=== PATIENT | male | born 1940 | race Caucasian/White ===

== ENCOUNTER 2024-03-25 11:54 | Outpatient (CLI) | payer MEDICARE, OTHER, SELFPAY | END 2024-03-25 11:55 | disposition home or self-care (01) | LOC: AMB 04-09 12:19 | PROVIDERS: PCP Internal Medicine Nephrology; Visit Provider Family Medicine | DX: R41.0 Disorientation, unspecified (principal); R53.1 Weakness | CPT/HCPCS: A0425; A0427 ==

== ENCOUNTER 2024-03-25 12:21 | Emergency (ER) | payer MEDICARE, OTHER, SELFPAY ==
--- NOTE | 2024-03-25 12:32 | CRLHL7_ITS ---
For Patients: As a result of the Century Cures Act, medical imaging exams and procedure reports are released immediately into your electronic medical record. You may view this report before your referring provider. If you have questions, please contact your health care provider. INDICATION: FALL. LEFT BACK PAIN Fall and left low anterior chest pain TECHNIQUE: CT of the chest was performed without intravenous contrast. Please note that all CT scans at this facility use dose modulation, iterative reconstruction, and/or weight-based dosing when appropriate to reduce radiation dose to as low as reasonably achievable. COMPARISON: None. FINDINGS: Medical devices: None. Thyroid: Normal. Lymph nodes: Limited evaluation without IV contrast. No supraclavicular, axillary, mediastinal, or hilar lymphadenopathy. Vasculature: Limited evaluation without IV contrast. Aorta and main pulmonary artery diameters are within normal range. Minimal aortic calcification. Heart: Mild coronary artery calcification. No pericardial effusion. Other mediastinal structures: Large hiatal hernia with likely organoaxial volvulus of the stomach. No wall thickening or surrounding fat stranding. Lung parenchyma: Moderate right lower lobe dependent atelectasis versus scarring. 5 millimeter right upper lobe ground-glass pulmonary nodule (3/27). Consensus guidelines for single ground glass lung nodule less than 6 mm, not applicable if known malignancy or immunocompromise: No routine follow up. Airways: No significant abnormality. Pleura: No significant abnormality. Chest wall: Mild bilateral gynecomastia. Upper abdomen: No significant abnormality. Musculoskeletal: Moderate degenerative changes of the visualized spine. Mild T12 wedge-shaped compression deformity. Chronic healed left posterior 7th and right posterior 10th rib fracture deformities. IMPRESSION: 1. Mild T12 wedge-shaped compression deformity. 2. No acute displaced rib fractures are seen. 3. Large hiatal hernia with likely organoaxial volvulus of the stomach is favored to be chronic. No wall thickening or surrounding fat stranding. Please note that all CT scans at this facility use dose modulation, iterative reconstruction, and/or weight-based dosing when appropriate to reduce radiation dose to as low as reasonably achievable. Dictated by Chaim Hoffmann MD @ 03/25/2024 1:41:45 PM (Electronically Signed)
--- NOTE | 2024-03-25 12:34 | ED_ITS ---
HPI - General Adult General Chief complaint: Weakness Stated complaint: fall Time Seen by Provider: 03/25/24 12:32 History of Present Illness HPI narrative: Pt brought in by EMS for c/o unwitnessed fall and weakness. Pt c /o left side/ rib pain. Has slight bruising to that area. Lives at [facility]. Last time seen was 10 am and found at 11 am on the tile floor near the shower. Shivering. Denies hitting his head and no LOC. 83-year-old man presenting to the emergency department via EMS with TTA Was noted around 10:00 a.m. to be in bed at his assisted living facility; apparently was not ready to get up yet. Staff returned about an hour later and found him also undressed on the floor in the bathroom. Was noted noted to hurt at his left low chest; he indicates this here as well. Denies pain or injury elsewhere. Is noted to be shivering. Has not been noted to have a fever. Denies hitting his and denies head, neck or back pain. Underlying history of dementia and some degree of aphasia. Recall is suspect. Accompanied by son who provides medical information Related Data Allergies Allergy/AdvReac Type Severity Reaction Status Date / Time itraconazole Allergy Intermediate Verified 03/25/24 13:13 rivaroxaban Allergy Intermediate Verified 03/25/24 13:13 Sulfa (Sulfonamide Allergy Intermediate Verified 03/25/24 13:13 Antibiotics) Review of Systems Status of ROS: Reports: 6 or more systems reviewed and unremarkable except as noted in History and below [facility] Social History Smoking Status: Never smoker Do you use any of these nicotine containing products: None How often do you have a drink containing alcohol: never AUDIT-C Alcohol total score: 0 Non-prescribed substance use: denies use Exam Narrative: Exam Narrative: Primary survey Vitals are noted. Temperature initially elevated at 99.9. Pulse 109. Breathing easily with open airway. No evidence of bleeding. GCS of 14 --complicated by dementia with some recall difficulty. Pupils are 2 mm and equally reactive. He is moving all extremities without difficulty. Secondary survey General flushing to his face and to upper mid chest. Warmth here as well. Head is atraumatic. Neck is supple nontender. Chest is with some soreness in mild erythema at the mid anterior left lower rib/margin. Chest with equal rise. Lungs appear to be clear. No pain to palpation of the clavicles or shoulders. No pain or irregularity noted to palpation over the pelvis. He is wearing Attends. Light smell of urine. Extremities appear to be free of injury. Feet are faintly erythematous with thickened toenails. I do not see the induration and heat of cellulitis here. Back nontender and without apparent deformity. Const: Vital Signs, click to edit/add: Vital Signs - 24 hr 03/25/24 12:36 03/25/24 15:18 03/25/24 15:59 Temperature 99.9 F H 99.0 F 97.9 F Pulse Rate [Pulse Oximeter] 109 H Respiratory Rate 20 Blood Pressure [Ri ght Upper Arm] 149/88 H Pulse Oximetry 97 Oxygen Delivery Me thod Room Air Documenting provider has reviewed patient's vital signs: yes Course Vital Signs Vital signs: Initial Vital Signs Temperature 99.9 F H 03/25/24 12:36 Temperature Source Temporal Artery Scan 03/25/24 12:36 Pulse Rate 109 H 03/25/24 12:36 Pulse Rhythm Regular 03/25/24 12:36 Respiratory Rate 20 03/25/24 12:36 Blood Pressure 149/88 H 03/25/24 12:36 Blood Pressure Mean 108 H 03/25/24 12:36 Blood Pressure Position Supine 03/25/24 12:36 Pulse Oximetry 97 03/25/24 12:36 Oxygen Delivery Method Room Air 03/25/24 12:36 Vital Signs Temperature 99.9 F H 03/25/24 12:36 Pulse Rate 109 H 03/25/24 12:36 Respiratory Rate 20 03/25/24 12:36 Blood Pressure 149/88 H 03/25/24 12:36 Pulse Oximetry 97 03/25/24 12:36 Oxygen Delivery Method Room Air 03/25/24 12:36 Temperature 97.9 F 03/25/24 15:59 Pulse Rate 109 H 03/25/24 12:36 Respiratory Rate 20 03/25/24 12:36 Blood Pressure 149/88 H 03/25/24 12:36 Pulse Oximetry 97 03/25/24 12:36 Oxygen Delivery Method Room Air 03/25/24 12:36 Medications Administered Medications: Discontinued Medications Generic Name Dose Route Start Last Admin Trade Name Tess PRN Reason Stop Dose Admin Acetaminophen 1,000 mg 03/25/24 12:33 03/25/24 12:49 Acetaminophen 500 Mg Tablet PO 03/25/24 12:34 1,000 mg ONCE ONE Administration Sodium Chloride 1,000 mls @ 1,000 mls/hr 03/25/24 12:32 03/25/24 13:47 0.9 % Sodium Chloride 1000 Ml IV 03/25/24 13:31 Infused .Q1H ONE Infusion Medical Decision Making MDM Narrative Medical decision making narrative: Appears to be cold/shaking which might represent infectious etiology to this fall. Does not appear to be in significant discomfort beyond the it pain at the left anterior lateral rib margin. Would draw blood cultures and collect labs for evidence of infection. Given location of discomfort I did apply point of care ultrasound to the hepatorenal and splenorenal spaces. Do not see any free fluid in either location. Nor do I see any free fluid around the bladder. Fall and poor recall with reproducible pain anterior chest I do think in this patient justifies CT imaging. I requested CT of the chest. I anticipate this catching some upper abdomen as well. IV contrasted chest CT independently reviewed by me appears to be without evidence of displaced rib fracture. I do not see any unusual fluid collections. Radiology over-read below FALL. LEFT BACK PAIN Fall and left low anterior chest pain TECHNIQUE: CT of the chest was performed without intravenous contrast. Please note that all CT scans at this facility use dose modulation, iterative reconstruction, and/or weight-based dosing when appropriate to reduce radiation dose to as low as reasonably achievable. COMPARISON: None. FINDINGS: Medical devices: None. Thyroid: Normal. Lymph nodes: Limited evaluation without IV contrast. No supraclavicular, axillary, mediastinal, or hilar lymphadenopathy. Vasculature: Limited evaluation without IV contrast. Aorta and main pulmonary artery diameters are within normal range. Minimal aortic calcification. Heart: Mild coronary artery calcification. No pericardial effusion. Other mediastinal structures: Large hiatal hernia with likely organoaxial volvulus of the stomach. No wall thickening or surrounding fat stranding. Lung parenchyma: Moderate right lower lobe dependent atelectasis versus scarring. 5 millimeter right upper lobe ground-glass pulmonary nodule (3/). Consensus guidelines for single ground glass lung nodule less than 6 mm, not applicable if known malignancy or immunocompromise: No routine follow up. Airways: No significant abnormality. Pleura: No significant abnormality. Chest wall: Mild bilateral gynecomastia. Upper abdomen: No significant abnormality. Musculoskeletal: Moderate degenerative changes of the visualized spine. Mild T12 wedge-shaped compression deformity. Chronic healed left posterior 7th and right posterior 10th rib fracture deformities. IMPRESSION: 1. Mild T12 wedge-shaped compression deformity. 2. No acute displaced rib fractures are seen. 3. Large hiatal hernia with likely organoaxial volvulus of the stomach is favored to be chronic. No wall thickening or surrounding fat stranding. Was noted to be near febrile at 99.9 on initial exam. This was done with forehead/temporal artery scan thermometer. Considering degree of flushing with this rash that he has been struggling with for some time, and it palpates warm, this could be contributing to the 99.9 initially measured. Rechecked later orally at 97.9 White count is elevated a little bit at 14.4. Not dental sales representative another labs. I do not know what this might represent. BUN does at 48 creatinine 1.5. Urinalysis with some hematuria. Without flank pain or indication of injury in flank and with normal point of care ultrasound of this area, would follow this u p outpatient. It does not appear that he was down more than 1 hour. I do not see indication of muscular injury or swelling that might suggest that CPK should be collected in evaluation for rhabdomyolysis. Discussed findings in CT imaging with General surgery on-call. Discussed also with Mr. Greco and his son and there are no prior images but on repeat exam does not have pain in the epigastrium or upper abdomen other than what was noted on initial exam that seems more associated with ribs. I think this hiatal hernia and volvulus of the stomach is likely chronic and unrelated to today's apparent fall. No events on [place]. Did give acetaminophen during time in the emergency department. On reassessments has appeared well. Mr. Greco is of good energy and anxious to have his IV removed and to leave the emergency department. Ambulates well; at baseline. See patient discharge plan for further discussion This hiatal hernia involving your stomach -- I think this is a chronic condition and you do not appear to have pain here in your abdomen. Prior imaging, if you have this available, could indicate that this was present. We did see a small amount of blood in your urine. I would recheck this in a couple of weeks to hopefully verify resolution. Can take acetaminophen up to 1000 mg per dose for pain. If pain seems to be isolated in that red area on your anterior ribs, might try lidocaine patch. These are available [id number] as well. Return for increasing weakness, controlled pain, increasing shortness of breath Lab Data Lab results reviewed: Yes I reviewed the patient's lab results Labs: Lab Results 03/25/24 03/25/24 03/25/24 Range/Units 12:33 12:57 14:22 WBC 14.42 H (4.50-11.00) K/uL RBC 4.27 L (4.30-5.90) m/uL Hgb 13.6 (13.5-17.5) gm/dL Hct 40.4 (37.0-53.0) % MCV 95 (80-100) fL MCH 32 (26-34) pg MCHC 34 (32-36) gm/dL RDW Coeff of Carolee 12.0 (11.5-15.5) % Plt Count 232 (140-440) K/uL Neut % (Auto) 89.1 H (42.0-72.0) % Lymph % (Auto) 3.2 L (20-44) % [place] % (Auto) 6.6 (0.0-11.0) % Eos % (Auto) 0.0 (0.0-7.0) % Baso % (Auto) 0.1 (0.0-3.0) % Neut # (Auto) 12.80 H (1.7-7.0) K/uL Lymph # (Auto) 0.50 L (0.90-2.90) K/uL [place] # (Auto) 1.00 H (0.00-0.90) K/UL Eos # (Auto) 0.00 (0.00-0.50) K/uL Baso # (Auto) 0.00 (0.00-0.30) K/uL Abs Immat Gran (auto) 0.10 (0.00-0.30) K/uL Imm/Tot Granulo (auto) 1.0 % Sodium 142 (135-149) mmol/L Potassium 4.1 (3.6-5.1) mmol/L Chloride 108 (96-114) mmol/L Carbon Dioxide 27 (20-32) mmol/L Anion Gap 7 (7-15) mEq/L BUN 48 H (7-30) mg/dL Creatinine 1.5 (0.5-1.5) mg/dL Estimated Creat Clear 34.27 Estimated GFR 46 ml/min Glucose 113 (60-115) mg/dL Calcium 9.4 (8.4-10.6) mg/dL Urine Color Yellow (Yellow) Urine Appearance Clear (Clear) Urine pH 6.0 (5.0-8.5) Ur Specific [place] 1.025 (1.000-1.030) Urine Protein 2+ A (Negative) Urine Glucose (UA) Negative (Negative) Urine Ketones Negative (Negative) Urine Blood 2+ A (Negative) Urine Nitrite Negative (Negative) Urine Bilirubin Negative (Negative) Urine Urobilinogen 0.2 (0.2-1.0) Ur Leukocyte Esterase Negative (Negative) Urine RBC 2-5 A (0-2) Urine WBC 0-2 (0-5) Ur Squamous Epith Cells Few (None-Few) Urine Bacteria None (None) Coarse Granular Casts Few A (None) SARS-CoV-2 (PCR) Negative SARS-CoV-2 (Negative) Influenza Type A (PCR) Negative PCR FLU A (Negative) Influenza Type B (PCR) Negative PCR FLU B (Negative) RSV (PCR) Negative PCR RSV (Negative) Critical Care Time Critical Care Time Critical Care Time: Yes Attestation: The patient required my highest level preparedness to intervene emergently and I personally spent this critical care time directly and personally managing the patient. This critical care time included: Obtaining a history; Examining the patient; Pulse oximetry; Ordering and reviewing of studies; Arranging urgent treatment with development of a management plan; Evaluation of patients response to treatment; Frequent reassessment discussions with other providers. This critical care time was performed to assess and manage the high probability of imminent life-threatening deterioration that could result in multiorgan failure. It was exclusive of separate billable procedures and treating other patients and teaching time. Total Critical Care Time in Minutes: 50 Discharge Plan Discharge Clinical Impression: Fall, Contusion of rib, Compression fracture, Hiatal hernia, Hematuria Patient Disposition: Home w/ Parent or Adult Condition: Improved Additional Instructions: This hiatal hernia involving your stomach -- I think this is a chronic condition and you do not appear to have pain here in your abdomen. Prior imaging, if you have this available, could indicate that this was present. We did see a small amount of blood in your urine. I would recheck this in a couple of weeks to hopefully verify resolution. Can take acetaminophen up to 1000 mg per dose for pain. If pain seems to be isolated in that red area on your anterior ribs, might try lidocaine patch. These are available [id number] as well. Return for increasing weakness, controlled pain, increasing shortness of breath Follow Up/Referrals: Kirill Grayson MD [Primary Care Provider] - Stand Alone Forms: [employer] Info Instructions
[2024-03-25 12:36] VITALS: BP 149/88; PULSE 109; RESP 20; TEMP 37.7; O2SAT 97; BMI 24.6
[2024-03-25] MEDS: ACETAMINOPHEN 500 MG TABLET 1000 MG PO (12:49)
[2024-03-25] MEDS: 0.9 % SODIUM CHLORIDE 1000 ml 1,000 ML IV (12:59)
[2024-03-25 13:10] LABS: Basophils Percent Auto 0.1 % (0.0-3.0); Hematocrit 40.4 % (37.0-53.0); Hemoglobin* 13.6 gm/dL (13.5-17.5); Lymphocytes Percent Auto 3.2 % (20-44); Mean Corpuscular HGB Conc 34 gm/dL (32-36); Mean Corpuscular Hemoglobin 32 pg (26-34); Mean Corpuscular Volume 95 fL (80-100); Monocytes Percent Auto 6.6 % (0.0-11.0); Neutrophils Percent Auto 89.1 % (42.0-72.0); Platelet Count* 232 K/uL (140-440); Red Blood Count 4.27 m/uL (4.30-5.90); White Blood Count* 14.42 K/uL (4.50-11.00)
[2024-03-25 13:23] LABS: Chloride* 108 mmol/L (96-114); Potassium* 4.1 mmol/L (3.6-5.1); Sodium* 142 mmol/L (135-149)
[2024-03-25 13:26] LABS: Anion Gap 7 mEq/L (7-15); Blood Urea Nitrogen* 48 mg/dL (7-30); Carbon Dioxide* 27 mmol/L (20-32); Creatinine* 1.5 mg/dL (0.5-1.5); Est. Creatinine Clearance* 34.27; Estimated Glomerular Filt Rate 46 ml/min; Glucose* 113 mg/dL (60-115)
[2024-03-25 13:27] LABS: Calcium* 9.4 mg/dL (8.4-10.6)
[2024-03-25 13:41] LABS: Slide Review Reflex No
[2024-03-25 13:50] LABS: PCR FLU A Negative PCR FLU A (Negative); PCR FLU B Negative PCR FLU B (Negative); PCR RSV Negative PCR RSV (Negative); SARS PCR* Negative SARS-CoV-2 (Negative)
[2024-03-25 14:32] LABS: Appearance Urine Clear (Clear); Bilirubin Urine Negative (Negative); Blood Urine 2+ (Negative); Color Urine Yellow (Yellow); Glucose Urine Negative (Negative); Ketones Urine Negative (Negative); Leukocyte Esterase Urine Negative (Negative); Nitrite Urine Negative (Negative); Protein Urine 2+ (Negative); Specific Gravity Urine 1.025 (1.000-1.030); Urobilinogen Urine 0.2 (0.2-1.0)
[2024-03-25 14:43] LABS: Coarse Granular Casts Urine Few; Squamous Epithelial Cell Urine Few (None-Few); WBC Urine 0-2 (0-5)
[2024-03-25 15:18] VITALS: TEMP 37.2
[2024-03-25 15:59] VITALS: TEMP 36.6
== END 2024-03-25 16:25 | disposition home or self-care (01) ==
PROVIDERS: Emergency Provider Family Medicine; PCP Internal Medicine Nephrology
DX: S22.089A Unspecified fracture of T11-T12 vertebra, initial encounter for closed fracture (principal); W19.XXXA Unspecified fall, initial encounter; S20.212A Contusion of left front wall of thorax, initial encounter; K44.9 Diaphragmatic hernia without obstruction or gangrene; R31.9 Hematuria, unspecified
CPT/HCPCS: 36415; 71250; 80048; 81001; 85025; 87631; 99284; 99285; 99291; A9270; J7030

== ENCOUNTER 2024-10-10 13:04 | Outpatient (REF) | payer MEDICARE, OTHER, SELFPAY ==
--- OUTSIDE RECORDS SUMMARY | 2024-09-20 10:32 | XMS_ITS | Encounter Summary ---
Author Organization [facility] Address [address] [place] [address] Care Team Providers Care Tie Fastener Name Role Phone None Reported, Pcp Primary Care Provider Unavail able Reason for Visit * Reason Comments Fatigue Encounter Details Date Type Department Care Team (Late st Contact Info) Description 09/20/2024 10:32 AM CDT - 09/20/2024 7:22 PM CDT Emergency [place] [facility] [address] [place] [phone] Noel Barragan, FARHAT, C.N.P., D.N.P. [address] [place] [phone] Dehydration (Primary Dx); Hypernatremia; Failure Renal Acute (Acute Kidney Injury); Acidosis Metabolic Anion Gap; Obstruction Bladder Neck Discharge Disposition: Acute Care Hospital Social History Tobacco Use Types Packs/Day Years Used Date Smoking Tobacco: Never Passive Smoke Exposure: Never Smokeless Tobacco: Never Alcohol Use Standard Drinks/Week Comments Not Currently 14 (1 standard drink = 0.6 oz pure alcohol) Drank beer regularly until 2024. Not drinking much alcohol now. [facility] Utilities Answer Date Recorded In the past 12 months has [employer], gas, oil, or water [employer] threatened to shut off services in your home? No 09/20/2024 Humiliation, Afraid, Rape, and Kick questionnair e Answer Date Recorded Within the last year, have y ou been afraid of your partner or ex-partner? No 09/20/2024 Within the last year, have y ou been humiliated or emotionally abused in other ways by your partner or ex-partner? No Within the last year, have y ou been kicked, hit, slapped, or otherwise physically hurt by your partner or ex-partner? No 09/20/2024 Within the last year, have y ou been raped or forced to have any kind of sexual activity by your partner or ex-partner? No 09/20/2024 Hunger Vital Sign Answer Date Recorded Within the past 12 months, y ou worried that your food would run out before you got the money to buy more. Never true 09/21/19 25 Within the past 12 months, t he food you bought just didn't last and you didn't have money to get more. Never true 09/20/2024 PRAPARE - Transportation Answer Date Re corded In the past 12 months, has l ack of transportation kept you from medical appointments or from getting medications? No 07/2024 In the past 12 months, has l ack of transportation kept you from meetings, work, or from getting things needed for daily living? No 09/20/2024 Housing Stability Answer Date Recorded What is your living situation today? 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 on file Not on file Not on file documented as of this encounter Last Filed Vital Signs Vital Sign Reading Time Taken Comments Blood Pressure 138/76 09/20/2024 7:00 PM CDT Pulse 86 09/20/2024 7:00 PM CDT Temperature 36.4 C (97.5 F) 09/20/2024 7:00 PM CDT Respiratory Rate 18 09/20/2024 7:00 PM CDT Oxygen Saturation 100% 09/20/2024 7:00 PM CDT Inhaled Oxygen Concentration - - Weight 61.6 kg (135 lb 12.9 oz) 025 12:00 PM CDT Height - - Body Mass Index 21.75 08/14/2024 1:56 PM CDT documented in this encounter Medications at Time of Discharge acetaminophen (TylenoL) 500 mg tablet Take 1,000 mg by mouth 2 (two) times a day. And twice daily as needed acyclovir (Zovirax) 400 mg tablet Take 400 mg by mouth 2 (two) times a day. alum-mag hydroxide-simeth (Karol-Lanta) 200-200-20 mg/5 mL suspension Take 30 mL by mouth every 6 (six) hours as needed (gastric distress). amLODIPine (NORVASC) 5 mg tablet Take 1 tablet by mouth daily. 03/08/2023 bisacodyL (Dulcolax) 10 mg suppository Insert 10 mg into the rectum daily as needed for constipation. escitalopram (Lexapro) 10 mg tablet Take 10 mg by mouth daily. fluticasone propionate (Flonase) 50 mcg/actuation nasal spray Administer 2 sprays into each nostril daily as needed for rhinitis or allergies. hydrocortisone 1 % cream Apply 1 Application topically daily as needed (itching). ketoconazole (Nizoral A-D) 1 % shampoo Apply 1 Application topically as needed for dandruff. Sunday and loperamide (Imodium A-D) 2 mg tablet Take 2 mg by mouth 4 (four) times a day as needed for diarrhea. magnesium hydroxide 400 mg/5 mL suspension Take 30 mL by mouth every other day as needed. pantoprazole (PROTONIX) 40 mg EC tablet Take 1 tablet by mouth daily. 03/02/2023 atorvastatin (LIPITOR) 20 mg tablet Take 1 tablet by mouth daily. 03/20/2023 cholecalciferol (VITAMIN D3) 50 mcg (2,000 Unit) capsule Take 1 capsule by mouth daily. 5 documented as of this encounter ED Notes * Noel Barragan APRN, C.N.P., D.N.P. - 09/20/2024 10:54 AM CDT Images from the original note were not included. CHIEF COMPLAINT/REASON FOR VISIT Fatigue HISTORY OF PRESENT ILLNESS Patient with a past medical history of multiple myeloma, frontal temporal dementia, Parkinson's, who resides in memory care in [place] presents to the emergency department today being extremely lethargic, falls asleep easily, in his not eaten in the 48 hours. Patient has not been drinking either. Patient is DNR/DNI and this was confirmed with the son was in the room and his medical/power of senior attorney. The son states he visit in his dad yesterday and he was definitely not like himself and had decreased level of consciousness. He has not been eating he was not interested in talking any fell asleep very easily. This a.m. the dementia care unit called saying he did not eat anything it only yesterday. He is noticeably weaker. On exam patient does have some right upper quadrant abdominal tenderness. Rest of the exam he will fall asleep easily. His oral mucosa is very dry. 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 Negative for chills, diaphoresis and fever. HENT: Negative for sinus pressure and sore throat. Respiratory: Negative for cough, chest tightness and shortness of breath. Cardiovascular: Negative for chest pain. Gastrointestinal: Negative for abdominal pain, constipation, diarrhea, nausea and vomiting. Not eaten in 48 hours. Genitourinary: Negative for dysuria, frequency and urgency. Musculoskeletal: Negative for arthralgias and myalgias. Skin: Negative for rash. Neurological: Positive for weakness. Negative for dizziness and headaches. Hematological: Negative for adenopathy. Does not bruise/bleed easily. All other systems reviewed and are negative. Allergies Reviewed in medical record Current Medications Reviewed in Medical Record. PAST HISTORY Medical Medical History[1] Problem List[2] Surgical Surgical History[3] Family Reviewed in Medical Record Social History Social History Tobacco Use Smoking status: Never Passive exposure: Never Smokeless tobacco: Never Substance Use Topics Alcohol use: Not Currently Alcohol/week: 14.0 standard drinks of alcohol Types: 14 Cans of beer per week Comment: Drank beer regularly until 2024. Not drinking much alcohol now. Social History Substance and Sexual Activity Drug Use Never OBJECTIVE Initial Vital Signs / Weights Initial Vitals Temperature 09/20/24 1042 36.6 ??C Pulse Rate 09/20/24 1040 101 Heart Rate -- Resp Rate 09/20/24 1042 16 Blood Pressure 09/20/24 1042 (!) 161/90 SpO2 09/20/24 1040 95 % Pain Score 09/20/24 1039 0 - No pain Wt Readings from Last 3 Encounters: 09/20/24 61.6 kg 08/14/24 66.2 kg 02/12/24 71.2 kg PHYSICAL EXAMINATION Constitutional: Nursing note and vitals reviewed. No distress. Answers yes or no to most questions, then falls asleep. Appears hypovolemic on exam with his oral mucosa being very dry, skin tenting. HENT: Mouth/Throat: Mucous membranes are moist. No tonsillar exudate. Tongue is dry and leathery. Eyes: Conjunctivae and EOM are normal. Pupils are equal, round, and reactive to light. Neck: Neck supple. Cardiovascular: Normal rate, regular rhythm, S1 normal, S2 normal and normal heart sounds. Pulses are strong and palpable. No murmur heard.Capillary refill: takes less than 3 seconds Pulmonary/Chest: Effort normal and breath sounds normal. There is normal air entry. No respiratory distress. Abdominal: Soft. Bowel sounds are normal. exhibits no distension. There is no abdominal tenderness.There is no rebound and no guarding. Musculoskeletal: General: Normal range of motion. Cervical back: Normal range of motion and neck supple. Lymphadenopathy: He has no cervical adenopathy. Neurological: Alert. He is disoriented. Cranial nerve deficit: unable to participate in exam. Only answers yes or no to questions. Skin: Skin is warm, dry and intact. Skin tenting is present. Psychiatric: He has a normal mood and affect. DIAGNOSTICS Labs Labs Reviewed CBC WITH DIFFERENTIAL, B - Abnormal Result Value Hemoglobin 13.6 Hematocrit 41.1 Erythrocytes 4.20 (*) MCV 97.9 RBC Distrib Width 12.8 Platelet Count 250 Leukocytes 16.3 (*) Neutrophils 14.54 (*) Lymphocytes 0.49 (*) Monocytes 1.28 (*) Eosinophils <0.04 Basophils <0.04 COMPREHENSIVE METABOLIC PANEL, S/P - Abnormal Potassium, P 4.2 Sodium, P 147 (*) Chloride, P 109 (*) Bicarbonate, P 21 (*) Anion Gap, P 17 (*) BUN (Blood Urea Nitrogen), P 65 (*) Creatinine 2.35 (*) Estimated GFR (eGFR) 26 (*) Calcium, Total, P 9.7 Glucose, P 139 Protein, Total, P 7.7 Albumin, P 4.8 Aspartate Aminotransferase (AST), P 18 Alkaline Phosphatase, P 63 Alanine Aminotransferase (ALT), P 17 Bilirubin, Total, P 1.6 (*) MAGNESIUM, S - Abnormal Magnesium, P 2.7 (*) URINALYSIS WITH MICROSCOPIC IF INDICATED, U - Abnormal Source Urine, Urine, Midstream Clarity Clear Color Yellow Blood Small (*) Nitrite Negative Leukocyte Esterase Negative Protein 100 (*) Glucose Negative Ketones, QI(U) Negative Bilirubin Negative pH 5.5 Specific Crescent 1.025 Urobilinogen 0.2 C-REACTIVE PROTEIN (CRP), S/P - Abnormal C-Reactive Protein (CRP), P 18.8 (*) MICROSCOPIC MANUAL - Abnormal White Blood Cells Occ-3 Red Blood Cells 11-20 (*) Dysmorphic Red Blood Cells <=25 Squamous Cells Occ-3 Bacteria Present (*) IFLU A, B, SARS COV-2, PCR, RAPID,V Influenza A, PCR, Rapid, V Negative Influenza B, PCR, Rapid, V Negative SARS CoV-2, PCR, Rapid, V Undetected Infl A/B, SARS CoV-2, PCR, Source Swab, Nasopharynx BACTERIA / JOSEY CULTURE, BLOOD Narrative: Specimen Information: Specimen ID: [id number] Specimen Source: Blood, Peripheral Draw Specimen Comment: Specimen Source Site: Blood Specimen Collection Start Date: 09/20/2024 11:42 AM Specimen Received Date: 09/20/2024 11:56 AM Specimen ID: [id number] Specimen Source: Blood, Peripheral Draw Specimen Comment: Specimen Source Site: Blood Specimen Collection Start Date: 09/20/2024 11:42 AM Specimen Received Date: 09/20/2024 11:56 AM Specimen ID: [id number] Specimen Source: Blood, Peripheral Draw Specimen Comment: Specimen Source Site: Blood Specimen Collection Start Date: 09/20/2024 11:42 AM Specimen Received Date: 09/20/2024 11:56 AM BACTERIA / JOSEY CULTURE, BLOOD Narrative: Specimen Information: Specimen ID: [id number] Specimen Source: Blood, Peripheral Draw Specimen Comment: Specimen Source Site: Blood Specimen Collection Start Date: 09/20/2024 11:54 AM Specimen Received Date: 09/20/2024 11:56 AM Specimen ID: [id number] Specimen Source: Blood, Peripheral Draw Specimen Comment: Specimen Source Site: Blood Specimen Collection Start Date: 09/20/2024 11:54 AM Specimen Received Date: 09/20/2024 11:56 AM Specimen ID: [id number] Specimen Source: Blood, Peripheral Draw Specimen Comment: Specimen Source Site: Blood Specimen Collection Start Date: 09/20/2024 11:54 AM Specimen Received Date: 09/20/2024 11:56 AM LIPASE, S/P Lipase, P 38 LACTATE, B/P Lactate, P 1.2 THYROID-STIMULATING HORMONE-SENSITIVE (S-TSH) TSH, Sensitive 0.7 BLOOD GAS, VENOUS, POCT, B pH, Venous, POCT, B 7.35 pCO2, Venous, POCT, B 41 pO2, Venous, POCT, B 37 HCO3, Venous, POCT, B 22 Base Excess, Venous, POCT, B -3 O2 Saturation, Venous, POCT, B 68 Sample Type, Blood Gas, POCT BAILEE GLUCOSE POCT, B Glucose, POCT, B 127 ECG ECG 12 Lead Result Date: 09/20/2024 Normal sinus rhythm with sinus arrhythmia Normal ECG No previous ECGs available Reviewed by JASVIR Alav Radiology CT Abdomen Pelvis without IV Contrast Final Result 1. Mild left hydronephrosis likely secondary to severe bladder distention. 2. Large hiatal hernia containing stomach, portion of duodenum and portion of pancreas. 3. 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 Consider further evaluation with MRI clinically desired DX Chest Portable 1 View Final Result No acute airspace opacities, pleural effusion, or pneumothorax. Chronic right hemidiaphragm elevation and right greater than left basilar atelectasis. Normal heart size. Hiatal hernia. Procedures None See separate procedure note. ED COURSE ED Course as of 09/20/24 1948 Sat Sep 20, 2024 1045 I performed my initial evaluation of the patient. We discussed Emergency Department course including testing, treatment, and potential disposition based on findings. 1126 Leukocytes(!): 16.3 1126 Neutrophils(!): 14.54 Elevated and corncern for infection. 1129 EXAM: DX CHEST PORTABLE 1 VIEW IMPRESSION: No acute airspace opacities, pleural effusion, or pneumothorax. Chronic right hemidiaphragm elevation and right greater than left basilar atelectasis. Normal heart size. Hiatal hernia. 1129 IMPRESSION: Normal sinus rhythm with sinus arrhythmia Normal ECG No previous ECGs available Reviewed by JASVIR Alva 1133 pH, Venous, POCT, B: 7.35 1133 pCO2, Venous, POCT, B: 41 1133 pO2, Venous, POCT, B: 37 1133 HCO3, Venous, POCT, B: 22 1133 Base Excess, Venous, POCT, B: -3 1133 O2 Saturation, Venous, POCT, B: 68 Venous gas is WNL 1138 Lactate: 1.2 Reassuring 1140 Point of care glucose is 127. 1142 Magnesium, P(!): 2.7 elevated 1142 Sodium, P(!): 147 1142 Chloride, P(!): 109 Elevevated more than likely from dehydration. 1143 Creatinine(!): 2.35 Acute kidney injuring creatinine baseline 1.4 1143 Calcium, Total, P: 9.7 Reassuring with hx of Multiple myeloma 1147 Lipase, P: 38 WNL 1150 C-Reactive Protein (CRP), P(!): 18.8 Mildly elevated 1152 TSH, Sensitive: 0.7 WNL 1153 [facility] has no beds available [address] will get ct without contrast due to his kidney function 1209 Blood(!): Small 1209 Protein Urine Random(!): 100 1209 Nitrite, U: Negative 1209 Leukocyte Esterase: Negative Micro in process 1237 IMPRESSION: 1. Mild left hydronephrosis likely secondary to severe bladder distention. 2. Large hiatal hernia containing stomach, portion of duodenum and portion of pancreas. 3. 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 Consider further evaluation with MRI clinically desired [address] riley cath for severely distended bladder. 1313 Had a long discussion with the son who is medical caregiver and decision maker, just how aggressive they want to be. He thinks he would like fluids and antibiotics if needed. He is DNR DNI, I did reconfirm this with them. They would request [facility] as this is closer for them, otherwise [facility] if that is possible. 1314 Riley cath and was left in place after CT resulted. 1400 UOP with riley catheter 1315 Called atc and talked to Pia MANCINI about getting a bed. 1315 Admit likely initiated, will switch to LR and continue rehydration at 200 an hour 1423 Son updated now. Okay with [facility] if we need to admit there 1436 [facility] declined due to staffing, they will try [facility]. 1604 When rechecked on patient patient now is much more alert, his son says he is way more alert than when he came in. He started to pick it his IV a little bit, nursing as to wrap this up. Still waiting for the MO D in [place] to call back. Family was updated on delays. 1638 Discussed the patient with CONSUELO Padilla. She aggrees with the care in the ED. However, he doesn't need specialty care and feels she should be kept locally. He was been declined locally secondary to possible 1.1 care by nursing. They only have 2 nurses for night. [facility], [facility] and [facility] have all declined due to diversion status and [facility] due to possible 1 to 1 status. I did discuss with Dr. Lopez and she states she would admit him but her hands are tied with the nursing issue. She states she will check on something and get back to me. 1655 Discussed the case with Tre Miller with administration he will look into this and get backto me. 1731 I did hear back from the it security administrator on-call. He has no other suggestions at this time, however it looks like [facility] might have a bed. We are going to target there. 1747 Nursing as accepted the patient in [place], waiting to connect to the provider. 1756 Discussed the case with Carmencita YOUNG who accepts the patient in [place]. [address] [facility] Final Diagnoses: as of 09/20/24 1948 Hypernatremia Failure Renal Acute (Acute Kidney Injury) Acidosis Metabolic Anion Gap Dehydration Obstruction Bladder Neck INTERVENTIONS Medications NaCl 0.9 % bolus 1,000 mL (0 mL intravenous Stopped 09/20/24 1335) MEDICAL DECISION MAKING Assessment and Plan Patient with a past medical history of multiple myeloma, frontal temporal dementia, Parkinson's, who resides in memory [facility] in [place] presents to the emergency department today being extremely lethargic, falls asleep easily, in his not eaten in the 48 hours. Patient has not been drinking either. Patient is DNR/DNI and this was confirmed with the son was in the room and his medical/power of senior attorney. The son states he visit in his dad yesterday and he was definitely not like himself and had decreased level of consciousness. He has not been eating he was not interested in talking any fell asleep very easily. This a.m. the dementia care unit called saying he did not eat anything it only yesterday. He is noticeably weaker. On exam patient does have some right upper quadrant abdominal tenderness. Rest of the exam he will fall asleep easily. His oral mucosa is very dry. ddx includes but is not limited to UTI, pneumonia, sepsis, bacteremia, viral infection, infection NOS, electrolyte imbalance, dehydration, anemia, ACS, IN, PE, hypoxia, COPD, CHF, ICH, stroke, neuropathy, hepatic/drug induced encephalopathy, drug reaction, CA, depression, psychosomatic illness, renal insufficiency/failure, hepatic failure, leukemia. Peripheral IV will be placed. Patient will be given a L of fluid. We will get a CBC, CMP, lipase, lactate, TSH, Mag, UA, blood gas, point of care glucose, blood cultures. Will cath him for a UA. We will get a chest x-ray as well as a CT abdomen pelvis for his right upper quadrant pain. Disposition pending workup. Workup in the emergency department showed a leukocytosis with a left shift. Query whether this is from severe dehydration versus infection. I do not see any source of infection at this time. Patient has hypernatremia, hyperchloremia. He also has significant elevation in his creatinine greater than 1.0 rise. Query whether this is from outlet obstruction as he came into the emergency department with severely distended bladder. Riley was placed and this is decompressed. Due to his alteration in mental status, dehydration, acute kidney injury, and significant fatigue I do believe that is best to admit this patient for ongoing fluid resuscitation. Family agrees. They would do antibiotics if needed again patient is DNR DNI. This was confirmed. There was a delay getting a bed as the entire Health system is on divert, will target [place] now. Did update the son. Patient now seems much more alert than when he came in. I feel the fluids are helping. He has had a L of fluid plus now the Ringer's lactate at 200 cc an hour. We will decrease this after another L is in. I did discuss the case with Carmencita Pizano PA-C in [place], she accepts thepatient in transfer. Unfortunately [facility] as unable to take the patient, [facility] was called they were unable to take the patient, we have called johnson baker in [place] for BLS transport. Son is aware of the need to transport the patient back home and he agrees to do this. He is also awareof the need to admit in [place] as this is the only bed available in the health system. I discussed the case with Carmencita YOUNG in [place] hospitalist who accepts the patient. We are also unable tosecure transport for this patient. Being that the 2 L of IV fluids is in, we can kept the IV, the son is willing to take the patient, I believe this would be safe. He is comfortable managing his father. I think this is a reasonable approach. In the meantime patient was signed out to the hat lining paster. Please see their note for any additional information. . DIFFERENTIAL DIAGNOSES As above. PROBLEMS ADDRESSED THIS VISIT As above. Care is significantly affected by the following Social Determinants of Health: none. I reviewed the following external records: primary care records, prior outpatient labs, prior outpatient radiology tests and inpatient records. The following tests were considered but ultimately not performed: none. Escalation of care, including admission/observation, considered: none. DIAGNOSIS Final diagnoses: [E87.0] Hypernatremia [N17.9] Failure Renal Acute (Acute Kidney Injury) [E87.29] Acidosis Metabolic Anion Gap [E86.0] Dehydration [N32.0] Obstruction Bladder Neck DISPOSITION [facility] med surg. DISCHARGE/TRANSFER VITAL SIGNS Vitals: 09/20/24 1900 BP: 138/76 Pulse: 86 Resp: 18 Temp: 36.4 ??C SpO2: 100% Noel Barragan, DNP, LAB ENGINEER, MICROGRINDER OPERATOR-C, AGACNP-BC, ENP-C Emergency Medicine [1] Past Medical History: Diagnosis Date Arthritis Rheumatoid (HCC) 1998 Cataract 2013 Coronary Artery Disease Without Angina Pectoris Dementia (HCC) 2023 Dermatitis 2019 Diabetes Mellitus NOS 1998 Headache Unspecified 2016 Malignant Primary Neoplasm (Unknown Site) Unspecified (HCC) 2019 multiple myeloma Other Injury Of Unspecified Body Region 2016 [address]ism Unspecified (HCC) ST Elevation Myocardial Infarction Of Unspecified Site (HCC) 2004 Stone Kidney 2014 [2] Patient Active Problem List Diagnosis Multiple Myeloma Not Having Achieved Remission (HCC) Other Intermediate Current Drug Therapy Anemia 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 09/20/241947 documented in this encounter Plan of Treatment Upcoming Encounters Date Type Department Care Team (Latest Contact Info) Description 10/20/2024 11:00 AM CDT Comprehensive Visit Department of Urology in [address] [phone] Kimberly Sheldon, THOR, P.A.-C., P.A. [address] [phone] Discharge Disposition: Home or Self Care 10/21/2024 7:45 AM CDT Clinical Communication Virtual Review in [place], [place] [address] [place] [phone] 10/27/2024 11:00 AM CDT Appointment Department of Laboratory Medicine and Pathology, [facility] in [place], [place] [address] [place] [phone] Mira Valencia APRN, C.N.P., D.N.P. [address] [place] [phone] 10/27/2024 1:00 PM CDT Comprehensive Visit Department of Palliative Care in [place], [place] [address] [place] [phone] Faith Mahmood M.D., M.S. [address] [place] [phone] 10/27/2024 3:00 PM CDT Appointment Department of Radiology, [facility], in [place], [place] [address] [place] [phone] Mira Valencia APRN, C.N.P., D.N.P. [address] [place] [phone] 10/29/2024 2:00 PM CDT Telemedicine Department of Medical Genetics in [place], [place] [address] [place] [phone] Óscar Gallegos M.D. [address] [place] [phone] Dora Hernandez M.S., [facility] [address] [place] [phone] documented as of this encounter Procedures Procedure Name Priority Date/Time Associated Diagnosis Comments CT ABDOMEN PELVIS WITHOUT IV CONTRAST RAD - Semiurgent (Fast; most ED patients; some inpatients) 09/20/2024 12:07 PM CDT IFLU A, B, SARS COV-2, PCR, RAPID,V STAT 09/20/2024 12:00 PM CDT BACTERIA / JOSEY CULTURE, BLOOD STAT 09/20/2024 11:54 AM CDT BACTERIA / JOSEY CULTURE, BLOOD STAT 09/20/2024 11:42 AM CDT GLUCOSE POCT, B Routine 09/20/2024 11:37 AM CDT C-REACTIVE PROTEIN (CRP), S/P STAT 09/20/2024 11:35 AM CDT URINALYSIS WITH MICROSCOPIC IF INDICATED, U Routine 09/20/2024 11:11 AM CDT HC URINALYSIS AUTO W MICRO Routine 09/20/2024 11:11 AM CDT VBG (VENOUS BLOOD GAS), POCT, B STAT 09/20/2024 11:10 AM CDT CBC WITH DIFFERENTIAL, B STAT 09/20/2024 11:10 AM CDT MAGNESIUM, S STAT 09/20/2024 11:10 AM CDT LIPASE, S/P STAT 09/20/2024 11:10 AM CDT LACTATE, B/P STAT 09/20/2024 11:10 AM CDT COMPREHENSIVE METABOLIC PANEL, S/P STAT 09/20/2024 11:10 AM CDT THYROID-STIMULATING HORMONE-SENSITIVE (S-TSH) STAT 09/20/2024 11:09 AM CDT ECG STAT 09/20/2024 11:05 AM CDT DX CHEST PORTABLE 1 VIEW RAD - Semiurgent (Fast; most ED patients; some inpatients) 09/20/2024 11:05 AM CDT documented in this encounter Results * CT Abdomen Pelvis without IV Contrast (09/20/2024 12:07 PM CDT) Anatomical Region Laterality Modality Abdomen, Pelvis, Abdominal R ST LOS, Abdominal ARZ LOS, Abdominal FLA LOS N/A Computed Tomography 09/20/2024 12:1 0 PM CDT Impressions 09/20/2024 12:26 PM CDT 1. Mild left hydronephrosis likely secondary to severe bladder distention. 2. Large hiatal hernia containing stomach, portion of duodenum and portion of pancreas. 3. 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 Consider further evaluation with MRI clinically desired Narrative 09/20/2024 12:26 PM CDT EXAM: CT ABDOMEN PELVIS WITHOUT IV CONTRAST COMPARISON: PET CT 04/18/2023, radiographs 09/25/2023 FINDINGS: Lower Thorax: Chronic right hemidiaphragm elevation and subsegmental right basilar atelectasis. Trace left basilar atelectasis. Large hiatal hernia containing stomach, proximal duodenum and a portion of the pancreas. Liver: Few small hypoattenuating foci too small to characterize, but most likely simple cysts Gallbladder/bile ducts: No gallstones or billiary dilation Pancreas: Partially within the hiatal hernia. 12 mm hypoattenuating lesion in the head/neck on series 3 image 110. No ductal dilation Spleen: Within normal limits Adrenal glands: Within normal limits Kidneys/Ureters:Mild left hydronephrosis. No left renal or ureteral calculi . Nonobstructing right renal calculi. Simple appearing cysts bilaterally. Gastrointestinal tract: No wall thickening. Normal caliber large and small bowel. Appendix within normal limits. Colonic diverticulosis without definitive evidence of acute diverticulitis Peritoneum/Retroperitoneum: No free air or free fluid. No suspicious nodule or mass. Lymph nodes: No lymphadenopathy. Vascular: Normal caliber aorta. Atherosclerosis Pelvis: No free fluid. Severely distended bladder.Enlarged prostate Bones/Soft Tissues: No acute or suspicious soft tissue or osseous abnormality. Degenerative changes in the spine. Left greater than right fat-containing inguinal hernias. Surgical changes of the right femur. Multiple chronic compression fractures in the lumbar spine and at T12. Multiple hemangiomas and/or sequela of prior multiple myeloma. Procedure Note Russell Mandujano M.D. - 09/20/2024 EXAM: CT ABDOMEN PELVIS WITHOUT IV CONTRAST COMPARISON: PET CT 04/18/2023, radiographs 09/25/2023 FINDINGS: Lower Thorax: Chronic right hemidiaphragm elevation and subsegmental rightbasilar atelectasis. Trace left basilar atelectasis. Large hiatal herniacontaining stomach, proximal duodenum and a portion of the pancreas. Liver: Few small hypoattenuating foci too small to characterize, but mostlikely simple cysts Gallbladder/bile ducts: No gallstones or billiary dilation Pancreas: Partially within the hiatal hernia. 12 mm hypoattenuating lesionin the head/neck on series 3 image 110. No ductal dilation Spleen: Within normal limits Adrenal glands: Within normal limits Kidneys/Ureters:Mild left hydronephrosis. No left renal or ureteralcalculi . Nonobstructing right renal calculi. Simple appearing cystsbilaterally. Gastrointestinal tract: No wall thickening. Normal caliber large and smallbowel. Appendix within normal limits. Colonic diverticulosis withoutdefinitive evidence of acute diverticulitis Peritoneum/Retroperitoneum: No free air or free fluid. No suspiciousnodule or mass. Lymph nodes: No lymphadenopathy. Vascular: Normal caliber aorta. Atherosclerosis Pelvis: No free fluid. Severely distended bladder.Enlarged prostate Bones/Soft Tissues: No acute or suspicious soft tissue or osseousabnormality. Degenerative changes in the spine. Left greater than rightfat-containing inguinal hernias. Surgical changes of the right femur.Multiple chronic compression fractures in the lumbar spine and at T12. Multiple hemangiomas and/or sequela of priormultiple myeloma. IMPRESSION: 1. Mild left hydronephrosis likely secondary to severe bladderdistention. 2. Large hiatal hernia containing stomach, portion of duodenum and portionof pancreas. 3. 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 Consider furtherevaluation with MRI clinically desired Noel Barragan APRN, C.N.P., D.N.P. IMG CT PROCE DURES Final Result * Influenza A/B, SARS CoV-2, PCR, Rapid Symptomatic (09/20/2024 12:00 PM CDT) Influenza A, PCR, Rapid, V Negative Negative 09/20/2024 12:00 PM CDT CNFL Influenza B, PCR, Rapid, V Negative Negative 09/20/2024 12:00 PM CDT CNFL SARS CoV-2, PCR, Rapid, V Undetected Undetected 09/20/2024 12:00 PM CDT CNFL Infl A/B, SARS CoV-2, PCR, Source Swab, Nasopharynx 09/20/2024 12:00 PM CDT CNFL Swab (Nasopharynx) 09/20/2024 12:00 PM CDT 09/20/2024 12:00 PM CDT Jyothi Rice APRN.N.P., D.N.P. LAB MICROBIOLOGY - GENERAL ORDERABLES Final Result Performing Organization Address [facility] Co de Phone Number [address] [address], [facility] in [address] [address] * Bacteria / Josey Culture, Blood #2 (09/20/2024 11:54 AM CDT) Bacteria/Hilaria da Culture, Blood No growth after 5 day/s of incubation. 09/25/2024 12:02 PM CDT CNFL Blood (Blood, Peripheral Draw) 09/20/2024 11:54 AM CDT 09/20/2024 11:56 AM CDT Comment:Specimen Source Site : Blood us Noel Barragan APRN, Jyothi.N.P., D.N.P. LAB MICROBIOLOGY - GENERAL ORDERABLES Final Result Performing Organization Address [facility] Co de Phone Number [address] [address], [facility] in [address] [address] * Bacteria / Josey Culture, Blood #1 (09/20/2024 11:42 AM CDT) Bacteria/Hilaria da Culture, Blood No growth after 5 day/s of incubation. 09/25/2024 12:02 PM CDT CNFL Blood (Blood, Peripheral Draw) 09/20/2024 11:42 AM CDT 09/20/2024 11:56 AM CDT Comment:Specimen Source Site : Blood Jyothi Rice APRN.N.P., D.N.P. LAB MICROBIOLOGY - GENERAL ORDERABLES Final Result [facility] [address] [place] [id number], [place] [address] * Glucose, POCT (09/20/2024 11:37 AM CDT) Glucose, POCT, B 127 70 - 140 mg/dL 09/20/2024 11:37 AM CDT [facility] Blood 09/20/2024 11:3 7 AM CDT 09/20/2024 11:47 AM CDT us Generic Rals LAB POCT ORDERABLES-MANUAL Final Result Performing Organization Address City/[facility]/[place] [address], [place] [address] * (ABNORMAL) CRP (C-Reactive Protein) (09/20/2024 11:35 AM CDT) C-Reactive Protein (CRP), P 18.8(H) <5.0 mg/L 09/20/2024 11:47 AM CDT [facility] Blood (Blood, Venous) 09/20/2024 11:35 AM CDT 09/20/2024 11:35 AM CDT Noel Barragan APRN, C.N.P., D.N.P. LAB BLOOD AD D-ON Final Result [facility] [address] [place] [address], [place] [address] * (ABNORMAL) Microscopic Manual (09/20/2024 11:11 AM CDT) White Blood Cells Occ-3 /hpf 09/20/2024 12:13 PM CDT CNFL Comment: ----REFERENCE VALUE---- Males: 0-3 Females: 0-10 Unknown: 0-10 Red Blood Cells 11-20(A) 0 - 2 /hpf 12:13 PM CDT CNFL Dysmorphic Red Blood Cells <=25 <=25 % 09/20/2024 12:13 PM CDT CNFL Squamous Cells Occ-3 /hpf 09/20/2024 12:13 PM CDT CNFL Bacteria Present(A) None Seen 09/20/2024 12:13 PM CDT CNFL Urine 09/20/2024 11:1 1 AM CDT 09/20/2024 12:01 PM CDT us Noel Barragan APRN, C.N.P., D.N.P. LAB URINE OR DERABLES Final Result [facility] [address] [place] [address], [facility] CNFL [facility] [place] [address] * (ABNORMAL) Urinalysis with Microscopic if Indicated: Urine, Midstream (09/20/2024 11:11 AM CDT) Source Urine, Urine, Midstream 09/20/2024 12:01 PM CDT CNFL Clarity Clear Clear 09/20/2024 12:03 PM CDT CNFL Color Yellow 09/20/2024 12:03 PM CDT CNFL Comment: ----REFERENCE VALUE---- Colorless Yellow Zeinab Blood Small(A) Negative 09/20/2024 12:03 PM CDT CNFL Nitrite Negative Negative 09/20/2024 12:03 PM CDT CNFL Leukocyte Esterase Negative Negative 09/20/2024 12:03 PM CDT CNFL Protein 100(A) mg/dL 09/20/2024 12:03 PM CDT CNFL Comment: ----REFERENCE VALUE---- Negative Trace Glucose Negative Negative mg/dL 09/20/2024 12:03 PM CDT CNFL Ketones, QI(U) Negative Negative mg/dL 09/20/2024 12:03 PM CDT CNFL Bilirubin Negative Negative 09/20/2024 12:03 PM CDT CNFL pH 5.5 5.0 - 8.0 09/20/2024 12:03 PM CDT CNFL Specific Crescent 1.025 1.001 - 1.035 09/20/2024 12:03 PM CDT CNFL Urobilinogen 0.2 0.2 - 1.0 mg/dL 09/20/2024 12:03 PM CDT CNFL Urine (Urine, Midstream) 09/20/2024 11:11 AM CDT 09/20/2024 12:01 PM CDT us Noel Barragan APRN, C.N.P., D.N.P. LAB URINE OR DERABLES Final Result Performing Organization Address City/State/[facility] Co de Phone Number [facility] [address] [place] [address], [facility] CNFL [facility] [place] [address] * Blood Gas, Venous, POCT, Blood (09/20/2024 11:10 AM CDT) pH, Venous, POCT, B 7.35 7.32 - 7.43 09/20/2024 11:25 AM CDT CNFL pCO2, Venous, POCT, B 41 41 - 51 mm Hg 09/20/2024 11:25 AM CDT CNFL pO2, Venous, POCT, B 37 Not applicable mm Hg 09/20/2024 11:25 AM CDT CNFL HCO3, Venous, POCT, B 22 Not applicable mmol/L 09/20/2024 11:25 AM CDT CNFL Base Excess, Venous, POCT, B -3 Not applicable mmol/L 09/20/2024 11:25 AM CDT CNFL O2 Saturation, Venous, POCT, B 68 Not applicable % 09/20/2024 11:25 AM CDT CNFL Sample Type, Blood Gas, POCT BAILEE 09/20/2024 11:25 AM CDT CNFL Blood (Blood, Venous) 09/20/2024 11:10 AM CDT 09/20/2024 11:18 AM CDT us Noel Barragan APRN, Jyothi.N.P., D.N.P. LAB POCT ORD ERABLES - DEVICE Final Result [address] [address], [address] [address] * (ABNORMAL) Magnesium (09/20/2024 11:10 AM CDT) Magnesium, P 2.7(H) 1.7 - 2.3 mg/dL 09/20/2024 11:41 AM CDT CNFL Blood (Blood, Venous) 09/20/2024 11:10 AM CDT 09/20/2024 11:18 AM CDT us Noel Barragan APRN, Jyothi.N.P., D.N.P. LAB BLOOD AD D-ON Final Result [address] [address], [address] [address] * Lactate (09/20/2024 11:10 AM CDT) Lactate, P 1.2 0.5 - 2.2 mmol/L 09/20/2024 11:37 AM CDT CNFL Blood (Blood, Venous) 09/20/2024 11:10 AM CDT 09/20/2024 11:18 AM CDT us Noel Barragan APRN, Jyotih.N.P., D.N.P. LAB BLOOD NO N ADD-ON Final Result [address] [address], [facility] CNFL [facility] [place] [address] * Lipase (09/20/2024 11:10 AM CDT) Lipase, P 38 13 - 60 U/L 09/20/2024 11:41 AM CDT CNFL Blood (Blood, Venous) 09/20/2024 11:10 AM CDT 09/20/2024 11:18 AM CDT us Noel Barragan APRN, C.N.P., D.N.P. LAB BLOOD AD D-ON Final Result [facility] [address] [place] [address], [facility] [place] [address] * (ABNORMAL) Comprehensive Metabolic Panel (09/20/2024 11:10 AM CDT) Potassium, P 4.2 3.6 - 5.2 mmol/L 09/20/2024 11:41 AM CDT CNFL Sodium, P 147(H) 135 - 145 mmol/L 09/20/2024 11:41 AM CDT CNFL Chloride, P 109(H) 98 - 107 mmol/L 09/20/2024 11:41 AM CDT CNFL Bicarbonate, P 21(L) 22 - 29 mmol/L 09/20/2024 11:41 AM CDT CNFL Anion Gap, P 17(H) 7 - 15 09/20/2024 11:41 AM CDT CNFL BUN (Blood Urea Nitrogen), P 65(H) 8 - 24 mg/dL 09/20/2024 11:41 AM CDT CNFL Creatinine 2.35(H) 0.74 - 1.35 mg/dL 09/20/2024 11:41 AM CDT CNFL Estimated GFR (eGFR) 26(L) >=60 mL/min/BS A 09/20/2024 11:41 AM CDT CNFL Comment: Estimated GFR calculated using the 2020 CKD_EPI creatinine equation. Calcium, Total, P 9.7 8.8 - 10.2 mg/dL 09/20/2024 11:41 AM CDT CNFL Glucose, P 139 70 - 140 mg/dL 09/20/2024 11:41 AM CDT CNFL Protein, Total, P 7.7 6.3 - 7.9 g/dL 09/20/2024 11:41 AM CDT CNFL Albumin, P 4.8 3.5 - 5.0 g/dL 09/20/2024 11:41 AM CDT CNFL Aspartate Aminotransferase (AST), P 18 8 - 48 U/L 09/20/2024 11:41 AM CDT CNFL Alkaline Phosphatase, P 63 40 - 129 U/L 09/20/2024 11:41 AM CDT CNFL Alanine Aminotransferase (ALT), P 17 7 - 55 U/L 09/20/2024 11:41 AM CDT CNFL Bilirubin, Total, P 1.6(H) 0.0 - 1.2 mg/dL 09/20/2024 11:41 AM CDT CNFL Blood (Blood, Venous) 09/20/2024 11:10 AM CDT 09/20/2024 11:18 AM CDT us Noel Barragan APRN, C.N.P., D.N.P. LAB BLOOD AD D-ON Final Result Performing Organization Address [facility]/State/[facility] Co de Phone Number [facility] [address] [place] [address], [facility] in [address] [address] * (ABNORMAL) CBC with Differential, Blood (09/20/2024 11:10 AM CDT) Hemoglobin 13.6 13.2 - 16.6 g/dL 09/20/2024 11:23 AM CDT CNFL Hematocrit 41.1 38.3 - 48.6 % 09/20/2024 11:23 AM CDT CNFL Erythrocytes 4.20(L) 4.35 - 5.65 x10(12)/L 09/20/2024 11:23 AM CDT CNFL MCV 97.9 78.2 - 97.9 fL 09/20/2024 11:23 AM CDT CNFL RBC Distrib Width 12.8 11.8 - 14.5 % 09/20/2024 11:23 AM CDT CNFL Platelet Count 250 135 - 317 x10(9)/L 09/20/2024 11:23 AM CDT CNFL Leukocytes 16.3(H) 3.4 - 9.6 x10(9)/L 09/20/2024 11:23 AM CDT CNFL Neutrophils 14.54(H) 1.56 - 6.45 x10(9)/L 09/20/2024 11:23 AM CDT CNFL Lymphocytes 0.49(L) 0.95 - 3.07 x10(9)/L 09/20/2024 11:23 AM CDT CNFL Monocytes 1.28(H) 0.26 - 0.81 x10(9)/L 09/20/2024 11:23 AM CDT CNFL Eosinophils <0.04 0.03 - 0.48 x10(9)/L 09/20/2024 11:23 AM CDT CNFL Basophils <0.04 0.01 - 0.08 x10(9)/L 09/20/2024 11:23 AM CDT CNFL Blood (Blood, Venous) 09/20/2024 11:10 AM CDT 09/20/2024 11:18 AM CDT Noel Barragan APRN, C.N.P., D.N.P. LAB BLOOD AD D-ON Final Result [facility] [address] [place] [address], [facility] in [address] [address] * S-TSH (Thyroid-Stimulating Hormone - Sensitive) (09/20/2024 11:09 AM CDT) TSH, Sensitive 0.7 0.3 - 4.2 mIU/L 09/20/2024 11:51 AM CDT CNFL Blood (Blood, Venous) 09/20/2024 11:09 AM CDT 09/20/2024 11:18 AM CDT us Noel Barragan APRN, C.N.P., D.N.P. LAB BLOOD AD D-ON Final Result Performing Organization Address [facility] Co de Phone Number [facility] [address] [place] [address], [facility] in [address] [address] * ECG 12 Lead (09/20/2024 11:05 AM CDT) Ventricular Rate ECG/Min 93 BPM MUSE [place] Interval 138 ms MUSE QRSD Interval 78 ms MUSE QT Interval 356 ms MUSE QTC Interval 442 ms MUSE P Egan 64 degrees MUSE R Egan 61 degrees MUSE T Wave Egan 46 degrees MUSE 09/20/2024 11:0 5 AM CDT 09/20/2024 11:16 AM CDT Impressions MUSE - 09/20/2024 11:16 AM CDT Normal sinus rhythm with sinus arrhythmia Normal ECG No previous ECGs available Reviewed by JASVIR Alva Narrative Procedure Note Francis Bernstein M.D. - 09/20/2024 IMPRESSION: Normal sinus rhythm with sinus arrhythmia Normal ECG No previous ECGs available Reviewed by JASVIR Alva us Noel Barragan APRN, Jyothi.N.P., D.N.P. ECG ORDERABL ES Final Result Performing Organization Address City/[facility]/ZIP Co de Phone Number MUSE NA * DX Chest Portable 1 View (09/20/2024 11:05 AM CDT) Anatomical Region Laterality Modality Chest, Thoracic RST LOS, Tho racic ARZ LOS, Thoracic FLA LOS N/A Digital Radiography Impressions 09/20/2024 11:11 AM CDT No acute airspace opacities, pleural effusion, or pneumothorax. Chronic right hemidiaphragm elevation and right greater than left basilar atelectasis. Normal heart size. Hiatal hernia. Narrative 09/20/2024 11:11 AM CDT EXAM: DX CHEST PORTABLE 1 VIEW Procedure Note Russell Mandujano M.D. - 09/20/2024 EXAM: DX CHEST PORTABLE 1 VIEW IMPRESSION: No acute airspace opacities, pleural effusion, or pneumothorax. Chronicright hemidiaphragm elevation and right greater than left basilaratelectasis. Normal heart size. Hiatal hernia. us Noel Barragan APRN, C.N.P., D.N.P. 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 Scheduled Medication Order 09/18/2024 09/19/2024 09/20/2024 NaCl 0.9 % bolus 1,000 mL (COMPLETED) 1,000 mL, intravenous, at 1,000 mL/hr, Administer over 1 Hours, Once, On 09/20/24 at 1055, For 1 dose 1148 (New Bag - Prov ider: Manfred S Snyder, R.N.)[id number] (Stopped - Provider: Jaky Werner R.N.) Continuous Medication Order 09/18/2024 09/19/2024 09/20/2024 Lactated Ringer's (CANCELED) 200 mL/hr, intravenous, Continuous, Starting on 09/20/24 at 1335 1339 (New Bag - Prov ider: Jaky Werner R.N.)1900 (Stopped - Provider: Savi Millard R.N.) documented in this encounter Additional Health Concerns Infection Onset Date Last Indicated Resolved Time COVID19 Pending 09/20/2024 09/20/2024 09/20/2024 1 2:24 PM CDT documented as of this encounter Care Teams Tie Fastener Relationship Specialty Start Date End Date None Reported, Pcp PCP - General Family Medicine 09/20/24 documented as of this encounter
--- OUTSIDE RECORDS SUMMARY | 2024-09-20 21:14 | XMS_ITS | Encounter Summary ---
Author Organization [facility] Address [address] [place] [address] Care Team Providers Care Tile Presser Name Role Phone None Reported, Pcp Primary Care Provider Unavail able Reason for Referral * Outpatient (Routine) - Authorized Specialty Diagnoses / Procedures Referred By Contac t Referred To Contact Diagnoses Retention Urinary Procedures URO Uroflow Julieth Cramer APRN, C.N.P. [address] [place] [address] Phone: tel: fax: [facility] Referral ID Status Reason Start Date Expiration Date V isits Requested Visits Authorized [id number] Authorized 09/24/2024 12/25/2025 1 1 * Outpatient (Routine) - Authorized Specialty Diagnoses / Procedures Referred By Contac t Referred To Contact Urology Diagnoses Retention Urinary Julieth Cramer APRN, C.N.P. [address] [place] [address] Phone: tel: fax:[phone] [facility] Region Referral ID Status Reason Start Date Expiration Date V isits Requested Visits Authorized [id number] Authorized 09/24/2024 03/26/2026 1 1 Encounter Details Date Type Department Care Team (Late st Contact Info) Description 09/20/2024 9:14 PM CDT - 09/24/2024 12:00 PM CDT Hospital Encounter [facility], [facility], Second Floor [address] [place], [place] [phone] Iris Pizano P.A.-C., P.A. [address] [place] [phone] Julieth Cramer APRN, C.N.P. [address] [place] [phone] Failure Renal Acute (Acute Kidney Injury) [N17.9] [...] until 2024. Not drinking much alcohol now. [facility] Utilities Answer Date Recorded In the past 12 months has [facility] [employer], gas, oil, or water [employer] threatened to shut off services in your [...] your living situation today? I have a [facility] place to live 09/20/2024 Sex and Gender Information Value Date Recorded Sex Assigned at Male 04/16/2023 6:35 PM TURNTABLE ENGINEER Legal Sex Male 5:48 PM TURNTABLE ENGINEER Gender Identity Male 04/16/2023 6:35 PM TURNTABLE ENGINEER Sexual Orientation Straight 04/16/2023 6: 35 PM TURNTABLE ENGINEER Occupation Industry Job Start Date Job End [...] 12:00 PM CDT HOSPITAL DISCHARGE SUMMARY Hospital: [facility] Discharging provider: Julieth Cramer APRN, C.N.P. Primary Care Providers: None Reported, Pcp (General) No address on file Admission date: 09/20/2024 Discharge date: 09/24/2024 PRINCIPAL DIAGNOSIS Failure Renal Acute (Acute Kidney Injury) SECONDARY DIAGNOSES Patient Active Problem List Diagnosis Multiple Myeloma Not Having Achieved Remission (HCC) Other Senior Living Current Drug Therapy Anemia Iron Deficiency Major [...] dementia who lives in Memory Care in [place], presenting to the ED with generalized weakness, lethargy and poor oral intake; staff reported little to no food or water intake for the past 48 hours. Per report from the ED provider in [place], staff at his nursing facility had noticed [...] of systems. In the emergency department in [place], he was vitally stable and on room [...] one liter of fluids and admitted to [facility] as admission could not be accommodated in , , or [place]. On [facility], patient initially had a Riley catheter but was pulling on it and it was making him more agitated so it was removed and he was able to complete a voiding trial. On thefollowing day, patient developed worsening tenderness over his bladder during abdominal palpation and flank tenderness so Riely catheter was replaced with on immediate [address] [...] completed antibiotics during hospitalization Procedures None DISPOSITION: Custodial Facility CONDITION AT DISCHARGE: Stable OUTPATIENT FOLLOW [...] 84 y.o. male who was admitted to [facility] 09/20/2024 due to Failure Renal Acute (Acute Kidney Injury) [N17.9]. ASSESSMENT / PLAN ASSESSMENT CM called facility at [phone], no answer. Will attempt again. CM relayed message to the care team of facility request, [facility] would also like provider notes from this hospital stay and any pertinent labs or results be faxed to [phone]. PLAN Discharge Disposition and/or services: Level of Care: Assisted Living/Memory Care Assisted Living Reconnect: The patient is being prepared to return to facility on 09/24/2024 at 12:00PM if medically ready for transfer. Contact Corrosion Prevention Metal Sprayer if time needs to be changed. Return transportation will be provided by family Pablo, Son, Destination - Admitted Since 09/20/2024 Service Provider Services Address Phone Fax Patient Preferred [facility] [address] [place] [address] [address] [facility] [phone] -- Contact: Facility Pharmacy: [facility]. All prescriptions should be sent at time of discharge. Facility prefers patient arrive by 2pm. [facility] would also like provider notes from this hospital stay and any pertinent labs or results be faxed to [phone]. NURSING: Complete documentation in the Discharge Navigator including Nursing Report Info and Facility/Next Level of Care Info Contact facility to give report prior to patient discharge Send or request CITY PLANNING AIDE to send Facility After Visit Summary and required packet of dismissal information to facility. PRIMARY SERVICE: e-fax prescriptions for all controlled medications. Facility After Visit Summary to include: All discharge medications include dosage, times for administration, diagnosis, and stop date. Ongoing care - wound care, infection precautions, diet, oxygen parameters PT/OT orders needed: No Corrosion Prevention Metal Sprayer : Will continue to follow and assist if needs arise. Nan David R.N. 09/24/24 * Julieth Cramer APRN, C.N.P. 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 Following with Hematology in [place]. -continue with regular outpatient follow up with [...] work consulted with Nurse Luz Marina at [facility] ([phone]) to lettviv know that the patient will be ready for discharge by 12:00 on 09/23/24. This automobile service writer provided Luz Marina with patient's nurse's number for a nurse to nurse conversation. This automobile service writer also contacted patient's son, Pablo ([phone]) and Pablo verified that he would be able to transport his father tomorrow at that time. OBJECTIVE Adi Greco is an 84 year old male who was admitted for Failure Renal Acute (Acute Kidney Injury) [N17.9] ASSESSMENT / PLAN ASSESSMENT This automobile service writer did not assess this patient. Patient is on a 1:1 and discussed this with the team. Dee Dee is doing a trial to ween patient off of 1:1. PLAN Patient to discharge back to [facility] at 12:00 on 09/24/2024. Son, Pablo will provide transportation. Social Work will continue to be available for discharge planning needs. Juliana Xavier Trinidad., L.I.C.S.W. 09/23/24 * Lien Torres R.N. - 09/23/2024 2:40 PM CDT RN received a phone call from [facility]. Upon discharge [facility] would like AVS sent with son during transport. They would also like provider notes from this hospital stay and any pertinent labs or results be faxed [phone]. * Iris Stewart P.T., D.P.T., [facility] - 09/23/2024 12:20 PM CDT In-Patient Physical Therapy Discharge Summary Patient was seen by physical therapy for functional mobility training while hospitalized. He was progressing towards his stated therapy goals at discharge. Please see previous physical therapy notes for the patient's functional status. He will discharge to [facility] when medically appropriate. Hewill be discharged from physical therapy services at this time. Evonne Setwart P.T., Asia.P.TCeferino, OCS * Merlyn Jean P.T.A. [...] dementia who lives in Memory Care in [place], presenting to the ED with generalized weakness, [...] was discussed, Discussed patient's care with PT, vacuum worker/care management was contacted and patient's status [...] On Date: 09/23/24 Requires Inpatient Follow-Up: No IT ARCHITECTURE CONSULTANT Visit Trackin Time Spent with Patient Therapeutic [...] dementia who lives in Memory Care in [place], presenting to the ED with generalized weakness, lethargy and poor oral intake; staff reported little to no food or water intake for the past 48 hours. Prior Mobility/Functional Transfers Level of Ringold: Modified independent Gait Devices/Wheelchair Used: Front wheeled [...] care with PT Co-treatment with: Physical Therapy (IT ARCHITECTURE CONSULTANT) Upon arrival in room patient was found [...] Assistance with meal preparation, Assistance with financial services manager, Assistance with medication set up/administration, Assistance with [...] dementia who lives in Memory Care in [place] who is admitted for further management of [...] since December 2023. Following with Hematology in [place]. -continue with regular outpatient follow up with [...] and frontal temporal dementia who lives in [facility] in [place], presenting to the ED with generalized weakness, [...] activity, Therapeutic exercise, Neuromuscular re-education, Gait training IT ARCHITECTURE CONSULTANT Visit Trackin Time Spent with Patient Therapeutic [...] dementia who lives in Memory Care in [place], presenting to the ED with generalized weakness, lethargy and poor oral intake; staff reported little to no food or water intake for the past 48 hours. Prior Mobility/Functional Transfers Level of Ringold: Modified independent Gait Devices/Wheelchair Used: Front wheeled [...] Assistance with meal preparation, Assistance with financial services manager, Assistance with medication set up/administration, Assistance with [...] No concerns Medication list source: Outside facility [facility] Medication related information: MAR from [facility] (ph: [phone]). Atorvastatin was not on his MAR. Prior [...] dementia who lives in Memory Care in [place] who is admitted for further management of [...] since December 2023. Following with Hematology in [place]. Labs on admission showed serum calcium within [...] Of Unspecified Body Region 2016 Parkinsonism Unspecified ([facility]) ST Elevation Myocardial Infarction Of Unspecified Site [...] dementia who lives in Memory Care in [place], presenting to the ED with generalized weakness, lethargy and poor oral intake; staff reported little to no food or water intake for the past 48 hours. Per report from the ED provider in [place], staff at his nursing facility had noticed [...] of systems. In the emergency department in [place], he was vitally stable and on room [...] one liter of fluids and admitted to [facility] as admission could not be accommodated in , , or [place]. At the time of my evaluation, he [...] QI(U) Negative Bilirubin Negative pH 5.5 Specific Celeste 1.025 Urobilinogen 0.2 Microscopic Manual Collection Time: [...] completed via telephone with Nurse, Luz Marina ([phone]) at [facility] and son Pablo ([phone]). Previous Psychosocial Assessment: No Primary care clinic and provider: No care steam trap man to display They were advised of the [...] Family / Household: Patient is Spirituality / Pentecostal / Culture: Not assessed History: Not assessed [...] Never true Utilities: Not At Risk (09/20/2024) [facility] Utilities Threatened with loss of utilities: No Intimate Partner Violence: Not At Risk (09/20/2024) Humiliation, Afraid, Rape, and Kick questionnaire Fear of Current or Ex-Partner: No Emotionally Abused: No Physically Abused: No Sexually Abused: No ENVIRONMENTAL SUPPORTS Current Living Situation: Patient lives in a memory care facility, [facility] Anticipated modifications to the patient's [...] work introduced herself, her role as a professor of social work, and reason for consult via telephone to both Pablo, son, and Luz Marina, nurse at [facility]. This automobile service writer was able to gather base line functional [...] father back to the care facility in [place], when he is medically ready. Pablo stated that the best phone number to contact him is at: [phone]. A reconnect was sent to [facility]: Destination - Admitted Since 09/20/2024 Service Provider Request Status Services Address Phone Fax Patient Preferred [facility] Pending - Request Sent -- [facility] [phone] -- -- Destination - Episodes Includes Destination providers with selected services from the active episodes listed below IMPRESSION Unable to assess. INTERVENTIONS 1. Psychosocial assessment 2. Education regarding role of social work 3. Social work sent a re-connect to [facility] ([phone]). 4. Initial discussion of discharge planning PLAN 1. Patient's son, Pablo, can transport upon discharge ([phone]). 2. Social work will remain available for [...] dementia who lives in Memory Care in [place], presenting to the ED with generalized weakness, lethargy and poor oral intake; staff reported little to no food or water intake for the past 48 hours. Prior Function/Occupational Profile: Prior Mobility/Functional Transfers Level of Ringold: Modified independent Gait Devices/Wheelchair Used: Front wheeled [...] Living Type of Home: Assisted living facility ([place], [place]) Home Layout: One level Home Access: [...] AM-PAC Basic Mobility (V.2) Raw Score: 18 [facility] Basic Mobility (V.2) Standardized Score: 41.05 Interpretation: Based on scoring guidelines using the raw score value: Those going to home had an average score at or above 18 Those going to facility had an average score at or below 17 Clinicians answer the [facility] Inpatient Short Form based on observed [...] Myeloma Not Having Achieved Remission (HCC) Other Teletype Technician Current Drug Therapy Anemia Iron Deficiency Major [...] dementia who lives in Memory Care in [place], presenting to the ED with generalized weakness, lethargy and poor oral intake; staff reported little to no food or water intake for the past 48 hours. Prior Function/Occupational Profile: Prior Mobility/Functional Transfers Level of Ringold: Modified independent Gait Devices/Wheelchair Used: Front wheeled [...] No OBJECTIVE Pain Rating: no pain reported AM-[facility] Inpatient Short Form: Putting on and taking [...] at or below 17 Clinicians answer the [facility] Inpatient Short Form based on observed [...] Assistance with meal preparation, Assistance with financial services manager, Assistance with medication set up/administration, Assistance with housekeeping, Assistance with shopping, Assistance with showering/bathing, Assistance with toileting, Assistance with dressing Clinical Impression: Patient is a 84 y.o. who was admitted to the hospital with a diagnosis of: Failure Renal Acute (Acute Kidney Injury) [N17.9]. Prior to hospitalization patient was completing daily activities at [facility]. PLOF is unknown due to family [...] Myeloma Not Having Achieved Remission (HCC) Other Senior Living Current Drug Therapy Anemia Iron Deficiency Major [...] CDT Problem: Risk for Compromised Skin Integrity-Other Automobile Parts Assembler(s) Goal: Risk for Compromised Skin Integrity-Other Automobile Parts Assembler(s) Outcome: Adequate for Discharge Problem: PAIN - [...] Pt's son expected to transport back to [facility] at noon today. AVS to be sent along with son. They would also like provider notes from this hospital stay and any pertinent labs or results be faxed to [phone]. Pt denies c/o pain or unmet needs at this time. Problem: Risk for Compromised Skin Integrity-Other Automobile Parts Assembler(s) Goal: Risk for Compromised Skin Integrity-Other Automobile Parts Assembler(s) Outcome: Progressing Problem: PAIN - ADULT Goal: [...] reach Problem: Risk for Compromised Skin Integrity-Other Automobile Parts Assembler(s) Goal: Risk for Compromised Skin Integrity-Other Automobile Parts Assembler(s) Outcome: Progressing Problem: PAIN - ADULT Goal: [...] CDT Problem: Risk for Compromised Skin Integrity-Other Automobile Parts Assembler(s) Goal: Risk for Compromised Skin Integrity-Other Automobile Parts Assembler(s) Outcome: Progressing Problem: PAIN - ADULT Goal: [...] CDT Problem: Risk for Compromised Skin Integrity-Other Automobile Parts Assembler(s) Goal: Risk for Compromised Skin Integrity-Other Automobile Parts Assembler(s) Outcome: Progressing Problem: INFECTION - ADULT Goal: [...] Goals: Problem: Risk for Compromised Skin Integrity-Other Automobile Parts Assembler(s) Goal: Risk for Compromised Skin Integrity-Other Automobile Parts Assembler(s) Outcome: Progressing Problem: KNOWLEDGE DEFICIT Goal: Patient/family/caregiver [...] CDT Problem: Risk for Compromised Skin Integrity-Other Automobile Parts Assembler(s) Goal: Risk for Compromised Skin Integrity-Other Automobile Parts Assembler(s) Outcome: Progressing Problem: PAIN - ADULT Goal: [...] CDT Comprehensive Visit Department of Urology in [address] [phone] Kimberly Sheldon, ИРИНАS, P.A.-C., P.A. [address] [phone] Discharge Disposition: Home or Self Care 10/21/2024 7:45 AM CDT Clinical Communication Virtual Review in [address] [phone] 10/27/2024 11:00 AM CDT Appointment Department of Laboratory Medicine and Pathology, [facility], in [address] [phone] Mira Valencia APRN, C.N.P., D.N.P. [address] [place] [phone] 10/27/2024 1:00 PM CDT Comprehensive Visit Department of Palliative Care in [address] [phone] Faith Mahmood M.D., M.S. [address] [place] [phone] 10/27/2024 3:00 PM CDT Appointment Department of Radiology, [facility], in [place], [place] [address] [place] [address] Mira Valencia APRN, C.N.P., D.N.P. [address] [place] [address] 10/29/2024 2:00 PM CDT Telemedicine Department of Medical Genetics in [place], [place] [address] [place] [address] Óscar Gallegos M.D. [address] [place] [phone] Dora Hernandez M.S., [facility] [address] [place] [address] Scheduled Orders Name Type Priority Associated Diagnoses [...] 09/24/2024 5:36 AM CDT Julieth Cramer APRN C.N.PCeferino LAB BLOOD ADD-ON Fi nal Result [facility] [address] [place] [address], [facility] - [facility] [address] [place] [address] * (ABNORMAL) CBC with Differential, Blood (09/24/2024 [...] C.N.P. LAB BLOOD ADD-ON Fi nal Result [facility] [address] [place] [address], [facility] [place] - [facility] [address] [place] [address] * (ABNORMAL) Basic Metabolic Panel (09/23/2024 8:26 [...] 8:26 AM CDT 09/23/2024 9:05 AM CDT us Xu Perez APRNNRichy LAB BLOOD ADD-ON Fi nal Result [facility] [address] [place] [address], [facility] - [facility] [address] [place] [address] * (ABNORMAL) CBC with Differential, Blood (09/23/2024 [...] 8:26 AM CDT 09/23/2024 9:04 AM CDT us Julieth Cramer APRN CCeferinoNCeferinoP. LAB BLOOD ADD-ON Fi nal Result [facility] [address] [place] [address], [facility] [place] [facility] - [facility] [address] [place] [address] * (ABNORMAL) Basic Metabolic Panel (09/22/2024 5:12 [...] P.A. LAB BLOOD ADD- ON Final Result [facility] [address] [place] [address], [facility] - [facility] [address] [place] [address] * (ABNORMAL) CBC with Differential, Blood (09/22/2024 [...] P.A. LAB BLOOD ADD- ON Final Result [facility] [address] [place] [address], [facility] - [facility] [address] [place] [address] * (ABNORMAL) CBC with Differential, Blood (09/21/2024 5:12 AM CDT) Pathologist [facility] Hemoglobin 11.6(L) 13.2 - 16.6 g/dL 09/21/2024 [...] M.D. LAB BLOOD ADD-ON Final Resul t [facility] [address] [place] [address], [facility] [place] [facility] - [facility] [address] [place] [address] * (ABNORMAL) Basic Metabolic Panel (09/21/2024 5:12 [...] M.D. LAB BLOOD ADD-ON Final Resul t [facility] [address] [place] [address], [place] [facility] [address] [place] [address] documented in this encounter Visit Diagnoses Diagnosis [...] Daily before morning meal, First dose on Sun09/22/24 at 0700, Swallow whole. Do NOT crush, chew, or split tablet. Given 09/24/2024 5:20 AM CDT 40 mg Given 09/22/2024 6:12 AM CDT 40 mg potassium chloride ER tablet 40 mEq 40 mEq, oral, Once, On Sun09/21/24 at 0715, For 1 dose, Swallow whole. [...] g, oral, Daily PRN, constipation, Starting on 09/20/24 at 2121, Ordered sequence of administration: polyethylene glycol, then bisacodyl until BM achieved. Avoid mixing with starch-based thickened liquids. sennosides-docusate sodium 8.6-50 mg per tablet 1 tablet (Senokot-S) 1 tablet, oral, 2 times daily PRN, constipation, Starting on Sun09/23/24 at 0930, Do not give if patient has diarrhea. documented in this encounter Care Teams Tile Presser Relationship Specialty Start Date End Date None Reported, Pcp PCP - General Family Medicine 09/20/24 documented as of this encounter
--- OUTSIDE RECORDS SUMMARY | 2024-10-01 19:03 | XMS_ITS | Encounter Summary ---
Author Organization [facility] Address [address] [place] [address] Care Team Providers Care Food Processing Scientist Name Role Phone None Reported, Pcp Primary Care Provider Unavail able Reason for Visit * Reason Comments Urinary Catheter Change Patient's previo us catheter got toilet water in it and was pulled by the facility, patient has not urinated since Encounter Details Date Type Department Care Team (Late st Contact Info) Description 10/01/2024 7:03 PM CDT - 10/01/2024 7:56 PM CDT Emergency [facility] [address] [place] [phone] Yousuf Shaffer, P.A.-C. [address] [place] [phone] Retention Urinary (Primary Dx); Displacement Of Other Urinary Catheter Initial Discharge Disposition: Home or Self Care Social History Tobacco Use Types Packs/Day Years Used Date Smoking Tobacco: Never Passive Smoke Exposure: Never Smokeless Tobacco: Never Alcohol Use Standard Drinks/Week Comments Not Currently 14 (1 standard drink = 0.6 oz pure alcohol) Drank beer regularly until 2024. Not drinking much alcohol now. [facility] Utilities Answer Date Recorded In the past 12 months has [employer], gas, oil, or water [employer] threatened to shut off services in your [...] your living situation today? I have a [facility] place to live 09/20/2024 Sex and Gender Information Value Date Recorded Sex Assigned at Male 04/16/2023 6:35 PM WAITER/WAITRESS Legal Sex Male 5:48 PM WAITER/WAITRESS Gender Identity Male 04/16/2023 6:35 PM WAITER/WAITRESS Sexual Orientation Straight 04/16/2023 6: 35 PM WAITER/WAITRESS Occupation Industry Job Start Date Job End [...] Care Everywhere. * Indwelling Urinary Catheter Insertion (Cameroonian) * Indwelling Urinary Catheter Insertion Care After (Cameroonian) documented in this encounter Medications at Time [...] CDT Comprehensive Visit Department of Urology in [address] [phone] Kimberly Sheldon MPAS, P.A.-C., P.A. [address] [phone] Discharge Disposition: Home or Self Care 10/21/2024 7:45 AM CDT Clinical Communication Virtual Review in [place], [place] [address] [place] [phone] 10/27/2024 11:00 AM CDT Appointment Department of Laboratory Medicine and Pathology, [facility], in [place], [place] [address] [place] [phone] Mira Valencia APRN, C.NRichy, D.N.P. [address] [place] [phone] 10/27/2024 1:00 PM CDT Comprehensive Visit Department of Palliative Care in [place], [place] [address] [place] [phone] Faith Mahmood M.D., M.S. [address] [place] [phone] 10/27/2024 3:00 PM CDT Appointment Department of Radiology, [facility], in [place], [place] [address] [place] [phone] Mira Valencia APRN, C.N.Kaitlin., D.N.P. [address] [place] [phone] 10/29/2024 2:00 PM CDT Telemedicine Department of Medical Genetics in [place], [place] [address] [place] [phone] Óscar Gallegos M.D. [address] [place] [phone] Dora Hernandez M.SCeferino, [facility] [address] [place] [phone] documented as of this encounter Visit Diagnoses Diagnosis Retention Urinary- Primary Displacement Of Other Urinary Catheter Initial documented in this encounter Care Teams Food Processing Scientist Relationship Specialty Start Date End Date None Reported, Pcp PCP - General Family Medicine 09/20/24 documented as of this encounter
[2024-10-10 13:35] LABS: Appearance Urine Cloudy (Clear)
--- OUTSIDE RECORDS SUMMARY | 2024-10-11 00:08 | XMS_ITS | Clinical Summary ---
Author Organization [facility] Address [address] [place] [address] Care Team Providers Care Mold Release Worker Name Role Phone None Reported, Pcp Primary Care Provider Unavail able Source Comments Patient records contain information from all sites at [facility]. For routine questions regarding patient records, call [phone] during business hours, M-F 8:00 AM - 5:00 PM Central Time. Record requests for emergency care only can be directed to [phone] at any time.[facility] Allergies Active Allergy Reactions Criticality Noted Date Comments Itraconazole Rash High 03/28/2010 Rivaroxaban Other (see comments) High 01/27/2016 paralysis Sulfa (Sulfonamide Antibiotics) Rash High 08/29/2004 sars Medications * This document contains information received from the source organization and may not represent a complete record from that organization. amLODIPine (NORVASC) 5 mg tablet Take 1 tablet by mouth daily. 3 Active pantoprazole (PROTONIX) 40 mg EC tablet Take 1 tablet by mouth daily. 3 Active escitalopram (Lexapro) 10 mg tablet Take 10 mg by mouth daily. Active ketoconazole (Nizoral A-D) 1 % shampoo Apply 1 Application topically as needed for dandruff. Sunday and Active acetaminophen (TylenoL) 500 mg tablet Take 1,000 mg by mouth 2 (two) times a day. And twice daily as needed Active acyclovir (Zovirax) 400 mg tablet Take 400 mg by mouth 2 (two) times a day. Active bisacodyL (Dulcolax) 10 mg suppository Insert 10 mg into the rectum daily as needed for constipation. Active fluticasone propionate (Flonase) 50 mcg/actuation nasal spray Administer 2 sprays into each nostril daily as needed for rhinitis or allergies. Active alum-mag hydroxide-simet h (Karol-Lanta) 200-200-20 mg/5 mL suspension Take 30 mL by mouth every 6 (six) hours as needed (gastric distress). Active hydrocortisone 1 % cream Apply 1 Application topically daily as needed (itching). Active loperamide (Imodium A-D) 2 mg tablet Take 2 mg by mouth 4 (four) times a day as needed for diarrhea. Active magnesium hydroxide 400 mg/5 mL suspension Take 30 mL by mouth every other day as needed. Active atorvastatin (LIPITOR) 20 mg tablet Take 1 tablet by mouth daily. 4 025 Discontin ued(Stop Taking at Discharge ) cholecalciferol (VITAMIN D3) 50 mcg (2,000 Unit) capsule Take 1 capsule by mouth daily. 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 Date Type Department Care Team Description 10/01/2024 7:03 PM CDT - 10/01/2024 7:56 PM CDT Emergency [facility] [address] [place] [phone] Yousuf Shaffer, P.A.-C. Retention Urinary (Primary Dx); Displacement Of Other Urinary Catheter Initial Discharge Disposition: Home or Self Care 09/30/2024 Clinical Communication Department of Family Medicine, [facility], in [place], [place] [address] [place] [phone] None Reported, Pcp 09/20/2024 9:14 PM CDT - 09/24/2024 12:00 PM CDT Hospital Encounter [facility], [facility], Second Floor [address] [place] [phone] Iris Pizano P.A.-C., Julieth Kinsey APRN, C.N.P. Failure Renal Acute (Acute Kidney Injury) [N17.9] (Primary Dx); History Of Falling; Retention Urinary Discharge Disposition: Home or Self Care 09/20/2024 10:32 AM CDT - 09/20/2024 7:22 PM CDT Emergency [facility] [address] [place] [phone] Noel Barragan APRN, C.N.P., D.N.P. Dehydration (Primary Dx); Hypernatremia; Failure Renal Acute (Acute Kidney Injury); Acidosis Metabolic Anion Gap; Obstruction Bladder Neck Discharge Disposition: [facility] 08/14/2024 2:00 PM CDT Office Visit Division of Hematology in [place], [place] [address] [place] [phone] Mira Valencia APRN, C.N.P., D.N.P. 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 Multiple Myeloma Not Having Achieved Remission (HCC); Parkinsonism Unspecified (HCC); Change Mental Status; Aphasia Discharge Disposition: Home or Self Care 07/17/2024 10:53 AM CDT - 07/17/2024 11:19 AM CDT Hospital Encounter Department of Laboratory Medicine and Pathology, [place], [place] [address] [place] [phone] Jelly Roche APRN, C.N.P., M.S.N. Multiple Myeloma Not Having Achieved Remission (HCC); Parkinsonism Unspecified (HCC); Change Mental Status; Aphasia; Multiple Myeloma In Remission (HCC) Discharge Disposition: Home or Self Care from Last 3 Months Family History Medical History Relation Name Comments Stroke Father 1 Bertin Greco Stroke Father 2 Bertin Greco Stroke Father 3 Bertin Greco Relation Name Status Comments Father 1 Bertin Greco Alive Father 2 Bertin Greco Alive Father 3 Bertin Greco Alive Social History Tobacco Use Types Packs/Day Years Used Date Smoking Tobacco: Never Passive Smoke Exposure: Never Smokeless Tobacco: Never Tobacco Cessation:Counseling Given: Not Answered Alcohol Use Standard Drinks/Week Comments Not Currently 14 (1 standard drink = 0.6 oz pure alcohol) Drank beer regularly until 2024. Not drinking much alcohol now. [facility] Utilities Answer Date Recorded In the past 12 months has [employer], [employer], or water [employer] threatened to shut off services in your [...] your living situation today? 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 Not on file Not on file Last Filed Vital Signs Vital Sign Reading Time Taken Comments Blood Pressure 134/68 10/01/2024 7:45 PM CDT Pulse 86 10/01/2024 7:45 PM CDT Temperature 37.1 C (98.8 F) 10/01/2024 7:10 PM CDT Respiratory Rate 16 10/01/2024 7:10 PM CDT Oxygen Saturation 97% 10/01/2024 7:45 PM CDT Inhaled Oxygen Concentration - - Weight 64.3 kg (141 lb 12.1 oz) 10/01/2024 7:23 PM CDT Height 170.2 cm (5' 7) 09/20/2024 9:35 PM CDT Body Mass Index 22.2 09/20/2024 9:35 PM CDT Plan of Treatment Upcoming Encounters Date Type Department Care Team (Latest Contact Info) Description 10/20/2024 11:00 AM CDT Comprehensive Visit Department of Urology in [place], [place] [address] [place] [phone] Kimberly Sheldon, MPAS, P.A.-C., P.A. [address] [phone] Discharge Disposition: Home or Self Care 10/21/2024 7:45 AM CDT Clinical Communication Virtual Review in [place], [place] [address] [place] [phone] 10/27/2024 11:00 AM CDT Appointment Department of Laboratory Medicine and Pathology, [facility] in [place], [place] [address] [place] [phone] Mira Valencia APRN, C.N.P., D.N.P. [address] [place] [phone] 10/27/2024 1:00 PM CDT Comprehensive Visit Department of Palliative Care in [place], [place] [address] [place] [phone] Faith Mahmood M.D., M.S. [address] [place] [phone] 10/27/2024 3:00 PM CDT Appointment Department of Radiology, [facility] in [place], [place] [address] [place] [phone] Mira Valencia APRN, C.N.P., D.N.P. [address] [place] [phone] 10/29/2024 2:00 PM CDT Telemedicine Department of Medical Genetics in [place], [place] [address] [place] [phone] Óscar Gallegos M.D. [address] [place] [phone] Dora Hernandez M.S., [facility] [address] [place] [phone] Health Maintenance Due Date Last Done Comments IPV Vaccines (2 of 3 - Adult catch-up series) 03/20/2006 02/20/2006 RSV vaccine - (32-36 weeks) or 60+ years (1 - 1-dose 75+ series) 08/31/2014 COVID-19 Vaccine (7 - Pfizer risk season) 2024 12/24/2023, 01/16/2023, 02/06/2022, Additional history exists Influenza Vaccine (#1) 2024 , 12/05/2022, 12/20/2021, Additional history exists DTaP,Tdap,and Td Vaccines (3 - Td or Tdap) 04/25/2032 04/25/2022, 03/26/2012, 02/10/2003 Pneumococcal vaccine (50+ years) Completed 12/13/2016, 03/08/2015 Zoster Vaccines Completed 08/09/2018, 05/18, 03/23/2015 Fall Risk Screen (Annual) Completed 09/20/2024 HPV Vaccines Aged Out No longer eligi ble based on patient's age to complete this topic Procedures Procedure Name Priority Date/Time Associated Diagnosis Comments BASIC METABOLIC PANEL, S/P Routine 09/24/2024 5:13 AM CDT CBC WITH DIFFERENTIAL, B Routine 09/24/2024 5:13 AM CDT BASIC METABOLIC PANEL, S/P Routine 09/23/2024 8:26 AM CDT CBC WITH DIFFERENTIAL, B Routine 09/23/2024 8:26 AM CDT BASIC METABOLIC PANEL, S/P Routine 09/22/2024 5:12 AM CDT CBC WITH DIFFERENTIAL, B Routine 09/22/2024 5:12 AM CDT CBC WITH DIFFERENTIAL, B Routine 09/21/2024 5:12 AM CDT BASIC METABOLIC PANEL, S/P Routine 09/21/2024 5:[address] ABDOMEN PELVIS WITHOUT IV CONTRAST RAD [...] (CRP), S/P STAT 09/20/2024 11:35 AM CDT HC URINALYSIS AUTO W MICRO Routine 09/20/2024 11:11 AM CDT URINALYSIS WITH MICROSCOPIC IF INDICATED, U Routine 09/20/2024 11:11 AM CDT VBG (VENOUS BLOOD GAS), POCT, B STAT 09/20/2024 11:10 AM CDT MAGNESIUM, S STAT 09/20/2024 11:10 AM CDT LACTATE, B/P STAT 09/20/2024 11:10 AM CDT LIPASE, S/P STAT 09/20/2024 11:10 AM CDT COMPREHENSIVE METABOLIC PANEL, S/P STAT 09/20/2024 11:10 AM CDT CBC WITH DIFFERENTIAL, B STAT 09/20/2024 11:10 AM CDT THYROID-STIMULATING HORMONE-SENSITIVE (S-TSH) STAT 09/20/2024 11:09 AM CDT ECG STAT 09/20/2024 11:05 AM CDT DX CHEST PORTABLE 1 VIEW RAD - Semiurgent (Fast; most ED patients; some inpatients) 09/20/2024 11:05 AM CDT MR BRAIN DEMENTIA WITH QUANT ANALYSIS WITHOUT IV CONTRAST RAD - Routine (most inpatients and all outpatients) 07/17/2024 12:14 PM CDT Multiple Myeloma Not Having Achieved Remission (HCC) Parkinsonism Unspecified (HCC) Change Mental Status Aphasia IMMUNOGLOBULIN FREE LIGHT CHAINS, S Routine 07/17/2024 11:11 AM CDT Multiple Myeloma In Remission (HCC) QUANTITATIVE M-PROTEIN STUDY, S Routine 07/17/2024 11:11 AM CDT Multiple Myeloma In Remission (HCC) CBC NO CALL BACK, REFLEX T/S Routine 07/17/2024 11:11 AM CDT Multiple Myeloma In Remission (HCC) CALCIUM, TOT, S/P Routine 07/17/2024 11:11 AM CDT Multiple Myeloma In Remission (HCC) ASPARTATE AMINOTRANSFERASE (AST), S/P Routine 07/17/2024 11:11 AM CDT Multiple Myeloma In Remission (HCC) ALKALINE PHOSPHATASE, S/P Routine 07/17/2024 11:11 AM CDT Multiple Myeloma In Remission (HCC) ALBUMIN, S/P Routine 07/17/2024 11:11 AM CDT Multiple Myeloma In Remission (HCC) CREATININE WITH EGFR, S/P Routine 07/17/2024 11:11 AM CDT Multiple Myeloma Not Having Achieved Remission (HCC) Parkinsonism Unspecified (HCC) Change Mental Status Aphasia FOLATE, S Routine 07/17/2024 11:11 AM CDT Multiple Myeloma Not Having Achieved Remission (HCC) Parkinsonism Unspecified (HCC) Change Mental Status Aphasia VITAMIN B12 ASSAY, S Routine 07/17/2024 11:11 AM CDT Multiple Myeloma Not Having Achieved Remission (HCC) Parkinsonism Unspecified (HCC) Change Mental Status Aphasia THYROID FUNCTION CASCADE, S Routine 07/17/2024 11:11 AM CDT Multiple Myeloma Not Having Achieved Remission (HCC) Parkinsonism Unspecified (HCC) Change Mental Status Aphasia POTASSIUM, S/P Routine 07/17/2024 11:11 AM CDT Multiple Myeloma Not Having Achieved Remission (HCC) Parkinsonism Unspecified (HCC) Change Mental Status Aphasia SODIUM, S/P Routine 07/17/2024 11:11 AM CDT Multiple Myeloma Not Having Achieved Remission (HCC) Parkinsonism Unspecified (HCC) Change Mental Status Aphasia from Last 3 Months Results * (ABNORMAL) CBC with Differential, Blood (09/24/2024 5:13 AM CDT) Only the most recent of5 resultswithin the time period is included. Hemoglobin 12.1(L) 13.2 - 16.6 g/dL 09/24/2024 [...] CDT 09/24/2024 5:36 AM CDT Julieth Cramer APRN, C.N.P. LAB BLOOD ADD-ON Fi nal Result [facility] [address] [place] [address], [facility] [address] [place] [address] * (ABNORMAL) Basic Metabolic Panel (09/24/2024 5:13 AM CDT) Only the most recent of4 resultswithin the time period is included. Potassium, P 4.1 3.6 - 5.2 mmol/L [...] CDT 09/24/2024 5:36 AM CDT Julieth Cramer APRN, C.N.P. LAB BLOOD ADD-ON Fi nal Result [facility] [address] [place] [address], [facility] [address] [place] [address] * CT Abdomen Pelvis without IV Contrast [...] 09/20/2024 12:00 PM CDT Noel Barragan APRN, C.N.P., D.N.P. LAB MICROBIOLOGY - GENERAL ORDERABLES Final Result [facility] [address] [address], [place] [address] * Bacteria / Josey Culture, Blood #2 (09/20/2024 11:54 AM CDT) Only the most recent of2 resultswithin the time period is included. Bacteria/Hilaria da Culture, Blood No growth after 5 day/s of incubation. 09/25/2024 12:02 PM CDT [facility] Blood (Blood, Peripheral Draw) 09/20/2024 11:54 AM CDT 09/20/2024 11:56 AM CDT Comment:Specimen Source Site : Blood Noel Barragan APRN, C.N.P., D.N.P. LAB MICROBIOLOGY - GENERAL ORDERABLES Final Result Performing Organization Address City/[facility]/ZIP Co de Phone Number [address] [address], [address] [address] * Glucose, POCT (09/20/2024 11:37 AM CDT) [facility] Glucose, POCT, B 127 70 - 140 mg/dL 09/20/2024 11:37 AM CDT [facility] Blood 09/20/2024 11:3 7 AM CDT 09/20/2024 11:47 AM CDT us Generic [facility] POCT ORDERABLES-MANUAL Final Result [id number], [place] [address] * (ABNORMAL) CRP (C-Reactive Protein) (09/20/2024 11:35 AM CDT) C-Reactive Protein (CRP), P 18.8(H) <5.0 mg/L 09/20/2024 11:47 AM CDT [facility] Blood (Blood, Venous) 09/20/2024 11:35 AM CDT 09/20/2024 11:35 AM CDT us Noel Barragan APRN C.N.P., D.N.P. LAB BLOOD AD D-ON Final Result [facility] [address] [place] [address], [facility] [place] [address] * (ABNORMAL) Urinalysis with Microscopic if Indicated: [...] 8.0 09/20/2024 12:03 PM CDT [facility] Specific [place] 1.025 1.001 - 1.035 09/20/2024 12:03 PM CDT [facility] Urobilinogen 0.2 0.2 - 1.0 mg/dL 09/20/2024 12:03 PM CDT [facility] Urine (Urine, Midstream) 09/20/2024 11:11 AM CDT 09/20/2024 12:01 PM CDT us Noel Barragan APRN, Jyothi.N.P., D.N.P. LAB URINE OR DERABLES Final Result Performing Organization Address [facility] [place] [address], [place] [address] * (ABNORMAL) Microscopic Manual (09/20/2024 11:11 AM [...] 12:01 PM CDT us Noel Barragan APRN, Jyothi.N.P., D.N.P. LAB URINE OR DERABLES Final Result Performing Organization Address City/[facility]/[place] [address], [place] [address] * Blood Gas, Venous, POCT, Blood (09/20/2024 [...] POCT ORD ERABLES - DEVICE Final Result Performing Organization Address [facility]/[place] [address], [place] [address] * (ABNORMAL) Magnesium (09/20/2024 11:10 AM CDT) Magnesium, P 2.7(H) 1.7 - 2.3 mg/dL 09/20/2024 11:41 AM CDT [facility] Blood (Blood, Venous) 09/20/2024 11:10 AM CDT 09/20/2024 11:18 AM CDT us Noel Barragan APRN, C.N.P., D.N.P. LAB BLOOD AD D-ON Final Result [address] [place] [address], [address] [address] * Lipase (09/20/2024 11:10 AM CDT) Lipase, P 38 13 - 60 U/L 09/20/2024 11:41 AM CDT [facility] Blood (Blood, Venous) 09/20/2024 11:10 AM CDT 09/20/2024 11:18 AM CDT Noel Barragan APRN, C.N.P., D.N.P. LAB BLOOD AD D-ON Final Result [address] [address], [address] [address] * Lactate (09/20/2024 11:10 AM CDT) Lactate, P 1.2 0.5 - 2.2 mmol/L 09/20/2024 11:37 AM CDT [facility] Blood (Blood, Venous) 09/20/2024 11:10 AM CDT 09/20/2024 11:18 AM CDT us Noel Barragan APRN, C.N.P., D.N.P. LAB BLOOD NO N ADD-ON Final Result [address] [address], [address] [address] * (ABNORMAL) Comprehensive Metabolic Panel (09/20/2024 11:10 [...] AD D-ON Final Result Performing Organization Address City/[facility]/ZIP Co de Phone Number [address] [address], [address] [address] * S-TSH (Thyroid-Stimulating Hormone - Sensitive) (09/20/2024 11:09 AM CDT) Pathologist [facility] TSH, Sensitive 0.7 0.3 - 4.2 mIU/L 09/20/2024 11:51 AM CDT [facility] Blood (Blood, Venous) 09/20/2024 11:09 AM CDT 09/20/2024 11:18 AM CDT us Jyothi Rice APRN.N.P., D.N.P. LAB BLOOD AD D-ON Final Result Performing Organization Address City/[facility]/ZIP Co de Phone Number [address] [address], [place] [address] * ECG 12 Lead (09/20/2024 11:05 AM CDT) Ventricular Rate ECG/Min 93 BPM MUSE IA Interval 138 ms MUSE QRSD Interval 78 ms MUSE QT Interval 356 ms MUSE QTC Interval 442 ms MUSE P [place] 64 degrees MUSE R [place] 61 degrees MUSE T Wave [place] 46 degrees MUSE 09/20/2024 11:0 5 AM [...] IMG DIAGNOST IC IMAGING PROCEDURES Final Result * MR Brain Dementia with Quant Analysis without IV Contrast (07/17/2024 12:14 PM CDT) Anatomical Region Laterality Modality Head, Brain, Neuroradiology RST LOS, Neuroradiology ARZ LOS, Neuroradiology FLA LOS N/A Magnetic Resonance Impressions 07/17/2024 12:52 PM CDT 1. Moderate to advanced white matter ischemic changes. 2. Asymmetric temporal lobe atrophy, worse on the left. Narrative 07/17/2024 12:52 PM CDT EXAM: MR BRAIN DEMENTIA WITH QUANT ANALYSIS WITHOUT IV CONTRAST FINDINGS: MRI brain without gadolinium (dementia protocol) 07/17/2024. Indication worsening aphasia, parkinsonism. Multiple myeloma. No available comparison. There is moderate diffuse parenchymal volume loss. There is peripheral and confluent periventricular white matter signal abnormality suggesting moderate to advanced leukoaraiosis. No evident cortical infarction. Mild pontine ischemic changes. The vertebral, basilar, and internal carotid arteries appear patent. No abnormal diffusion restriction. 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 There is subjective asymmetric hippocampal atrophy, worse on the left. The surrounding left superior, middle, and inferior temporal gyri appear asymmetrically atrophic. Image post-processing for quantitative segmental volume reporting and assessment was performed on an independent computer seismic prospecting observer helper using [employer] software. The clinical indication for performing the post-processing was worsening aphasia. Review of the quality measurement specialist images demonstrates appropriate segmentation of the hippocampi. Left hippocampal volume: 2.45 Right hippocampal volume: 2.78 Hippocampal asymmetry index: -12.67 Combined hippocampal volume: 5.22 Combined hippocampal volume age-adjusted percentile: 7.00 Combined inferior lateral ventricles (temporal horns) volume: 6.47 Combined inferior lateral ventricles (temporal horns) age-adjusted percentile: 98.00 Quantitative analysis suggests statistically significant volume loss of the left temporal lobe generally, the middle and inferior left temporal gyri, the left fusiform gyrus, the right entorhinal cortex, and the left temporal pole and hippocampus. Procedure Note Noel Velasquez M.D. - 07/17/2024 EXAM: MR BRAIN DEMENTIA WITH QUANT ANALYSIS WITHOUT IV CONTRAST FINDINGS: MRI brain without gadolinium (dementia protocol) 07/17/2024.Indication worsening aphasia, parkinsonism. Multiple myeloma. No availablecomparison. There is moderate diffuse parenchymal volume loss. There is peripheral andconfluent periventricular white matter signal abnormality suggestingmoderate to advanced leukoaraiosis. No evident cortical infarction. Mildpontine ischemic changes. The vertebral, basilar, and internal carotid arteries appear patent. Noabnormal diffusion restriction. Probable central pontine capillarytelangiectasia. There is subjective asymmetric hippocampal atrophy, worseon the left. The surrounding left superior, middle, and inferior temporal gyri appear asymmetrically atrophic. Image post-processing for quantitative segmental volume reporting andassessment was performed on an independent computer seismic prospecting observer helper usingShelfXQuant software. The clinical indication for performing thepost-processing was worsening aphasia. Review of the quality measurement specialist images demonstrates appropriate segmentation of thehippocampi. Left hippocampal volume: 2.45 Right hippocampal volume: 2.78 Hippocampal asymmetry index: -12.67 Combined hippocampal volume: 5.22 Combined hippocampal volume age-adjusted percentile: 7.00 Combined inferior lateral ventricles (temporal horns) volume: 6.47 Combined inferior lateral ventricles (temporal horns) age-adjustedpercentile: 98.00 Quantitative analysis suggests statistically significant volume loss ofthe left temporal lobe generally, the middle and inferior left temporalgyri, the left fusiform gyrus, the right entorhinal cortex, and the lefttemporal pole and hippocampus. IMPRESSION: 1. Moderate to advanced white matter ischemic changes. 2. Asymmetric temporal lobe atrophy, worse on the left. us Jelly Roche APRN C.N.P., M.S.N. IMG MRI P ROCEDURES Final Result * (ABNORMAL) Quantitative M-protein Study (07/17/2024 11:11 AM CDT) Immunoglobulin A (IgA), S 92 61 - 356 mg/dL 07/17/2024 5:03 PM CDT [facility] Immunoglobulin M (IgM), S 57 37 - 286 mg/dL 07/17/2024 5:05 PM CDT [facility] Immunoglobulin G (IgG), S 676(L) 767 - 1590 mg/dL 07/17/2024 5:04 PM CDT [facility] Therapeutic Antibody Administered? Unspecified 07/17/2024 2:44 PM CDT [facility] M-protein AK 0.013(H) g/dL 07/18/2024 11:00 AM CDT [facility] Flag, M-protein Isotype Positive(A) Negative 07/18/2024 11:00 AM CDT [facility] QMPTS Interpretation IgA kappa 0.013 g/dL 07/18/2024 11:00 AM CDT [facility] Comment: ----ADDITIONAL INFORMATION---- The submitted sample was assayed by five separate immunopurifications for IgG, IgA, IgM, kappa and lambda. The result reflects the findings of either no monoclonal protein detected or those monoclonal immunoglobulins that were detected. This test was developed and its performance characteristics determined by [facility] in a manner consistent with CLIA requirements. This test has not been cleared or approved by the U.S. Food and Drug Administration. Blood (Blood, Venous) 07/17/2024 11:11 AM CDT 07/17/2024 2:01 PM CDT Narrative [facility] - 07/18/2024 11:00 AM CDT Specimen Information: Specimen ID: [id number] Specimen Type: Blood Specimen Collection Start Date: 07/17/2024 11:11 AM Specimen Received Date: 07/17/2024 2:01 PM Specimen ID: [id number] Specimen Type: Blood Specimen Collection Start Date: 07/17/2024 11:11 AM Specimen Received Date: 07/17/2024 2:44 PM Jelly Roche APRN C.N.P., M.S.N. LAB BLOOD ADD-ON Final Result [facility] [address] [place] [address] [place] [address] [place] [address] [place] [address] [place] [address] * (ABNORMAL) CBC no call back, reflex T/S HGB <8 (07/17/2024 11:11 AM CDT) [facility] Hemoglobin 14.2 13.2 - 16.6 g/dL 07/17/2024 11:50 AM CDT DTL Hematocrit 42.9 38.3 - 48.6 % 07/17/2024 11:50 AM CDT DTL Erythrocytes 4.52 4.35 - 5.65 x10(12)/L 07/17/2024 11:50 AM CDT DTL MCV 94.9 78.2 - 97.9 fL 07/17/2024 11:50 AM CDT DTL RBC Distrib Width 12.2 11.8 - 14.5 % 07/17/2024 11:50 AM CDT DTL Platelet Count 213 135 - 317 x10(9)/L 07/17/2024 11:50 AM CDT DTL Leukocytes 6.4 3.4 - 9.6 x10(9)/L 07/17/2024 11:50 AM CDT DTL Neutrophils 4.88 1.56 - 6.45 x10(9)/L 07/17/2024 11:50 AM CDT DHPM Lymphocytes 0.89(L) 0.95 - 3.07 x10(9)/L 07/17/2024 11:50 AM CDT DTL Monocytes 0.53 0.26 - 0.81 x10(9)/L 07/17/2024 11:50 AM CDT DTL Eosinophils 0.10 0.03 - 0.48 x10(9)/L 07/17/2024 11:50 AM CDT DTL Basophils 0.03 0.01 - 0.08 x10(9)/L 07/17/2024 11:50 AM CDT DTL Blood (Blood, Venous) 07/17/2024 11:11 AM CDT 07/17/2024 11:26 AM CDT us Jelly Roche APRN, C.N.P., M.S.N. LAB BLOOD NON ADD-ON Final Result [facility] [address] [place] [address], [facility]note 3[facility] [address] [place] [address] * Thyroid Function Davis (07/17/2024 11:11 AM CDT) [facility] Signature TSH, Sensitive 0.8 0.3 - 4.2 mIU/L 07/17/2024 12:13 PM CDT DTL Blood (Blood, Venous) 07/17/2024 11:11 AM CDT 07/17/2024 11:45 AM CDT us Jelly Roche APRN, C.N.P., M.S.N. LAB BLOOD ADD-ON Final Result [facility] [address] [place] [address], [facility] [address] [place] [address] * Immunoglobulin Free Light Chains (07/17/2024 11:11 AM CDT) [facility] [place] Free Light Chain, S 1.31 0.3300 - 1.94 mg/dL 07/17/2024 3:37 PM CDT SDS Lambda Free Light Chain, S 2.01 0.5700 - 2.63 mg/dL 07/17/2024 2:48 PM CDT [facility] [place]/Lambda FLC Ratio 0.6517 0.2600 - 1.65 07/17/2024 3:37 PM CDT [facility] Blood (Blood, Venous) 07/17/2024 11:11 AM CDT 07/17/2024 2:01 PM CDT Jelly Roche APRN, Jyothi.N.P., M.S.N. LAB BLOOD ADD-ON Final Result [facility] [address] [place] [address] [facility] [address] [place] [address] * AST (Aspartate Aminotransferase) (07/17/2024 11:11 AM CDT) [facility] Aspartate Aminotransferase (AST), S 17 8 - 48 U/L 07/17/2024 12:13 PM CDT DT Blood (Blood, Venous) 07/17/2024 11:11 AM CDT 07/17/2024 11:45 AM CDT Jelly Roche APRN, C.N.P., M.S.N. LAB BLOOD ADD-ON Final Result [facility] [address] [place] [address], [facility] [address] [place] [address] * Sodium (07/17/2024 11:11 AM CDT) Sodium, S 143 135 - 145 mmol/L 07/17/2024 12:13 PM CDT DTL Blood (Blood, Venous) 07/17/2024 11:11 AM CDT 07/17/2024 11:45 AM CDT Jyothi Evans APRN.N.P., M.S.N. LAB BLOOD ADD-ON Final Result [facility] [address] [place] [address], [facility] [address] [place] [address] * Potassium (07/17/2024 11:11 AM CDT) Potassium, S 3.6 3.6 - 5.2 mmol/L 07/17/2024 12:13 PM CDT DTL Blood (Blood, Venous) 07/17/2024 11:11 AM CDT 07/17/2024 11:45 AM CDT Jelly Roche APRN, C.N.P., M.S.N. LAB BLOOD ADD-ON Final Result Performing Organization Address [facility] Co de Phone Number [facility] [address] [place] [address], [facility] [address] [place] [address] * Alkaline Phosphatase (07/17/2024 11:11 AM CDT) Alkaline Phosphatase, S 70 40 - 129 U/L 07/17/2024 12:13 PM CDT DTL Blood (Blood, Venous) 07/17/2024 11:11 AM CDT 07/17/2024 11:45 AM CDT Jelly Roche APRN, Jyothi.N.P., M.S.N. LAB BLOOD ADD-ON Final Result [facility] [address] [place], [place] [address][note 3[facility] [address] [place] [address] * Folate (07/17/2024 11:11 AM CDT) Pathologist [facility] Folate, S 15.2 >=4.0 mcg/L 07/17/2024 12:27 PM CDT DT Blood (Blood, Venous) 07/17/2024 11:11 AM CDT 07/17/2024 11:45 AM CDT Jyothi Evans APRN.N.Kaitlin., M.S.N. LAB BLOOD ADD-ON Final Result Performing Organization Address [facility] Co de Phone Number [facility] [address] [place] [address], [facility]note 3] [address] [place] [address] * Vitamin B12 Assay (07/17/2024 11:11 AM CDT) [facility] Vitamin B12 Assay, S 428 180 - 914 ng/L 07/17/2024 12:30 PM CDT DTL Comment: ----ADDITIONAL INFORMATION---- In patients being evaluated for vitamin B12 deficiency who have intrinsic factor blocking antibodies (IFBA), false elevations of B12 may occur due to IFBA interference thus potentially obscuring a physiological deficiency of B12. If observed B12 concentrations are discordant with clinical presentation, measurement of methylmalonic acid (MMA) should be considered. Blood (Blood, Venous) 07/17/2024 11:11 AM CDT 07/17/2024 11:45 AM CDT Jelly Roche APRN, Jyothi.N.P., M.S.N. LAB BLOOD ADD-ON Final Result Performing Organization Address City/[facility] Co de Phone Number [facility] [address] [place] [address], [facility]note 3] [address] [place] [address] * (ABNORMAL) Creatinine with Estimated GFR (07/17/2024 11:11 AM CDT) Creatinine 1.40(H) 0.74 - 1.35 mg/dL 07/17/2024 12:13 PM CDT DTL Estimated GFR (eGFR) 50(L) >=60 mL/min/BSA 07/17/2024 12:13 PM CDT DTL Comment: Estimated GFR calculated using the 2020 CKD_EPI creatinine equation. Blood (Blood, Venous) 07/17/2024 11:11 AM CDT 07/17/2024 11:45 AM CDT Jelly Roche APRN, Jyothi.N.P., M.S.N. LAB BLOOD ADD-ON Final Result Performing Organization Address City/[facility]/ZIP Co de Phone Number [facility] [address] [facility]note 3[facility] [address] [place] [address] * Calcium, Total (07/17/2024 11:11 AM CDT) Calcium, Total, S 9.5 8.8 - 10.2 mg/dL 07/17/2024 12:13 PM CDT DTL Blood (Blood, Venous) 07/17/2024 11:11 AM CDT 07/17/2024 11:45 AM CDT Jyothi Evans APRN.N.P., M.S.N. LAB BLOOD ADD-ON Final Result [facility] [address] [facility]note 3[facility] [address] [place] [address] * Albumin (07/17/2024 11:11 AM CDT) Albumin, S 4.9 3.5 - 5.0 g/dL 07/17/2024 12:13 PM CDT DTL Blood (Blood, Venous) 07/17/2024 11:11 AM CDT 07/17/2024 11:45 AM CDT Jelly Roche APRN C.N.P., M.S.N. LAB BLOOD ADD-ON Final Result [facility] [address] [place] [address], [facility] DTL [facility] [address] [place] [address] from Last 3 Months Insurance MEDICARE [facility] Advance Directives For more information, please contact: [phone] * DNR/DNI (Latest Code Status on File) Date Activated Date Inactivated Comments 09/21/2024 7:13 AM 09/24/2024 2:10 PM Question Answer Comments DNR/DNI (Do Not Resuscitate/ Do Not Intubate): Discussed- Alternative/surrogate decision maker Care Teams Mold Release Worker Relationship Specialty Start Date End Date None Reported, Pcp PCP - General Family Medicine 09/20/24
--- OUTSIDE RECORDS SUMMARY | 2024-10-11 00:09 | XMS_ITS ---
Author Organization [facility] Address [address] [place] [address] Care Team Providers Care Spinner Tender Name Role Phone None Reported, Pcp Primary Care Provider Unavail able Active Problems * This document contains information received from the source organization and may not represent a complete record from that organization. 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 Past Treatment and Therapy Plans Hematology / Oncology Treatment 1 Plan Name Start Date Discontinue Date Treatment Medications Discontinue Reason Plan Provider Cycles Bortezomib Every Other Week 4 02/12/2024 bortezomib (Velcade) Therapy Complete Kirill Grayson M.D. 9 of 12 cycles started
--- OUTSIDE RECORDS SUMMARY | 2024-10-11 00:09 | XMS_ITS | Encounter Summary ---
Author Organization [facility] Address [address] [place] [address] Care Team Providers Care Pin Machine Tender Name Role Phone None Reported, Pcp Primary Care Provider Unavail able Encounter Details Date Type Department Care Team (Late st Contact Info) Description 09/30/2024 Clinical Communication Department of Family Medicine, [facility], in [place], [place] [address] [place] [phone] None Reported, Pcp Social History Tobacco Use Types Packs/Day Years Used Date Smoking Tobacco: Never Passive Smoke Exposure: Never Smokeless Tobacco: Never Alcohol Use Standard Drinks/Week Comments Not Currently 14 (1 standard drink = 0.6 oz pure alcohol) Drank beer regularly until 2024. Not drinking much alcohol now. 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 [address] [phone] Discharge Disposition: Home or Self Care 10/21/2024 7:45 AM CDT Clinical Communication Virtual Review in [place], [place] [address] [place] [phone] 10/27/2024 11:00 AM CDT Appointment Department of Laboratory Medicine and Pathology, [facility], in [place], [place] [address] [place] [phone] Mira Valencia APRN, C.NRichy, D.N.P. [address] [place] [phone] 10/27/2024 1:00 PM CDT Comprehensive Visit Department of Palliative Care in [place], [place] [address] [place] [phone] Faith Mahmood M.D., M.S. [address] [place] [phone] 10/27/2024 3:00 PM CDT Appointment Department of Radiology, [facility], in [place], [place] [address] [place] [phone] Mira Valencia APRN, C.NFranky., D.N.P. [address] [place] [phone] 10/29/2024 2:00 PM CDT Telemedicine Department of Medical Genetics in [place], [place] [address] [place] [phone] Óscar Gallegos M.D. [address] [place] [phone] Dora Hernandez M.S., [facility] [address] [place] [phone] documented as of this encounter Visit Diagnoses Not on filedocumented in this encounter Care Teams Pin Machine Tender Relationship Specialty Start Date End Date None Reported, Pcp PCP - General Family Medicine 09/20/24 documented as of this encounter
--- OUTSIDE RECORDS SUMMARY | 2024-10-11 00:11 | XMS_ITS ---
Author Organization [facility] Address [address] [place] [address] Care Team Providers Care Fashion Director Party Plan Sales Name Role Phone None Reported, Pcp Primary Care Provider Unavail able Genomics Program Status:Identified (Enrolling) Start date:09/22/2024 Continued Care and Services Coordination
== END 2024-10-10 13:05 | disposition home or self-care (01) ==
LOC: NPINS 13:04
PROVIDERS: PCP Internal Medicine Nephrology; Visit Provider Nurse Practitioner Gerontology
DX: R33.9 Retention of urine, unspecified (principal)
CPT/HCPCS: 81001; 81003; 87086

== ENCOUNTER 2024-10-16 18:55 | Outpatient (CLI) | payer MEDICARE, OTHER, SELFPAY | END 2024-10-16 18:56 | disposition home or self-care (01) | PROVIDERS: PCP Internal Medicine Nephrology; Visit Provider Family Medicine | DX: R33.9 Retention of urine, unspecified (principal) | CPT/HCPCS: A0425; A0429 ==

== ENCOUNTER 2024-10-16 19:03 | Emergency (ER) | payer MEDICARE, OTHER, SELFPAY ==
--- OUTSIDE RECORDS SUMMARY | 2024-09-20 10:32 | XMS_ITS | Encounter Summary ---
Author Organization [facility] Address [address] [place] [address] Care Team Providers Care Facility Supervisor Name Role Phone None Reported, Pcp Primary Care Provider Unavail able Reason for Visit * Reason Comments Fatigue Encounter Details Date Type Department Care Team (Late st Contact Info) Description 09/20/2024 10:32 AM CDT - 09/20/2024 7:22 PM CDT Emergency [facility] [address] [place] [phone] Noel Barragan, FARHAT, C.N.P., D.N.P. [address] [place] [phone] Dehydration (Primary Dx); Hypernatremia; Failure Renal [...] until 2024. Not drinking much alcohol now. [facility] Utilities Answer Date Recorded In the past 12 months has [employer], gas, oil, or water [employer] threatened to shut off services in your [...] your living situation today? 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 Patient has not been drinking either. Patient is DNR/DNI and this was confirmed with the son was in the room and his medical/power of vocational adviser. 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 needed/used: no REVIEW OF SYSTEMS Constitutional: Positive [...] QI(U) Negative Bilirubin Negative pH 5.5 Specific [place] 1.025 Urobilinogen 0.2 C-REACTIVE PROTEIN (CRP), S/P [...] CULTURE, BLOOD Narrative: Specimen Information: Specimen ID: [id number] Specimen Source: Blood, Peripheral Draw Specimen Comment: Specimen Source Site: Blood Specimen Collection Start Date: 09/20/2024 11:42 AM Specimen Received Date: 09/20/2024 11:56 AM Specimen ID: [id number] Specimen Source: Blood, Peripheral Draw Specimen Comment: Specimen Source Site: Blood Specimen Collection Start Date: 09/20/2024 11:42 AM Specimen Received Date: 09/20/2024 11:56 AM Specimen ID: [id number] Specimen Source: Blood, Peripheral Draw Specimen Comment: Specimen Source Site: Blood Specimen Collection Start Date: 09/20/2024 11:42 AM Specimen Received Date: 09/20/2024 11:56 AM BACTERIA / JOSEY CULTURE, BLOOD Narrative: Specimen Information: Specimen ID: [id number] Specimen Source: Blood, Peripheral Draw Specimen Comment: Specimen Source Site: Blood Specimen Collection Start Date: 09/20/2024 11:54 AM Specimen Received Date: 09/20/2024 11:56 AM Specimen ID: [id number] Specimen Source: Blood, Peripheral Draw Specimen Comment: Specimen Source Site: Blood Specimen Collection Start Date: 09/20/2024 11:54 AM Specimen Received Date: 09/20/2024 11:56 AM Specimen ID: [id number] Specimen Source: Blood, Peripheral Draw Specimen Comment: [...] previous ECGs available Reviewed by JASVIR Alva Radiology CT Abdomen Pelvis without IV Contrast [...] elevated 1152 TSH, Sensitive: 0.7 WNL 1153 [place] has no beds available [address] [...] reconfirm this with them. They would request [facility] as this is closer for them, otherwise [facility] if that is possible. 1314 Riley cath and was left in place after CT resulted. 1400 UOP with riley catheter 1315 Called atc and talked to Pia MANCINI about getting a bed. 1315 Admit likely initiated, will switch to LR and continue rehydration at 200 an hour 1423 Son updated now. Okay with [facility] if we need to admit there 1436 [facility] declined due to staffing, they will try [facility]. 1604 When rechecked on patient patient now is much more alert, his son says he is way more alert than when he came in. He started to pick it his IV a little bit, nursing as to wrap this up. Still waiting for the MO D in [place] to call back. Family was updated on [...] 1731 I did hear back from the learning and development administrator on-call. He has no other suggestions at this time, however it looks like [place] might have a bed. We are going to target there. 1747 Nursing as accepted the patient in [place], waiting to connect to the provider. 1756 Discussed the case with Carmencita YOUNG who accepts the patient in [place]. 1857 Care transferred to [facility] Final Diagnoses: as of 09/20/24 1948 Hypernatremia Failure Renal Acute (Acute Kidney Injury) Acidosis Metabolic Anion Gap Dehydration Obstruction Bladder Neck INTERVENTIONS Medications NaCl 0.9 % bolus 1,000 mL (0 mL intravenous Stopped 09/20/24 1335) MEDICAL DECISION MAKING Assessment and Plan Patient with a past medical history of multiple myeloma, frontal temporal dementia, Parkinson's, who resides in memory [facility] in [place] presents to the emergency department today being extremely lethargic, falls asleep easily, in his not eaten in the 48 hours. Patient has not been drinking either. Patient is DNR/DNI and this was confirmed with the son was in the room and his medical/power of vocational adviser. The son states he visit in his [...] infection NOS, electrolyte imbalance, dehydration, anemia, ACS, MO, PE, hypoxia, COPD, CHF, ICH, stroke, neuropathy, [...] Health system is on divert, will target [place] now. Did update the son. Patient now seems much more alert than when he came in. I feel the fluids are helping. He has had a L of fluid plus now the Ringer's lactate at 200 cc an hour. We will decrease this after another L is in. I did discuss the case with Carmencita Pizano PA-C in [place], she accepts thepatient in transfer. Unfortunately [facility] as unable to take the patient, [place] was called they were unable to take the patient, we have called johnson baker in [place] for BLS transport. Son is aware of the need to transport the patient back home and he agrees to do this. He is also awareof the need to admit in [place] as this is the only bed available in the health system. I discussed the case with Carmencita YOUNG in [place] hospitalist who accepts the patient. We are [...] meantime patient was signed out to the public health internship. Please see their note for any additional [...] [E86.0] Dehydration [N32.0] Obstruction Bladder Neck DISPOSITION [facility] med surg. DISCHARGE/TRANSFER VITAL SIGNS Vitals: 09/20/24 1900 BP: 138/76 Pulse: 86 Resp: 18 Temp: 36.4 ??C SpO2: 100% Noel Barragan, DNP, TOOL SALVAGE WORKER, POWER ELECTRONICS RESEARCH ENGINEER-C, AGACNP-BC, ENP-C Emergency Medicine [1] Past Medical [...] Myeloma Not Having Achieved Remission (HCC) Other Nursing Home Current Drug Therapy Anemia Iron Deficiency Major [...] CDT Comprehensive Visit Department of Urology in [address] [phone] Kimberly Sheldon, THOR, P.A.-C., P.A. [address] [phone] Discharge Disposition: Home or Self Care 10/21/2024 7:45 AM CDT Clinical Communication Virtual Review in [place], [place] [address] [place] [phone] 10/27/2024 11:00 AM CDT Appointment Department of Laboratory Medicine and Pathology, [facility] in [place], [place] [address] [place] [phone] Mira Valencia APRN, C.N.P., D.N.P. [address] [place] [phone] 10/27/2024 1:00 PM CDT Comprehensive Visit Department of Palliative Care in [place], [place] [address] [place] [phone] Faith Mahmood M.D., M.S. [address] [place] [phone] 10/27/2024 3:00 PM CDT Appointment Department of Radiology, [facility], in [place], [place] [address] [place] [phone] Mira Valencia APRN, C.N.P., D.N.P. [address] [place] [phone] 10/29/2024 2:00 PM CDT Telemedicine Department of Medical Genetics in [place], [place] [address] [place] [phone] Óscar Gallegos M.D. [address] [place] [phone] Dora Hernandez M.S., [facility] [place] [address] [place] [phone] 11/11/2024 11:00 AM CDT Office Visit Division of Hematology in [place], [place] [address] [place] [phone] Kirill Grayson M.D. [address] [place] [phone] documented as of this encounter Procedures Procedure [...] IPMN. Consider furtherevaluation with MRI clinically desired us Noel Barragan APRN, C.N.P., D.N.P. IMG CT [...] 12:00 PM CDT 09/20/2024 12:00 PM CDT Noel Barragan APRN, Jyothi.N.P., D.N.P. LAB MICROBIOLOGY - GENERAL ORDERABLES Final Result Performing Organization Address [facility] [place] [address], [place] [address] * Bacteria / Josey Culture, Blood #2 (09/20/2024 11:54 AM CDT) Bacteria/Hilaria da Culture, Blood No growth after 5 day/s of incubation. 09/25/2024 12:02 PM CDT [place] Blood (Blood, Peripheral Draw) 09/20/2024 11:54 AM CDT 09/20/2024 11:56 AM CDT Comment:Specimen Source Site : Blood Jyothi Rice APRN.N.P., D.N.P. LAB MICROBIOLOGY - GENERAL ORDERABLES Final Result Performing Organization Address City/[facility]/ZIP Co de Phone Number [address] [address], [facility] [place] [address] * Bacteria / Josey Culture, Blood #1 (09/20/2024 11:42 AM CDT) Bacteria/Hilaria da Culture, Blood No growth after 5 day/s of incubation. 09/25/2024 12:02 PM CDT [facility] Blood (Blood, Peripheral Draw) 09/20/2024 11:42 AM CDT 09/20/2024 11:56 AM CDT Comment:Specimen Source Site : Blood Jyothi Rice APRN.N.P., D.N.P. LAB MICROBIOLOGY - GENERAL ORDERABLES Final Result Performing Organization Address [facility]/[place] [address] * Glucose, POCT (09/20/2024 11:37 AM CDT) Glucose, POCT, B 127 70 - 140 mg/dL 09/20/2024 11:37 AM CDT [facility] Blood 09/20/2024 11:3 7 AM CDT 09/20/2024 11:47 AM CDT Generic Rals LAB POCT ORDERABLES-MANUAL Final Result Performing Organization Address [facility] [place] [address], [place] [address] * (ABNORMAL) CRP (C-Reactive Protein) (09/20/2024 11:35 AM CDT) C-Reactive Protein (CRP), P 18.8(H) <5.0 mg/L 09/20/2024 11:47 AM CDT [facility] Blood (Blood, Venous) 09/20/2024 11:35 AM CDT 09/20/2024 11:35 AM CDT Noel Barragan APRN, Jyothi.N.P., D.N.P. LAB BLOOD AD D-ON Final Result Performing Organization Address City/[facility]/[place] [address], [facility] CNFL [facility] in [address] [address] * (ABNORMAL) Microscopic Manual (09/20/2024 11:11 AM [...] D.N.P. LAB URINE OR DERABLES Final Result [facility] [address] [place] [phone], [facility] in [address] [address] * (ABNORMAL) Urinalysis with Microscopic if Indicated: [...] 8.0 09/20/2024 12:03 PM CDT [facility] Specific [place] 1.025 1.001 - 1.035 09/20/2024 12:03 PM CDT [facility] Urobilinogen 0.2 0.2 - 1.0 mg/dL 09/20/2024 12:03 PM CDT [facility] Urine (Urine, Midstream) 09/20/2024 11:11 AM CDT 09/20/2024 12:01 PM CDT Noel Barragan APRN, C.N.P., D.N.P. LAB URINE OR DERABLES Final Result [facility] [address] [place] [address], [facility] CNFL [facility] [place] [address] * Blood Gas, Venous, POCT, Blood (09/20/2024 [...] us Noel Barragan APRN, C.N.P., D.N.P. LAB POCT ORD ERABLES - [place] [address], [place] [address] * (ABNORMAL) Magnesium (09/20/2024 11:10 AM CDT) Magnesium, P 2.7(H) 1.7 - 2.3 mg/dL 09/20/2024 11:41 AM CDT [place] Blood (Blood, Venous) 09/20/2024 11:10 AM CDT 09/20/2024 11:18 AM CDT us Noel Barragan APRN, C.N.P., D.N.P. LAB BLOOD AD D-ON Final Result [place] [id number], [facility] [place] [address] * Lactate (09/20/2024 11:10 AM CDT) Lactate, P 1.2 0.5 - 2.2 mmol/L 09/20/2024 11:37 AM CDT [facility] Blood (Blood, Venous) 09/20/2024 11:10 AM CDT 09/20/2024 11:18 AM CDT us Noel Barragan APRN, Jyothi.N.P., D.N.P. LAB BLOOD NO N ADD-ON Final Result Performing Organization Address [facility] [place] [address], [place] [address] * Lipase (09/20/2024 11:10 AM CDT) Lipase, P 38 13 - 60 U/L 09/20/2024 11:41 AM CDT [facility] Blood (Blood, Venous) 09/20/2024 11:10 AM CDT 09/20/2024 11:18 AM CDT us Jyothi Rice APRN.N.P., D.N.P. LAB BLOOD AD D-ON Final Result Performing Organization Address [facility] [place] [address], [place] [address] * (ABNORMAL) Comprehensive Metabolic Panel (09/20/2024 11:10 [...] AM CDT 09/20/2024 11:18 AM CDT us Jyothi Rice APRN.N.P., D.N.P. LAB BLOOD AD D-ON Final Result [facility] [address] [place] [address], [facility] CNFL [facility] in [address] [address] * (ABNORMAL) CBC with Differential, Blood (09/20/2024 [...] AD D-ON Final Result Performing Organization Address City/State/[facility] Co de Phone Number [facility] [address] [place] [address], [facility] in [address] [address] * S-TSH (Thyroid-Stimulating Hormone - Sensitive) (09/20/2024 11:09 AM CDT) TSH, Sensitive 0.7 0.3 - 4.2 mIU/L 09/20/2024 11:51 AM CDT [place] Blood (Blood, Venous) 09/20/2024 11:09 AM CDT 09/20/2024 11:18 AM CDT us Noel Barragan APRN, C.N.P., D.N.P. LAB BLOOD AD D-ON Final Result Performing Organization Address City/[facility]/ZIP Co de Phone Number [address] [address], [facility] in [address] [address] * ECG 12 Lead (09/20/2024 11:05 AM CDT) Ventricular Rate ECG/Min 93 BPM MUSE ID Interval 138 ms MUSE QRSD Interval 78 ms MUSE QT Interval 356 ms MUSE QTC Interval 442 ms MUSE P [place] 64 degrees MUSE R [place] 61 degrees MUSE T Wave [place] 46 degrees MUSE 09/20/2024 11:0 5 AM [...] by JASVIR Alva us Noel Barragan APRN, C.N.P., D.N.P. ECG ORDERABL ES Final Result MUSE NA * DX Chest Portable 1 [...] left basilaratelectasis. Normal heart size. Hiatal hernia. Noel Barragan APRN, C.N.P., D.N.P. IMG DIAGNOST [...] 1148 (New Bag - Prov ider: Manfred Snyder R.N.)1335 (Stopped - Provider: Jaky Werner R.N.) Continuous Medication Order 09/18/2024 09/19/2024 09/20/2024 Lactated Ringer's (CANCELED) 200 mL/hr, intravenous, Continuous, Starting on 09/20/24 at 1335 1339 (New Bag - Prov ider: Jaky Werner RJordyn)1900 (Stopped - Provider: Savi Millard R.N.) documented in this encounter Additional Health Concerns Infection Onset Date Last Indicated Resolved Time COVID19 Pending 09/20/2024 09/20/2024 09/20/2024 1 2:24 PM CDT documented as of this encounter Care Teams Facility Supervisor Relationship Specialty Start Date End Date None Reported, Pcp PCP - General Family Medicine 09/20/24 documented as of this encounter
--- OUTSIDE RECORDS SUMMARY | 2024-09-20 21:14 | XMS_ITS | Encounter Summary ---
Author Organization [facility] Address [address] [place] [address] Care Team Providers Care Oracle Programmer Name Role Phone None Reported, Pcp Primary Care Provider Unavail able Reason for Referral * Outpatient (Routine) - Authorized Specialty Diagnoses / Procedures Referred By Contac t Referred To Contact Diagnoses Retention Urinary Procedures URO Uroflow Julieth Cramer APRN, C.N.P. [address] [place] [address] Phone: tel: fax: [facility] Referral ID Status Reason Start Date Expiration Date V isits Requested Visits Authorized [id number] Authorized 09/24/2024 12/25/2025 1 1 * Outpatient (Routine) - Authorized Specialty Diagnoses / Procedures Referred By Contac t Referred To Contact Urology Diagnoses Retention Urinary Julieth Cramer APRN, C.N.P. [address] [place] [address] Phone: tel: fax:[phone] [facility] Region Referral ID Status Reason Start Date Expiration Date V isits Requested Visits Authorized [id number] Authorized 09/24/2024 03/26/2026 1 1 Encounter Details Date Type Department Care Team (Late st Contact Info) Description 09/20/2024 9:14 PM CDT - 09/24/2024 12:00 PM CDT Hospital Encounter [facility], [facility], Second Floor [address] [place], [place] [phone] Iris Pizano P.A.-C., P.A. [address] [place] [phone] Julieth Cramer APRN, C.N.P. [address] [place] [id number] Failure Renal Acute (Acute Kidney Injury) [N17.9] (Primary Dx); History Of Falling; Retention Urinary Discharge Disposition: Home or Self Care Social History Tobacco Use Types Packs/Day Years Used Date Smoking Tobacco: Never Passive Smoke Exposure: Never Smokeless Tobacco: Never Alcohol Use Standard Drinks/Week Comments Not Currently 14 (1 standard drink = 0.6 oz pure alcohol) Drank beer regularly until 2024. Not drinking much alcohol now. [facility] Utilities Answer Date Recorded In the past 12 months has [facility] [employer], gas, oil, or water [employer] threatened to shut off services in your [...] your living situation today? 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 - 09/24/2024 12:00 PM CDT HOSPITAL DISCHARGE SUMMARY Hospital: [facility] Discharging provider: Julieth Cramer APRN, C.N.P. 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 Per report from the ED provider in [place], staff at his nursing facility had noticed that he was becoming extremely lethargic, falling asleep early and not having anything by mouth in the past 48 hours including food and water. His son who was at the bedside at that time reported that his father was not acting like himself and also confirmed decreased level of consciousness. The patient wasunable to provide any additional review of systems. In the emergency department in [place], he was vitally stable and on room air. VBG was unremarkable. CBC with stable hemoglobin and leukocytosis of 16 with left shift. POC glucose 127. BMP with sodium of 147, bicarbonate of 21, anion gap slightly elevated at 17 and creatinine of 2.35 (baselineis 1.60). Magnesium of 2.7 and bilirubin of 1.6. Other liver function tests stable and unremarkable. C-reactive protein elevated 18.8. TSH within normal limits. Blood cultures obtained. Influenza andCOVID swab negative. Urinalysis with bacteria present with negative white blood cells and negative nitrites. Chest x-ray did not show any acute airspace opacities, pleural effusion or pneumothorax. There is a chronic right hemidiaphragm elevation. CT abdomen without IV contrast showed mild left hydronephrosis and severe bladder distention. There was also large hiatal hernia containing stomach portion of duodenum and portion of pancreas. Patient was given one liter of fluids and admitted to [place] as admission could not be accommodated in , , or [place]. [facility], patient initially had a Riley catheter but was pulling on it and it was making him more agitated so it was removed and he was able to complete a voiding trial. On thefollowing day, patient developed worsening tenderness over his bladder during abdominal palpation and flank tenderness so Riley catheter was replaced with on immediate 1000 mL urine out. Discussed this with his son that he will discharge with Riley catheter in place and plan for outpatient follow-up with Urology for management. Patient was treated and completed 5 day course of ceftriaxone while he was hospitalized. At time of discharge, he was vitally and hemodynamically stable. Patient remained confused throughout hospitalization but this was at his baseline per his son. Recommendations for Outpatient Follow Up by Primary Care Provider Follow up with Urology for management of Riley catheter and further voiding trials Physical examination at discharge day: GENERAL: in no apparent distress. Alert and following commands, not oriented. SKIN: Grossly warm, dry, and intact. NECK: Normal range of motion. CARDIOVASCULAR: Normal S1, S2, regular rate and rhythm. No murmurs or extra heart sounds. No extremity edema. RESPIRATORY: Lungs clear to auscultation bilaterally. No wheezes, rhonchi, rales, or cough. ABDOMEN: Soft, nontender, non-distended. Normal bowel sounds. NEUROLOGIC: No focal deficit. Coordination normal. DISCHARGE MEDICATIONS Discharge Medications TAKE these medications acetaminophen 500 mg tablet Commonly known as: TylenoL Take 1,000 mg by mouth 2 (two) times a day. And twice daily as needed acyclovir 400 mg tablet Commonly known as: Zovirax Take 400 mg by mouth 2 (two) times a day. amLODIPine 5 mg tablet Commonly known as: Norvasc Take 1 tablet by mouth daily. bisacodyL 10 mg suppository Commonly known as: Dulcolax Insert 10 mg into the rectum daily as needed for constipation. escitalopram 10 mg tablet Commonly known as: Lexapro Take 10 mg by mouth daily. fluticasone propionate 50 mcg/actuation nasal spray Commonly known as: Flonase Administer 2 sprays into each nostril daily as needed for rhinitis or allergies. Karol-Lanta 200-200-20 mg/5 mL suspension Take 30 mL by mouth every 6 (six) hours as needed (gastric distress). Generic drug: alum-mag hydroxide-simeth hydrocortisone 1 % cream Apply 1 Application topically daily as needed (itching). ketoconazole 1 % shampoo Commonly known as: Nizoral A-D Apply 1 Application topically as needed for dandruff. Sunday and loperamide 2 mg tablet Commonly known as: Imodium A-D Take 2 mg by mouth 4 (four) times a day as needed for diarrhea. magnesium hydroxide 400 mg/5 mL suspension Take 30 mL by mouth every other day as needed. pantoprazole 40 mg EC tablet Commonly known as: Protonix Take 1 tablet by mouth daily. Rationale for medication changes Patient completed antibiotics during hospitalization Procedures None DISPOSITION: Half-Way Facility CONDITION AT DISCHARGE: Stable OUTPATIENT FOLLOW UP Follow up with PCP Pcp None Reported as scheduled DME Orders None Labs Results from last 7 days Lab Units 09/24/24 0509/23/24 0809/22/24 0512 SODIUM P mmol/L 141 141 141 POTASSIUM P mmol/L 4.1 4.0 3.7 CHLORIDE P mmol/L 106 106 108* BICARBONATE PLASMA mmol/L 25 25 24 BUN P mg/dL 26* 26* 38* CREATININE mg/dL 1.14 1.13 1.23 CALCIUM P mg/dL 8.5* 8.5* 8.5* GLUCOSE P mg/dL 112 102 101 Results from last 7 days Lab Units 09/24/24 0509/23/24 0809/22/24 0512 WBC x10(9)/L 7.2 7.3 6.3 HEMOGLOBIN g/dL 12.1* 12.0* 11.1* HEMATOCRIT % 35.4* 35.1* 33.6* MCV fL 95.7 96.2 97.1 PLATELETS AUTO x10(9)/L 206 190 178 IMAGING No orders to display Total time of care: 45 minutes Julieth Cramer APRN, C.N.P. 09/27/24 7:57 PM CDT documented in this encounter Medications [...] Take 1 tablet by mouth daily. 03/02/2023 documented as of this encounter Progress Notes * Nan David, RCeferinoN. - 09/24/2024 7:58 AM CDT Transition Planning Summary SUBJECTIVE Discharge Planning OBJECTIVE Patient is a 84 y.o. male who was admitted to [facility] 09/20/2024 due to Failure Renal Acute (Acute Kidney Injury) [N17.9]. ASSESSMENT / PLAN ASSESSMENT CM called facility at [phone], no answer. Will attempt again. CM relayed message to the care team of facility request, [facility] would also like provider notes from this hospital stay and any pertinent labs or results be faxed to [phone]. PLAN Discharge Disposition and/or services: Level of Care: Assisted Living/Memory Care Assisted Living Reconnect: The patient is being prepared to return to facility on 09/24/2024 at 12:00PM if medically ready for transfer. Contact Molding Utility Worker if time needs to be changed. Return transportation will be provided by family Pablo, Son, Destination - Admitted Since 09/20/2024 Service Provider Services Address Phone Fax Patient Preferred [facility] [address] [place] [address] [address] [facility] [id number] -- Contact: Facility Pharmacy: [facility]. All prescriptions should be sent at time of discharge. Facility prefers patient arrive by 2pm. [facility] would also like provider notes from this hospital stay and any pertinent labs or results be faxed to [phone]. NURSING: Complete documentation in the Discharge Navigator including Nursing Report Info and Facility/Next Level of Care Info Contact facility to give report prior to patient discharge Send or request [employer] FEEDER to send Facility After Visit Summary and required packet of dismissal information to facility. PRIMARY SERVICE: e-fax prescriptions for all controlled medications. Facility After Visit Summary to include: All discharge medications include dosage, times for administration, diagnosis, and stop date. Ongoing care - wound care, infection precautions, diet, oxygen parameters PT/OT orders needed: No Molding Utility Worker : Will continue to follow and assist if needs arise. Nan David R.N. 09/24/24 * Julieth Cramer APRN, C.N.P. 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 Interval History: Patient is alert but not oriented which is at his baseline. He has no new medical complaints today.Tolerating riley catheter well. OBJECTIVE VITAL SIGNS Vitals: 09/22/24 2240 09/23/24 0519 09/23/24 0830 09/23/24 1231 BP: 149/77 146/59 143/66 BP Location: Left arm Right arm;Upper Patient Position: Lying Semi-recumbent Pulse: 82 70 74 Resp: 16 14 14 Temp: 36.9 ??C 36.9 ??C 36.7 ??C TempSrc: Temporal Temporal Temporal SpO2: 98% 97% 95% Weight: 63.9 kg Height: Intake/Output Last 24 Hours: Intake/Output Summary (Last 24 hours) at 09/23/2024 1658 Last data filed at 09/23/2024 1345 Gross per 24 hour Intake 760 ml Output 1775 ml Net -1015 ml PHYSICAL EXAM GENERAL: in no apparent distress. Alert and following commands, not oriented. SKIN: Grossly warm, dry, and intact. NECK: Normal range of motion. CARDIOVASCULAR: Normal S1, S2, regular rate and rhythm. No murmurs or extra heart sounds. No extremity edema. RESPIRATORY: Lungs clear to auscultation bilaterally. No wheezes, rhonchi, rales, or cough. ABDOMEN: Soft, nontender, non-distended. Normal bowel sounds. NEUROLOGIC: No focal deficit. Coordination normal. DIAGNOSTICS No results found. Lab results last 24 hours: Recent Results (from the past 24 hours) CBC with Differential, Blood Collection Time: 09/23/24 8:26 AM Result Value Hemoglobin 12.0 (L) Hematocrit 35.1 (L) Erythrocytes 3.65 (L) MCV 96.2 RBC Distrib Width 12.0 Platelet Count 190 Leukocytes 7.3 Neutrophils 4.86 Lymphocytes 1.22 Monocytes 0.87 (H) Eosinophils 0.29 Basophils 0.03 Basic Metabolic Panel Collection Time: 09/23/24 8:26 AM Result Value Potassium, P 4.0 Sodium, P 141 Chloride, P 106 Bicarbonate, P 25 Anion Gap, P 10 BUN (Blood Urea Nitrogen), P 26 (H) Creatinine 1.13 Estimated GFR (eGFR) 64 Calcium, Total, P 8.5 (L) Glucose, P 102 No orders to display ASSESSMENT / PLAN Dehydration Poor oral intake, resolved Hypovolemic Hypernatremia, improved Acute kidney injury, resolved Post obstructive nephropathy Urinary retention Hydronephrosis Leukocytosis Patient denies new medical concerns however he is confused at baseline. Today on physical examination, he was no longer tender over bladder or left flank. Tolerating riley catheter. -completed 3 day course ceftriaxone yesterday. -Blood cultures show NGTD -start tamsulosin -maintain riley catheter, discussed with his son that the best plan would be to discharge with riley and f/u outpatient with urology due to his persistent urinary retention and tenderness yesterday which resolved today. Patient's son is in agreement of this plan. -Social work to assist with discharge planning Loose stools Nursing reports that patient had several (3-4) loose stools overnight last night. Suspect this is 2/2 use of stool softeners during hospitalization. Will discontinue stool softeners and monitor overnight tonight. It is unlikely, but in setting of recent antibiotics if loose stools are persistent, he may have developed a GI infection. -Monitor overnight for further loose stools -BMP in am to check for dehydration Frontal lobe dementia Aphasic dementia Parkinson's Disease Cognitive decline Patient was assessed by Neurologist in July. 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 -eyeglasses and hearing aids during the day -sleep enhancement with melatonin -engagement throughout the day -ensure patient is urinating and having BMs -scheduled stool softeners Multiple Myeloma Anemia, iron deficiency and CKD Patient has been on observation since December 2023. Following with Hematology in [place]. -continue with regular outpatient follow up with Hematology It is unsafe for Mr. Greco to be discharged from the hospital at this time. Potential risks and complications include incomplete treatment of UTI and urinary retention. Anticipate that he will be medically ready to discharge tomorrow . Code Status: DNR/DNI VTE prophylaxis: Heparin Discharge Information: Anticipate hospitalization for 1 more days. I spent 35 minutes face to face and non-face to face caring for the patient today. Julieth Cramer APRN, C.N.P. 09/23/24 4:58 PM CDT * Zo Trinidad M.S.W., L.I.C.S.W. - 09/23/2024 2:59 PM CDT SUBJECTIVE Social work consulted with Nurse Luz Marina at [facility] ([phone]) to lettviv know that the patient will be ready for discharge by 12:00 on 09/23/24. This mortgage underwriter provided Luz Marina with patient's nurse's number for a nurse to nurse conversation. This mortgage underwriter also contacted patient's son, Pablo ([phone]) and Pablo verified that he would be able to transport his father tomorrow at that time. OBJECTIVE Adi Greco is an 84 year old male who was admitted for Failure Renal Acute (Acute Kidney Injury) [N17.9] ASSESSMENT / PLAN ASSESSMENT This mortgage underwriter did not assess this patient. Patient is on a 1:1 and discussed this with the team. Dee Dee is doing a trial to ween patient off of 1:1. PLAN Patient to discharge back to [facility] at 12:00 on 09/24/2024. Son, Pablo will provide transportation. Social Work will continue to be available for discharge planning needs. Juliana Xavier Trinidad., L.I.C.S.W. 09/23/24 * Lien Torres R.N. - 09/23/2024 2:40 PM CDT RN received a phone call from [facility]. Upon discharge [facility] would like AVS sent with son during transport. They would also like provider notes from this hospital stay and any pertinent labs or results be faxed [phone]. * Iris Stewart P.T., D.P.T., [facility] - 09/23/2024 12:20 PM CDT In-Patient Physical Therapy Discharge Summary Patient was seen by physical therapy for functional mobility training while hospitalized. He was progressing towards his stated therapy goals at discharge. Please see previous physical therapy notes for the patient's functional status. He will discharge to [facility] when medically appropriate. Hewill be discharged from physical therapy services at this time. Evonne Stewart P.T., Asia.P.TCeferino, OCS * Merlyn Jean P.T.A. 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 Patient/Caregiver Goals: did not state, decreased cognition, oriented to self only Activity Orders (From admission, onward) Start Ordered 09/20/242121 Activity/Position: Up to Chair, Up with Assistance; Other (comment); Ambulate as muchas possible considering previous activity level and physical functioning. Resume activity level following recovery from procedure and/or tests unless otherwise ... Until discontinued Question Answer Comment Activity Level: Up to Chair Activity Level: Up with Assistance Ambulation Goals: Other (comment) Ambulation goals comment: Ambulate as much as possible considering previous activity level and physical functioning. Resume activity level following recovery from procedure and/or tests unless otherwise directed. Up to chair goals: With meals Restrictions/Precautions: None Brace/Device: None 09/20/24212009/20/242121 Fall precautions Continuous 09/20/242120 Precautions Other Precautions: Fall risk, cognition deficits, aphasic Parkinson's, agitation Fall Risk (65 and older) Fall in the last 12 months: No Are you fearful of falling?: No Fall Risk Comments: Unsure of the accuracy of patient's responses due to decreased cognition, but he did indicate subjectively no falls and no fear of falling. OBJECTIVE Pain Rating: no pain reported Bed Mobility - Supine to Sit Level of Assistance: Supervision/Set-up Device: None Bed Mobility - Sit to Supine Level of Assistance: Supervision/Set-up Device: None Sit to Stand Transfers # of Assistants: 1 Transfer Surface: Bed, Toilet/Commode Transfer Equipment: Front wheeled walker, Gait belt Level of Assistance: Contact guard assistance, Minimal assistance Assessment/Delivery: Assessed, Instructed, Therapist assisted, Facilitated Comments: Cues for hand placement Stand to Sit Transfers # of Assistants: 1 Transfer Surface: Toilet/Commode, Bed Transfer Equipment: Front wheeled walker, Gait belt Level of Assistance: Supervision/set-up Assessment/Delivery: Assessed, Instructed, Therapist assisted, Facilitated Comments: Cues for hand placement, safety Toilet Transfers # of Assistants: 1 Transfer Surface: Toilet Transfer Approach: To and from, Ambulating Transfer Equipment: Front wheeled walker, Grab bars Level of Assistance: Contact guard assistance Assessment/Delivery: Assessed, Facilitated Gait Assessment/Training Distance (m): 15 m Surface: Even, Smooth/hard Device: Front-wheeled walker, Gait belt # of Assistants: 1 Level of Assistance: Contact guard assistance Assessment of Gait: Patient was initially agreeable to go for a walk, but after using the bathroom,he declines, stating that he is just going back to bed. He was able to ambulate short distance in the room, with walker and CGA/cues. Training/Intervention: Patient requires verbal cuing for navigation and safety, reinforcement for walker management, but no physical assistance is required. Response: Recommend short distance ambulation with walker and 1 assist, several times a day with nursing staff. It is felt that patient has the ability to ambulate farther, but he self limits, preferring to stay in his room, and today insisting on returning to bed rather than walking farther. Team Communication: Discussed patient's care with OT, Patient's nurse was contacted and patient's status was discussed, Discussed patient's care with PT, insemination worker/care management was contacted and patient's status was discussed Upon arrival in room patient was found semi-herring's position in bed, needs including call savage/light in reach. Following treatment patient was left semi- herring's position in bed, needs including call savage/light in reach, alarm on. Assessment Patient is from memory care, and will return to memory care following hospitalization. It appears that he is functioning at his baseline for mobility, as staff confirmed to social work that he was 1 assist with walker, ambulating short distances in his room, with encouragement from staff.At this time, recommend nursing continue to ambulate in room distances with walker and 1 assist while hospitalized, encouraging increased ambulation distance if able, to increase his activity tolerance. Patient is self limiting his participation in therapy, progression of ambulation, and at this time is not requiring skilled PT services while hospitalized. Nursing Recommendations: Ambulate within room with walker, 1 assist From a physical therapy perspective, the level of care below has been recommended for Adi Bertin Angus after hospital discharge. This level of care is based on their functional abilities during today's session. This may change throughout the hospital course and will be updated as appropriate. Discharge Considerations: Barriers to Discharge Home: None Level of Care Needed - PT: Assistance with transfers (Comment), Assistance with walking and moving around the home, Assistance with bed mobility, Physical assistance needed, Cognitive assistance needed Equipment Recommended - PT: Front-wheeled walker Clinical Impression: Patient was admitted 09/20/2024 with a diagnosis of: Failure Renal Acute (Acute Kidney Injury) [N17.9]. Comorbid Conditions: Cognitive/memory disorder, Other (Comment), Cancer (Parkinson's, multiple myeloma, dementia) Personal Factors: Cognition, Needs assistive device, Age Functional Goals and Timeframes: PT Goal #1: Patient will demonstrate pivot transfer with supervision with use of front wheeled walker to decrease caregivers load in 4-5 sessions PT Goal #1 Status: Achieved PT Goal #2: Patient will ambulate with supervision 30 m with front wheeled walker to decrease caregivers load in 4-5 sessions PT Goal #2 Status: Progressing Plan Therapy Attestation: Physical Therapy Attestation Statement: Patient unable to verbalize agreement to the plan of care and goals due to mental status or level of consciousness, no family present to consult. When/if appropriate, therapy will reassess patient's agreement. Inpatient PT Received On Date: 09/23/24 Requires Inpatient Follow-Up: No BIOMEDICAL SCIENTIST Visit Trackin Time Spent with Patient Therapeutic Interventions Therapeutic Activity (min): 15 min Time Tracking Total Timed Units (min): 15 min Total Treatment Time (min): 15 min * Connie Liang O.T. 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 Prior Mobility/Functional Transfers Level of [place]: Modified independent Gait Devices/Wheelchair Used: Front wheeled walker Prior Function/Occupational Profile Dominant Hand: Right Lives With: Alone Receives Help From: Facility staff ADL Assistance: Independent IADL/Homemaking Assistance: Required assistance Driving: Does not drive Occupational Role: Retired Home Living Type of Home: Assisted living facility (memory care) Home Layout: One level Home Access: Level entry Home Living Comments: Pt is quesrtionable historian and PLOF will need to be confirmed with famiy or facility. Patient Comments: No i just want to go there patient stated after attempting to encourage patientto work with physical therapist to go on a walk. Patient appeared to be agitated Activity Orders (From admission, onward) Start Ordered 09/20/242121 Activity/Position: Up to Chair, Up with Assistance; Other (comment); Ambulate as muchas possible considering previous activity level and physical functioning. Resume activity level following recovery from procedure and/or tests unless otherwise ... Until discontinued Question Answer Comment Activity Level: Up to Chair Activity Level: Up with Assistance Ambulation Goals: Other (comment) Ambulation goals comment: Ambulate as much as possible considering previous activity level and physical functioning. Resume activity level following recovery from procedure and/or tests unless otherwise directed. Up to chair goals: With meals Restrictions/Precautions: None Brace/Device: None 09/20/24212009/20/242121 Fall precautions Continuous 09/20/242120 Precautions Other Precautions: Fall risk, cognition deficits, aphasic Parkinson's, agitation Fall Risk (65 and older) Fall in the last 12 months: No Are you fearful of falling?: No OBJECTIVE FACES Pain Rating Scale: 2 Pain Interventions: Repositioning and Therapy/Exercise LE Dressing LE Dressing Location: Standing, Chair LE Dressing Delivery: Assessed, Therapist Assisted, Facilitated LE Dressing Items Included: Underwear/Adult incontinence briefs LE Dressing Level of Assistance: Moderate assistance LE Dressing Comments: Required assistance due to cognition. Patient unable to sequence steps in order to Don/doff briefs over hips. Toileting Toileting Location: Toilet Toileting Delivery: Assessed, Therapist Assisted, Facilitated Toileting Level of Assistance: Moderate assistance Toileting Comments: Patient had bowel incontinent episode and required assist for hygiene. ADL Comments ADL Comments: Declined all other ADLs Bed Mobility - Supine to Sit Level of Assistance: Supervision/Set-up Device: None Bed Mobility - Sit to Supine Level of Assistance: Supervision/Set-up Device: None Sit to Stand Transfers # of Assistants: 1 Transfer Surface: Bed, Toilet/Commode Transfer Equipment: Front wheeled walker, Gait belt Level of Assistance: Minimal assistance Assessment/Delivery: Assessed, Instructed, Therapist assisted Comments: Verbal cuing for hand placement, walker management, and object navigation. Patient completed functional mobility to the bathroom and back to the chair. Stand to Sit Transfers # of Assistants: 1 Transfer Surface: Toilet/Commode, Bed Transfer Equipment: Front wheeled walker, Gait belt Level of Assistance: Supervision/set-up Assessment/Delivery: Assessed, Instructed, Therapist assisted, Facilitated Comments: Verbal cues for hand placement and eccentric control Team Communication: Patient's nurse was contacted and patient's status was discussed, Discussed patient's care with PT Co-treatment with: Physical Therapy (BIOMEDICAL SCIENTIST) Upon arrival in room patient was found supine in bed, needs including call savage/light in reach, 1:1sitter present. Following treatment patient was left supine in bed, needs including call savage/lightin reach, alarm on, 1:1 sitter present. Assessment Discharge Considerations: Barriers to Discharge Home: None Discharge Therapy Needs - OT: No further skilled therapy Level of Care Needed - OT: Assistance with meal preparation, Assistance with financial administration officer, Assistance with medication set up/administration, Assistance with housekeeping, Assistance with shopping, Assistance with showering/bathing, Assistance with toileting, Assistance with dressing Today's Clinical Impression: Patient was admitted 09/20/2024 with a diagnosis of: Failure Renal Acute (Acute Kidney Injury) [N17.9]. The patient's current level function appears to be nearing his baseline. He does continue to be limited due to low motivation, cognitive deficits, and sedentary preferences. Patient is not appropriate for short-term rehab services, as patient is likely at his baseline and limited due to motivation/cognition. It is anticipated that the patient will return to his memory care facility with assist of1 once medically stable. No further acute care OT services indicated at this time. OT will discharge patient from case load. Education was provided regarding evaluative findings, diagnosis, prognosis, potential risks and benefits of rehabilitation interventions. The treatment plan and discharge recommendations may be modified based upon pt response to treatment. Rehab Potential: fair Comorbid Conditions: Cognitive/memory disorder, Other (Comment) (Parkinson's) Personal Factors: Cognition, Needs assistive device, Emotional status, Motivation level, Safety awareness, Sedentary lifestyle Occupational Profile and History review: Expanded Performance Deficits: 3 - 5 performance deficits Evaluation Complexity: Moderate Functional Goals and Timeframes: OT Goal #1: Patient will complete all aspects of toileting with modified independence using 2 WW. OT Goal #1 Status: Progressing OT Goal #2: Patient will increase stand tolerance to 5 minutes in order to better complete standingself cares. OT Goal #2 Status: Achieved OT Goal #3: Patient will complete all aspects lower body dressing using AE as necessary with modified independence using 2 WW. OT Goal #3 Status: Progressing Plan Therapy attestation: Patient agrees with the plan of care and goals. OT Amount: 1 visit per day OT Frequency: 5 times per week OT Inpatient Duration : Until goals are met or hospital discharge Inpatient OT Received On Date: 09/21/24 Requires Inpatient OT Follow-Up: No Plan: Discontinue OT Treatment Interventions: Therapeutic exercise, Therapeutic functional activity, Self-care/home management Time Spent with Patient Therapeutic Interventions Home Management Training (min): 18 min Time Tracking Total Timed Units (min): 18 min Total Treatment Time (min): 18 min * Julieth Cramer APRN, C.N.PCeferino - 09/22/2024 8:03 PM CDT Hospitalist daily progress note SUBJECTIVE Brief Summary: 84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 Interval History: Patient is alert but not oriented, makes several odd any unusual comments at times. He denies any c/o when questioned but does c/o flank pain and tenderness over bladder. Nursing completed bladder scan before void, 700 mL, after void 500 mL. Riley catheter replaced with >1000 mL output. OBJECTIVE VITAL SIGNS Vitals: 09/21/24 2100 09/22/24 0512 09/22/24 0910 09/22/24 1514 BP: (!) 116/52 130/61 130/62 BP Location: Right arm;Upper Right arm;Upper Left arm;Upper Patient Position: Semi-recumbent Semi-recumbent Lying Pulse: 75 67 79 Resp: 16 14 16 Temp: 37.1 ??C 36.5 ??C 36.6 ??C TempSrc: Temporal Temporal Temporal SpO2: 96% 98% 97% Weight: 64.4 kg Height: Intake/Output Last 24 Hours: Intake/Output Summary (Last 24 hours) at 09/22/20242002 Last data filed at 09/22/2024 1739 Gross per 24 hour Intake 1830 ml Output 2377 ml Net -547 ml PHYSICAL EXAM GENERAL: in no apparent distress. Alert and following commands, not oriented. SKIN: Grossly warm, dry, and intact. NECK: Normal range of motion. CARDIOVASCULAR: Normal S1, S2, regular rate and rhythm. No murmurs or extra heart sounds. No extremity edema. RESPIRATORY: Lungs clear to auscultation bilaterally. No wheezes, rhonchi, rales, or cough. ABDOMEN: Soft, tender to palpation over bladder and left flank, non-distended. Normal bowel sounds. NEUROLOGIC: No focal deficit. Coordination normal. DIAGNOSTICS No results found. Lab results last 24 hours: Recent Results (from the past 24 hours) CBC with Differential, Blood Collection Time: 09/22/24 5:12 AM Result Value Hemoglobin 11.1 (L) Hematocrit 33.6 (L) Erythrocytes 3.46 (L) MCV 97.1 RBC Distrib Width 12.4 Platelet Count 178 Leukocytes 6.3 Neutrophils 4.21 Lymphocytes 1.02 Monocytes 0.76 Eosinophils 0.24 Basophils <0.03 Basic Metabolic Panel Collection Time: 09/22/24 5:12 AM Result Value Potassium, P 3.7 Sodium, P 141 Chloride, P 108 (H) Bicarbonate, P 24 Anion Gap, P 9 BUN (Blood Urea Nitrogen), P 38 (H) Creatinine 1.23 Estimated GFR (eGFR) 58 (L) Calcium, Total, P 8.5 (L) Glucose, P 101 No orders to display ASSESSMENT / PLAN Dehydration Poor oral intake, resolved Hypovolemic Hypernatremia, improved Acute kidney injury, resolved Post obstructive nephropathy Urinary retention Hydronephrosis Leukocytosis Patient denies any new medical concerns, no somnolence noted. Bladder scan revealed >500 mL postvoid so riley catheter replaced today with >1000 urine output. Prior to riley catheter placement, patient did have tenderness over bladder and left flank. Will plan to continue to monitor I&O and generalized improvement. Long discussion with patient, son and other family at bedside. May consider another voiding trial vs discharge with riley cathter pending clinical course. -continue Ceftriaxone -Blood cultures show NGTD -No urine cultures sent, will guide further therapy based on clinical improvement -start tamsulosin -maintain riley catheter, consider voiding trial again -Social work to assist with discharge planning Frontal lobe dementia Aphasic dementia Parkinson's Disease Cognitive decline Patient was assessed by Neurologist in July. 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 -eyeglasses and hearing aids during the day -sleep enhancement with melatonin -engagement throughout the day -ensure patient is urinating and having BMs -scheduled stool softeners Multiple Myeloma Anemia, iron deficiency and CKD Patient has been on observation since December 2023. Following with Hematology in [place]. -continue with regular outpatient follow up with Hematology Code Status: DNR/DNI VTE prophylaxis: Heparin Discharge Information: Anticipate hospitalization for 1-2 more days. I spent 55 minutes face to face and non-face to face caring for the patient today. Julieth Cramer APRN, C.N.PCeferino 09/22/24 8:03 PM CDT * Merlyn Jean P.T.A. 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 Patient/Caregiver Goals: did not state, decreased cognition, oriented to self only Activity Orders (From admission, onward) Start Ordered 09/20/242121 Activity/Position: Up to Chair, Up with Assistance; Other (comment); Ambulate as muchas possible considering previous activity level and physical functioning. Resume activity level following recovery from procedure and/or tests unless otherwise ... Until discontinued Question Answer Comment Activity Level: Up to Chair Activity Level: Up with Assistance Ambulation Goals: Other (comment) Ambulation goals comment: Ambulate as much as possible considering previous activity level and physical functioning. Resume activity level following recovery from procedure and/or tests unless otherwise directed. Up to chair goals: With meals Restrictions/Precautions: None Brace/Device: None 09/20/24212009/20/242121 Fall precautions Continuous 09/20/242120 Precautions Other Precautions: Fall risk, cognition deficits, aphasic Parkinson's Fall Risk (65 and older) Fall in the last 12 months: No Are you fearful of falling?: No Fall Risk Comments: Unsure of the accuracy of patient's responses due to decreased cognition, but he did indicate subjectively no falls and no fear of falling. OBJECTIVE Pain Rating: no pain reported Bed Mobility - Supine to Sit # of Assistants: 1 Level of Assistance: Supervision/Set-up Device: Bed rail, Head of bed elevated Cuing: Verbal Sit to Stand Transfers # of Assistants: 1 Transfer Surface: Bed, Toilet/Commode, Chair Transfer Equipment: Front wheeled walker, Gait belt Level of Assistance: Contact guard assistance Assessment/Delivery: Assessed, Instructed Comments: cues for hand placement, safety Stand to Sit Transfers # of Assistants: 1 Transfer Surface: Chair, Toilet/Commode, Bed Transfer Equipment: Front wheeled walker, Gait belt Level of Assistance: Contact guard assistance Assessment/Delivery: Assessed, Instructed Comments: Cues for proper alignment, safety, hand placement Toilet Transfers Transfer Surface: Toilet Transfer Approach: To and from, Ambulating Transfer Equipment: Front wheeled walker, Grab bars Level of Assistance: Contact guard assistance Assessment/Delivery: Assessed, Facilitated Toilet Transfers Comments: managed pad with single hand, while supporting self on walker with the other hand Gait Assessment/Training Distance (m): 12 m Surface: Even, Smooth/hard Device: Front-wheeled walker, Gait belt # of Assistants: 1 Level of Assistance: Contact guard assistance Assessment of Gait: Patient ambulated with walker, 1 assist, short distances in his room, to the bathroom for toileting tasks, to the sink for grooming task, into the hallway and back to his chair. Training/Intervention: Patient requires verbal cuing for navigation and safety, reinforcement for walker management, but no physical assistance is required. Response: Recommend short distance ambulation with walker and 1 assist, several times a day, with nursing staff. Feel patient could have ambulated further, but he self limited once he got in the hallway I am not sure what is going on here?? , turned around and went back in the room. Team Communication: Discussed patient's care with OT, Patient's nurse was contacted and patient's status was discussed, Discussed patient's care with PT Upon arrival in room patient was found semi-herring's position in bed, needs including call savage/light in reach. Following treatment patient was left seated in the chair, needs including call savage/light in reach, alarm on, staff sitter in room. Assessment Patient was residing in memory care, prior to hospitalization. He is currently completing mobility with contact guard assist for safety, with 2 wheeled walker. Anticipate patient would return to his memory care, following hospitalization. Nursing Recommendations: Ambulate within room with walker, 1 assist From a physical therapy perspective, the level of care below has been recommended for Adi Greco after hospital discharge. This level of care is based on their functional abilities during today's session. This may change throughout the hospital course and will be updated as appropriate. Discharge Considerations: Barriers to Discharge Home: None Discharge Therapy Needs - PT: Ongoing skilled physical therapy Level of Care Needed - PT: Assistance with transfers (Comment), Assistance with walking and moving around the home, Assistance with bed mobility, Physical assistance needed, Cognitive assistance needed Equipment Recommended - PT: 4-wheeled walker Clinical Impression: Patient was admitted 09/20/2024 with a diagnosis of: Failure Renal Acute (Acute Kidney Injury) [N17.9]. Comorbid Conditions: Cognitive/memory disorder, Other (Comment), Cancer (Parkinson's, multiple myeloma, dementia) Personal Factors: Cognition, Needs assistive device, Age Functional Goals and Timeframes: PT Goal #1: Patient will demonstrate pivot transfer with supervision with use of front wheeled walker to decrease caregivers load in 4-5 sessions PT Goal #1 Status: Achieved PT Goal #2: Patient will ambulate with supervision 30 m with front wheeled walker to decrease caregivers load in 4-5 sessions PT Goal #2 Status: Progressing Plan Therapy Attestation: Physical Therapy Attestation Statement: Patient unable to verbalize agreement to the plan of care and goals due to mental status or level of consciousness, no family present to consult. When/if appropriate, therapy will reassess patient's agreement. Plan: Continue with current plan PT Amount: 1 visit per day PT Frequency: 6 times per week PT Inpatient Duration : Until goals are met or hospital discharge Inpatient PT Received On Date: 09/22/24 Requires Inpatient Follow-Up: Yes PT - Next Inpatient Appointment: 09/23/24 Treatment/Interventions: Therapeutic functional activity, Therapeutic exercise, Neuromuscular re-education, Gait training BIOMEDICAL SCIENTIST Visit Trackin Time Spent with Patient Therapeutic Interventions Gait Training (min): 12 min Therapeutic Activity (min): 8 min Time Tracking Total Timed Units (min): 20 min Total Treatment Time (min): 20 min * Angie Llanes O.T. 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 Prior Mobility/Functional Transfers Level of [place]: Modified independent Gait Devices/Wheelchair Used: Front wheeled walker Prior Function/Occupational Profile Dominant Hand: Right Lives With: Alone Receives Help From: Facility staff ADL Assistance: Independent IADL/Homemaking Assistance: Required assistance Driving: Does not drive Occupational Role: Retired Home Living Type of Home: Assisted living facility (memory care) Home Layout: One level Home Access: Level entry Home Living Comments: Pt is quesrtionable historian and PLOF will need to be confirmed with famiy or facility. Family/Caregiver Present: No Patient/Caregiver Goals: did not state, decreased cognition, oriented to self only Patient Comments: 0/10 pain Activity Orders (From admission, onward) Start Ordered 09/20/242121 Activity/Position: Up to Chair, Up with Assistance; Other (comment); Ambulate as muchas possible considering previous activity level and physical functioning. Resume activity level following recovery from procedure and/or tests unless otherwise ... Until discontinued Question Answer Comment Activity Level: Up to Chair Activity Level: Up with Assistance Ambulation Goals: Other (comment) Ambulation goals comment: Ambulate as much as possible considering previous activity level and physical functioning. Resume activity level following recovery from procedure and/or tests unless otherwise directed. Up to chair goals: With meals Restrictions/Precautions: None Brace/Device: None 09/20/24212009/20/242121 Fall precautions Continuous 09/20/242120 Precautions Other Precautions: Fall risk, cognition deficits, aphasic Parkinson's Fall Risk (65 and older) Fall in the last 12 months: No Are you fearful of falling?: No OBJECTIVE No pain behavior observed Balance Static Sitting-Balance: Good (Maintains balance without support) Dynamic Sitting-Balance: Good (Maintains balance without support) Static Standing-Balance: Fair (Maintains balance with handheld/contact guard assistance), Good (Maintains balance without support) Dynamic Standing-Balance: Fair (Maintains balance with handheld/contact guard assistance) Balance Comments: 2ww Grooming Grooming Location: Standing at sink Grooming Delivery: Facilitated, Assessed Grooming Level of Assistance: Supervision/Set-up Grooming Comments: Patient asked what is this? When holding the toothbrush but once item was identified, patient was able to brush teeth with standby assist. Toileting Toileting Location: Toilet Toileting Delivery: Assessed, Instructed, Therapist Assisted Toileting Adaptive Equipment: Grab bars Toileting Level of Assistance: Minimal assistance Bed Mobility - Supine to Sit Level of Assistance: Supervision/Set-up Device: Bed rail, Head of bed elevated Cuing: Verbal Sit to Stand Transfers # of Assistants: 1 Transfer Surface: Bed, Toilet/Commode, Chair Transfer Equipment: Front wheeled walker, Gait belt Level of Assistance: Contact guard assistance Assessment/Delivery: Assessed, Instructed Comments: Patient cued for hand placement and safety. Stand to Sit Transfers # of Assistants: 1 Transfer Surface: Chair, Toilet/Commode, Bed Transfer Equipment: Front wheeled walker, Gait belt Level of Assistance: Contact guard assistance Assessment/Delivery: Assessed, Instructed Comments: Cues for proper alignment, safety, hand placement INTERDISCIPLINARY PATIENT EDUCATION RECORD Education provided to: Patient Assessment of learning challenges of patient/family:Barriers Including cognitive deficits Learning preferences: Verbal Topic of education: OT POC, sequencing cues, balance and transfer training, self-care adaptive techniques Current knowledge assessment:Some Understanding Teaching method: Verbal and Demonstration Outcomes and reinforcement: Demonstrates understanding Team Communication: Discussed patient's care with PT, Patient's nurse was contacted and patient's status was discussed Upon arrival in room patient was found semi-herring's position in bed, needs including call savage/light in reach, alarm on. Following treatment patient was left long sitting in recliner chair, needs including call savage/light in reach, alarm on. 1:1 with nursing. Assessment Discharge Considerations: Barriers to Discharge Home: None Discharge Therapy Needs - OT: No further skilled therapy Level of Care Needed - OT: Assistance with meal preparation, Assistance with financial administration officer, Assistance with medication set up/administration, Assistance with housekeeping, Assistance with shopping, Assistance with showering/bathing, Assistance with toileting, Assistance with dressing Today's Clinical Impression: Patient was admitted 09/20/2024 with a diagnosis of: Failure Renal Acute (Acute Kidney Injury) [N17.9]. Currently, patient presents with limitations including generalized weakness, reduced activity tolerance, decreased balance resulting in the need of assist of 1 to complete self cares safely. From an occupational therapy perspective, patient is performing self cares close to baseline level and would continue to benefit from skilled OT intervention while in the hospital. Patient is appropriate to discharge back to memory care with assist of 1 caregiver for self-care mobility. At current functional status, patient is requiring SBA/CGA during self cares. The treatment plan and discharge recommendations may be modified based upon pt response to treatment. Rehab Potential: good Functional Goals and Timeframes: OT Goal #1: Patient will complete all aspects of toileting with modified independence using 2 WW. OT Goal #1 Status: Progressing OT Goal #2: Patient will increase stand tolerance to 5 minutes in order to better complete standingself cares. OT Goal #2 Status: Progressing OT Goal #3: Patient will complete all aspects lower body dressing using AE as necessary with modified independence using 2 WW. OT Goal #3 Status: Progressing Plan Therapy attestation: Patient agrees with the plan of care and goals. OT Amount: 1 visit per day OT Frequency: 5 times per week OT Inpatient Duration : Until goals are met or hospital discharge Inpatient OT Received On Date: 09/22/24 Requires Inpatient OT Follow-Up: Yes OT - Next Inpatient Appointment: 09/23/24 Plan for next session: Lower body dressing, increase stand duration, increase activity tolerance for self cares Plan: Continue with current plan Treatment Interventions: Therapeutic exercise, Therapeutic functional activity, Self-care/home management Time Spent with Patient Therapeutic Interventions Home Management Training (min): 17 min Time Tracking Total Timed Units (min): 17 min Total Treatment Time (min): 17 min * Fili Wright PharmCeferinoDCeferino - 09/21/2024 2:34 PM CDT Images from the original note were not included. Admission Medication History Note Adherence issues: No concerns Medication list source: Outside facility [facility] Medication related information: MAR from [facility] (ph: [phone]). Atorvastatin was not on his MAR. Prior to Admission Medications Med List Status: Pharmacy Complete Set By: Fili Wright, PharmCeferinoDCeferino at 09/21/2024 2:34 PM Taking? Last Dose Informant Start Date End Date LT acetaminophen (TylenoL) 500 mg tablet 09/20/2024 at Morning External Chart, Other -- -- Take 1,000 mg by mouth 2 (two) times a day. And twice daily as needed acyclovir (Zovirax) 400 mg tablet 09/20/2024 at Morning External Chart, Other -- -- Take 400 mg by mouth 2 (two) times a day. alum-mag hydroxide-simeth (Karol-Lanta) 200-200-20 mg/5 mL suspension -- External Chart, Other -- -- Take 30 mL by mouth every 6 (six) hours as needed (gastric distress). amLODIPine (NORVASC) 5 mg tablet 09/20/2024 at Morning External Chart, Other 03/08/23 -- Take 1 tablet by mouth daily. atorvastatin (LIPITOR) 20 mg tablet () Not Taking -- 03/20/23 08/14/24 Take 1 tablet by mouth daily. Patient not taking: Reported on 09/21/2024 Notes: Not on MAR bisacodyL (Dulcolax) 10 mg suppository -- External Chart, Other -- -- Insert 10 mg into the rectum daily as needed for constipation. escitalopram (Lexapro) 10 mg tablet 09/20/2024 at Morning External Chart, Other -- -- Take 10 mg by mouth daily. fluticasone propionate (Flonase) 50 mcg/actuation nasal spray -- External Chart, Other -- -- Administer 2 sprays into each nostril daily as needed for rhinitis or allergies. hydrocortisone 1 % cream -- External Chart, Other -- -- Apply 1 Application topically daily as needed (itching). ketoconazole (Nizoral A-D) 1 % shampoo -- External Chart, Other -- -- Apply 1 Application topically as needed for dandruff. Sunday and loperamide (Imodium A-D) 2 mg tablet -- External Chart, Other -- -- Take 2 mg by mouth 4 (four) times a day as needed for diarrhea. magnesium hydroxide 400 mg/5 mL suspension -- External Chart, Other -- -- Take 30 mL by mouth every other day as needed. pantoprazole (PROTONIX) 40 mg EC tablet 09/20/2024 at Morning External Chart, Other 03/02/23 -- Take 1 tablet by mouth daily. * Iris Pizano P.A.-C., P.A. 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 Interval History: Patient is alert and following commands. He does have expressive aphasia, but this is his baseline.Patient is very pleasant and able to interact with staff, however he is not able to make his needs known. Son, Pablo, was called and updated on plan. OBJECTIVE VITAL SIGNS Vitals: 09/21/24 0210 09/21/24 0416 09/21/24 0817 09/21/24 0900 BP: (!) 122/54 126/56 BP Location: Right arm;Upper Right arm;Upper Patient Position: Semi-recumbent Sitting Pulse: 68 80 Resp: 15 Temp: 36.1 ??C 36.6 ??C TempSrc: Temporal Temporal SpO2: 98% 97% 94% Weight: 57.9 kg Height: Intake/Output Last 24 Hours: Intake/Output Summary (Last 24 hours) at 09/21/2024 1258 Last data filed at 09/21/2024 1158 Gross per 24 hour Intake 540 ml Output 1000 ml Net -460 ml PHYSICAL EXAM GENERAL: in no apparent distress. Alert and following commands. SKIN: Grossly warm, dry, and intact. NECK: Normal range of motion. CARDIOVASCULAR: Normal S1, S2, regular rate and rhythm. No murmurs or extra heart sounds. No extremity edema. Peripheral pulses are symmetric and 2+. RESPIRATORY: Lungs clear to auscultation bilaterally. No wheezes, rhonchi, rales, or cough. ABDOMEN: Soft, non-tender, non-distended. Normal bowel sounds. NEUROLOGIC: No focal deficit. Coordination normal. DIAGNOSTICS No results found. Lab results last 24 hours: Recent Results (from the past 24 hours) Basic Metabolic Panel Collection Time: 09/21/24 5:12 AM Result Value Potassium, P 3.3 (L) Sodium, P 143 Chloride, P 107 Bicarbonate, P 22 Anion Gap, P 14 BUN (Blood Urea Nitrogen), P 44 (H) Creatinine 1.30 Estimated GFR (eGFR) 54 (L) Calcium, Total, P 8.7 (L) Glucose, P 87 CBC with Differential, Blood Collection Time: 09/21/24 5:12 AM Result Value Hemoglobin 11.6 (L) Hematocrit 35.0 (L) Erythrocytes 3.55 (L) MCV 98.6 (H) RBC Distrib Width 12.4 Platelet Count 200 Leukocytes 11.5 (H) Neutrophils 8.83 (H) Lymphocytes 1.11 Monocytes 1.29 (H) Eosinophils 0.20 Basophils 0.03 No orders to display ASSESSMENT / PLAN #Dehydration #Poor oral intake, resolved #Hypovolemic Hypernatremia, improved #Acute kidney injury, resolved #Post obstructive nephropathy #Urinary retention #Hydronephrosis #Leukocytosis 84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 Initial workup showed leukocytosis with left shift and elevated CRP. Creatine was noted to be 2.35,baseline is 1.6. Serum sodium of 147. TSH WNL. COVID/Flu negative. Urinalysis with bacteria without leukocyte esterase or nitrates. CT abdomen did show evidence of left hydronephrosis with severe bladder distention; post Riley catheter placement had 1.7 L of urine output. Urinary retention could be contributing to acute kidney injury. No clear evidence of infection on workup, we will treat for UTI given leukocytosis and elevated CRP. Patient was started on tamsulosin 0.4. Given that patient keeps tugging at his urinary catheter, wewill remove catheter today and do a voiding trial with bladder scans. IV fluids stops this patient is tolerating oral intake of food and fluids well. -continue Ceftriaxone -follow up blood culture -follow urine cultures -gentle fluids overnight -start tamsulosin -remove urinary catheter and start voiding trial #Frontal lobe dementia #Aphasic dementia #Parkinson's Disease #Cognitive decline Patient was assessed by Neurologist in July. 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 -eyeglasses and hearing aids during the day -sleep enhancement with melatonin -engagement throughout the day -ensure patient is urinating and having BMs -scheduled stool softeners #Multiple Myeloma #Anemia, iron deficiency and CKD Patient has been on observation since December 2023. Following with Hematology in [place]. Labs on admission showed serum calcium within normal limits at 9.7, which is reassuring in the setting of dehydration -continue with regular outpatient follow up with Hematology Code Status: DNR/DNI VTE prophylaxis: Heparin Discharge Information: Pending clinical course; anticipate medically stable on 09/22/24 I spent 55 minutes face to face and non-face to face caring for the patient today. Lelo Pizano P.A.-C., P.A. 09/21/24 12:54 PM CDT * Fili Wright PharmCeferinoDCeferino - 09/21/2024 11:50 AM CDT Pharmacist Progress Note Reason for admission: Failure Renal Acute (Acute Kidney Injury) [N17.9] PMH: Medical History[1] OBJECTIVE Home medications being held/changed: Unable to verify home meds VTE prophylaxis: heparin 5000 units subcut q8hr Stress ulcer prophylaxis: None Lab Results Component Value Date WBC 11.5 (H) 09/21/2024 HGB 11.6 (L) 09/21/2024 HCT 35.0 (L) 09/21/2024 MCV 98.6 (H) 09/21/2024 PLT 200 09/21/2024 Lab Results Component Value Date NA 143 09/21/2024 KSERUM 3.6 07/17/2024 KPLASMA 3.3 (L) 09/21/2024 CL 107 09/21/2024 BICARB 22 09/21/2024 CREATININE 1.30 09/21/2024 BUN 44 (H) 09/21/2024 ANIONGAP 14 09/21/2024 GLUCOSE 87 09/21/2024 GLUCOSEPOC 127 09/20/2024 CALCIUM 8.7 (L) 09/21/2024 ASSESSMENT / PLAN Generalized Weakness: -Leukocytosis with CRP elevation on admission -WBC 11.5 most recently, trending downward from yesterday -Ceftriaxone day 2 -Pending blood cultures Hypokalemia: -K+ 3.3 mmol/L this AM -Repleted with oral potassium chloride -Continue to monitor and replete as appropriate Home medications: -Unable to completed med history at this time -Unable to reach family (son) Changes to medications anticipated at discharge:pending Fili Wright PharmJarocho. The information and recommendations contained in this note are based on information available at the time of documentation. [1] Past Medical History: Diagnosis Date Arthritis Rheumatoid (HCC) 1998 Cataract 2013 Coronary Artery Disease Without Angina Pectoris Dementia (HCC) 2023 Dermatitis 2019 Diabetes Mellitus NOS 1998 Headache Unspecified 2016 Malignant Primary Neoplasm (Unknown Site) Unspecified (HCC) 2020 multiple myeloma Other Injury Of Unspecified Body Region 2016 Parkinsonism Unspecified ([facility]) ST Elevation Myocardial Infarction Of Unspecified Site (HCC) 2003 Stone Kidney 2013 documented in this encounter H&P Notes * Sofía Banks M.D. - 09/20/2024 9:55 PM CDT H&P note Chief Complaint: Patient is a 84 y.o. male presents with dehydration and acute kidney injury likely from post obstructive nephropathy. 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 Per report from the ED provider in [place], staff at his nursing facility had noticed that he was becoming extremely lethargic, falling asleep early and not having anything by mouth in the past 48 hours including food and water. His son who was at the bedside at that time reported that his father was not acting like himself and also confirmed decreased level of consciousness. The patient wasunable to provide any additional review of systems. In the emergency department in [place], he was vitally stable and on room air. VBG was unremarkable. CBC with stable hemoglobin and leukocytosis of 16 with left shift. POC glucose 127. BMP with sodium of 147, bicarbonate of 21, anion gap slightly elevated at 17 and creatinine of 2.35 (baselineis 1.60). Magnesium of 2.7 and bilirubin of 1.6. Other liver function tests stable and unremarkable. C-reactive protein elevated 18.8. TSH within normal limits. Blood cultures obtained. Influenza andCOVID swab negative. Urinalysis with bacteria present with negative white blood cells and negative nitrites. Chest x-ray did not show any acute airspace opacities, pleural effusion or pneumothorax. There is a chronic right hemidiaphragm elevation. CT abdomen without IV contrast showed mild left hydronephrosis and severe bladder distention. There was also large hiatal hernia containing stomach portion of duodenum and portion of pancreas. Patient was given one liter of fluids and admitted to [place] as admission could not be accommodated in , , or [place]. At the time of my evaluation, he was wide awake and following all commands. Did have notable expressive aphasia but was very pleasant and asking for something to eat as he felt hungry. Denied having any current pain or nausea. The following portions of the patient's history were reviewed and updated as appropriate: allergies, current medications, family history, medical history, social history, surgical history and problemlist. 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 Not drinking much alcohol now. Drug use: Never Sexual activity: Not Currently Partners: Female Other Topics Concern Not on file Social History Narrative Not on file Social Drivers of Health Food Insecurity: No Food Insecurity (04/22/2024) Hunger Vital Sign Worried About Running Out of Food in the Last Year: Never true Ran Out of Food in the Last Year: Never true Transportation Needs: No Transportation Needs (04/22/2024) PRAPARE - Transportation Lack of Transportation (Medical): No Lack of Transportation (Non-Medical): No Intimate Partner Violence: Not on file Housing Stability: Low Risk (04/22/2024) Housing Stability Housing: Living Situation: I have a steady place to live Allergies[4] current medications[5] Review of Systems: Pertinent items are noted in HPI; all other review of systems was negative. Vitals: Vitals: 09/20/24 2135 BP: 133/89 BP Location: Right arm;Upper Patient Position: Semi-recumbent Pulse: 76 Resp: 16 Temp: 36.5 ??C TempSrc: Temporal SpO2: 96% Weight: 57.9 kg Height: 170.2 cm Physical Exam Constitutional General: He is not in acute distress. Appearance: He is not ill-appearing. HENT Head: Normocephalic and atraumatic. Mouth/Throat: Mouth: Mucous membranes are moist. Pharynx: Oropharynx is clear. No oropharyngeal exudate or posterior oropharyngeal erythema. Eyes Extraocular Movements: Extraocular movements intact. Cardiovascular Rate and Rhythm: Normal rate and regular rhythm. Heart sounds: No friction rub. No gallop. Pulmonary Effort: Pulmonary effort is normal. Breath sounds: Normal breath sounds. No wheezing, rhonchi or rales. Abdominal General: Abdomen is flat. Bowel sounds are normal. There is no distension. Palpations: Abdomen is soft. Tenderness: There is no abdominal tenderness. There is no guarding. Musculoskeletal General: Normal range of motion. Right lower leg: No edema. Left lower leg: No edema. Skin General: Skin is warm and dry. Neurological Mental Status: He is alert. He is disoriented. Cranial Nerves: No dysarthria or facial asymmetry. Comments: Expressive aphasia Psychiatric Attention and Perception: Attention normal. Mood and Affect: Mood normal. Behavior: Behavior is cooperative. Cognition and Memory: Memory is impaired. Diagnostics ECG 12 Lead Result Date: 09/20/2024 Normal sinus rhythm with sinus arrhythmia Normal ECG No previous ECGs available Reviewed by JASVIR [place] CT Abdomen Pelvis without IV Contrast Result Date: 09/20/2024 Narrative: EXAM: CT ABDOMEN PELVIS WITHOUT IV CONTRAST [...] or ureteral calculi . Nonobstructing right renal calculi.Simple appearing cysts bilaterally. Gastrointestinal tract: No wall thickening. Normal caliber large and small bowel. Appendix within normal limits. Colonic diverticulosis without definitive evidenceof acute diverticulitis Peritoneum/Retroperitoneum: No free air or free fluid. No suspicious noduleor mass. Lymph nodes: No lymphadenopathy. Vascular: Normal [...] hemangiomas and/or sequela of prior multiple myeloma. Impression: 1. Mild left hydronephrosis likely secondary to severe bladder distention. 2. Large hiatal hernia containing stomach, portion of duodenum and portion of pancreas. 3. 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 Consider further evaluation with MRI clinically desired DX Chest Portable 1 View Result Date: 09/20/2024 Narrative: EXAM: DX CHEST PORTABLE 1 VIEW Impression: No acute airspace opacities, pleural effusion, or pneumothorax. Chronic right hemidiaphragm elevation and right greater than left basilar atelectasis. Normal heart size. Hiatal hernia. Recent Results (from the past 24 hours) S-TSH (Thyroid-Stimulating Hormone - Sensitive) Collection Time: 09/20/24 11:09 AM Result Value TSH, Sensitive 0.7 CBC with Differential, Blood Collection Time: 09/20/24 11:10 AM Result Value Hemoglobin 13.6 Hematocrit 41.1 Erythrocytes 4.20 (L) MCV 97.9 RBC Distrib Width 12.8 Platelet Count 250 Leukocytes 16.3 (H) Neutrophils 14.54 (H) Lymphocytes 0.49 (L) Monocytes 1.28 (H) Eosinophils <0.04 Basophils <0.04 Comprehensive Metabolic Panel Collection Time: 09/20/24 11:10 AM Result Value Potassium, P 4.2 Sodium, P 147 (H) Chloride, P 109 (H) Bicarbonate, P 21 (L) Anion Gap, P 17 (H) BUN (Blood Urea Nitrogen), P 65 (H) Creatinine 2.35 (H) Estimated GFR (eGFR) 26 (L) Calcium, Total, P 9.7 Glucose, P 139 Protein, Total, P 7.7 Albumin, P 4.8 Aspartate Aminotransferase (AST), P 18 Alkaline Phosphatase, P 63 Alanine Aminotransferase (ALT), P 17 Bilirubin, Total, P 1.6 (H) Lipase Collection Time: 09/20/24 11:10 AM Result Value Lipase, P 38 Lactate Collection Time: 09/20/24 11:10 AM Result Value Lactate, P 1.2 Magnesium Collection Time: 09/20/24 11:10 AM Result Value Magnesium, P 2.7 (H) Blood Gas, Venous, POCT, Blood Collection Time: 09/20/24 11:10 AM Result Value pH, Venous, POCT, B 7.35 pCO2, Venous, POCT, B 41 pO2, Venous, POCT, B 37 HCO3, Venous, POCT, B 22 Base Excess, Venous, POCT, B -3 O2 Saturation, Venous, POCT, B 68 Sample Type, Blood Gas, POCT BAILEE Urinalysis with Microscopic if Indicated: Urine, Midstream Collection Time: 09/20/24 11:11 AM Result Value Source Urine, Urine, Midstream Clarity Clear Color Yellow Blood Small (A) Nitrite Negative Leukocyte Esterase Negative Protein 100 (A) Glucose Negative Ketones, QI(U) Negative Bilirubin Negative pH 5.5 Specific [place] 1.025 Urobilinogen 0.2 Microscopic Manual Collection Time: 09/20/24 11:11 AM Result Value White Blood Cells Occ-3 Red Blood Cells 11-20 (A) Dysmorphic Red Blood Cells <=25 Squamous Cells Occ-3 Bacteria Present (A) CRP (C-Reactive Protein) Collection Time: 09/20/24 11:35 AM Result Value C-Reactive Protein (CRP), P 18.8 (H) Glucose, POCT Collection Time: 09/20/24 11:37 AM Result Value Glucose, POCT, B 127 Influenza A/B, SARS CoV-2, PCR, Rapid Symptomatic Collection Time: 09/20/24 12:00 PM Specimen: Nasopharynx; Swab Result Value Influenza A, PCR, Rapid, V Negative Influenza B, PCR, Rapid, V Negative SARS CoV-2, PCR, Rapid, V Undetected Infl A/B, SARS CoV-2, PCR, Source Swab, Nasopharynx ASSESSMENT / PLAN #1 Dehydration #2 Poor oral intake #3 Hypovolemic Hypernatremia #4 Acute Kidney Injury Secondary to Post-obstructive Nephropathy #5 Anion Gap Metabolic acidosis #6 Hydronephrosis #7 Leukocytosis - Initially presented with 48 hours of progressively worsening generalized weakness, decreased level of consciousness, no oral intake - Labs on admission were significant for leukocytosis of 16.3 with left shift - CRP of 18.8 - Creatinine 2.35 with EGFR of 26 and serum bicarbonate of 21 - Serum sodium 147, likely suffering from hypovolemic hypernatremia in the setting of decreased oral intake - TSH was within normal limits - COVID-19/influenza/RSV PCR negative - Urinalysis did show evidence of bacteriuria but no white blood cells, negative leukocyte esteraseand negative nitrites - CT abdomen pelvis did show evidence of left hydronephrosis with severe bladder distention; post Riley catheter placement 1.7 L of urine output appreciated. This has likely contributing to patient'sacute kidney injury - Started on tamsulosin 0.4 mg daily - Given leukocytosis and elevated CRP, without clear source of infection we will start on IV Ceftriaxone while awaiting blood culture results -bedside nursing swallow assessment - Continuous IV fluids - Strict I/O #8 Frontotemporal Dementia #9 Expressive Aphasia #10 Parkinson's Disease #11 Altered Level of Consciousness -Patient was last assessed by Neurologist in July. He was diagnosed with aphasic dementia and axial parkinsonism with severe postural instability - eyeglasses and hearing aids during the day - sleep enhancement with melatonin PRN #12 Multiple Myeloma #13 Anemia, iron deficiency and CKD - Patient has been on observation since December 2023 - Labs on admission showed serum calcium within normal limits at 9.7, which is reassuring in the setting of dehydration - Continue with regular outpatient follow up with Hematology Code Status: DNR/DNI VTE prophylaxis: Heparin SQ Electronically signed by: Sofía Banks M.D. 09/20/24 10:22 PM CDT [1] Past Medical History: Diagnosis Date Arthritis Rheumatoid (HCC) 1998 Cataract 2013 Coronary Artery Disease Without Angina Pectoris Dementia (HCC) 2023 Dermatitis 2019 Diabetes Mellitus NOS 1998 Headache Unspecified 2015 Malignant Primary Neoplasm (Unknown Site) Unspecified (HCC) 2019 multiple myeloma Other Injury Of Unspecified Body Region 2016 Parkinsonism Unspecified (HCC) ST Elevation Myocardial Infarction Of Unspecified Site (HCC) 2003 Stone Kidney 2013 [2] Past Surgical History: Procedure Laterality Date INTERNAL FIXATION FEMUR Right OTHER SURGICAL HISTORY 2016 Treat broken femur [3] Family History Problem Relation Name Age of Onset Stroke Father Bertin Greco Stroke Father Bertin Greco Stroke Father Bertin Greco [4] Allergies Allergen Reactions Itraconazole Rash Rivaroxaban Other (see comments) paralysis Sulfa (Sulfonamide Antibiotics) Rash sars [5] No current outpatient medications on file. documented in this encounter Consult Notes * Zo Trinidad M.S.W., L.I.C.S.W. - 09/22/2024 1:49 PM CDTAssociated Order(s): IP CONSULT TO CARE MANAGEMENT; IP CONSULT TO CARE MANAGEMENT Psychosocial Assessment SUBJECTIVE DEMOGRAPHIC INFORMATION Referral Source: Nursing Referral Reason: Discharge Planning and Full Psychosocial Assessment Person(s) present during interview: interview completed via telephone with Nurse, Luz Marina ([phone]) at [facility] and son Pablo ([phone]). Previous Psychosocial Assessment: No Primary care clinic and provider: No care team primary care physician to display They were advised of the various topics that will be assessed during this evaluation. They consented to proceed. The information provided in the assessment is based on review of the medical record aswell as the interview. They were advised that the content of this interview will be shared with the health care team. It was discussed that staff are mandated reporters and they reported understanding. 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 Social Drivers of Health Transportation Needs: No Transportation Needs (09/20/2024) PRAPARE - Transportation Lack of Transportation (Medical): No Lack of Transportation (Non-Medical): No Housing Stability: Low Risk (09/20/2024) Housing Stability Housing: Living Situation: I have a steady place to live Food Insecurity: No Food Insecurity (09/20/2024) Hunger Vital Sign Worried About Running Out of Food in the Last Year: Never true Ran Out of Food in the Last Year: Never true Utilities: Not At Risk (09/20/2024) [facility] Utilities Threatened with loss of utilities: No Intimate Partner Violence: Not At Risk (09/20/2024) Humiliation, Afraid, Rape, and Kick questionnaire Fear of Current or Ex-Partner: No Emotionally Abused: No Physically Abused: No Sexually Abused: No ENVIRONMENTAL SUPPORTS Current Living Situation: Patient lives in a memory care facility, [facility] Anticipated modifications to the patient's home environment: None FUNCTIONAL STATUS (ADL's and IADL's) Dressing: independent but needs verbal cueing Feeding: independent Bathing: needs assistance Grooming: needs assistance, verbal cueing Toileting: independent Transfer to/from Bed, Chair, Etc.: independent Mobility: requires aide of device- uses a walker Meal Prep: dependent Medication Setup/Administration: dependent Telephone Use: dependent Housekeeping: dependent Shopping: dependent Managing Finances: dependent It is anticipated that the patient will need assistance with eating, bathing, dressing, grooming/hygiene, transfers to/from bed, chair, etc., mobility, meal preparation, medication setup/administration, telephone use, housekeeping, shopping, managing finances, and transportation use (drive car, usetaxi/bus) ASSISTIVE DEVICES Patient has the following equipment: eyeglasses, hearing aid/s, and walker - four wheeled Patient anticipates potentially needing the following additional equipment: none Transportation needs: support from family/friends, son, Pablo can transport. FORMAL AND INFORMAL RESOURCES Support from family. FINANCES/INSURANCE Primary insurance: MEDICARE A AND B Secondary insurance: [employer] Financial concerns: No OBJECTIVE Suicide Risk and Safety Risk Assessment Suicidal: No Homicidal: No Mental Status Unable to assess. Current Stressors Current hospitalization Coping Skills/Strengths Family support. ASSESSMENT / PLAN DISCUSSION Social work introduced herself, her role as a social media specialist, and reason for consult via telephone to both Pablo, son, and Luz Marina, nurse at [facility]. This mortgage underwriter was able to gather base line functional skill levels from Luz Marina including that patient uses a walker at baseline. Luz Marina stated that patient is typically a private person and tends to prefer to remain in his room rather than to socialize. Patient performs many of his cares with cueing from facility staff. Pablo stated that he is able to transport his father back to the care facility in [place], when he is medically ready. Pablo stated that the best phone number to contact him is at: [phone]. A reconnect was sent to [facility]: Destination - Admitted Since 09/20/2024 Service Provider Request Status Services Address Phone Fax Patient Preferred [facility] Pending - Request Sent -- [facility] [address] [facility] [id number] -- -- Destination - Episodes Includes Destination providers with selected services from the active episodes listed below IMPRESSION Unable to assess. INTERVENTIONS 1. Psychosocial assessment 2. Education regarding role of social work 3. Social work sent a re-connect to [facility] ([phone]). 4. Initial discussion of discharge planning PLAN 1. Patient's son, Pablo, can transport upon discharge ([phone]). 2. Social work will remain available for discharge planning needs. Anticipated barriers to the transition of care/plan: None Juliana Michelet Trinidad, SilviaS.W. 09/22/24 * Gianna Edmondson P.T. - 09/21/2024 9:54 AM CDT Physical Therapy Inpatient Evaluation/Treatment SUBJECTIVE Patient's Name: Adi Greco Referring/Attending Provider: Iris Pizano P.A.-C. 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 Prior Function/Occupational Profile: Prior Mobility/Functional Transfers Level of [place]: Modified independent Gait Devices/Wheelchair Used: Front wheeled walker Gait Devices/Wheelchair Used Comments: Questioned patient's accuracy in answering questions about his functional mobility due to decreased cognition Prior Function/Occupational Profile Dominant Hand: Right Lives With: Alone Receives Help From: Facility staff ADL Assistance: Independent ADL Assistance Comments: Unsure of the accuracy of patient's responses due to decreased cognition and no family present. IADL/Homemaking Assistance: Required assistance Driving: Does not drive Occupational Role: Retired Home Living Type of Home: Assisted living facility ([place], [place]) Home Layout: One level Home Access: Level entry Home Living Comments: Pt is quesrtionable historian and PLOF will need to be confirmed with famiy or facility. Family/Caregiver Present: No Patient/Caregiver Goals: Unable due to decreased cognition Additional Staff Present During Session: Occupational therapist Activity Orders (From admission, onward) Start Ordered 09/20/242121 Activity/Position: Up to Chair, Up with Assistance; Other (comment); Ambulate as muchas possible considering previous activity level and physical functioning. Resume activity level following recovery from procedure and/or tests unless otherwise ... Until discontinued Question Answer Comment Activity Level: Up to Chair Activity Level: Up with Assistance Ambulation Goals: Other (comment) Ambulation goals comment: Ambulate as much as possible considering previous activity level and physical functioning. Resume activity level following recovery from procedure and/or tests unless otherwise directed. Up to chair goals: With meals Restrictions/Precautions: None Brace/Device: None 09/20/24212009/20/242121 Fall precautions Continuous 09/20/242120 Fall Risk (65 and older) Fall in the last 12 months: No Are you fearful of falling?: No Fall Risk Comments: Unsure of the accuracy of patient's responses due to decreased cognition, but he did indicate subjectively no falls and no fear of falling. OBJECTIVE No pain behavior observed AM-PAC Inpatient Short Form: AM-PAC Basic Mobility (V.2) How much help from another person do you currently need???If the patient hasn't done an activity recently, how much help from another person do you think he/she would needif he/she tried? 1. Turning from your back to your side while in a flat bed without using bedrails?: A Little 2. Moving from lying on your back to sitting on the side of a flat bed without using bedrails?: A Little 3. Moving to and from a bed to a chair (including a wheelchair)?: A Little 4. Standing up from a chair using your arms (e.g., wheelchair, or bedside chair)?: A Little 5. To walk in hospital room?: A Little 6. Climbing 3-5 steps with a railing?: A Little AM-PAC Basic Mobility (V.2) Raw Score: 18 [facility] Basic Mobility (V.2) Standardized Score: 41.05 Interpretation: Based on scoring guidelines using the raw score value: Those going to home had an average score at or above 18 Those going to facility had an average score at or below 17 Clinicians answer the [facility] Inpatient Short Form based on observed patient activity and/or clinical judgment (ie. patient can be scored without physically performing each activity) Cognition Arousal/Alertness: Appropriate responses to stimuli Initiation: No difficulty with initiation Orientation: Disoriented to place, Disoriented to situation Following Commands: One Step Commands One Step Commands: Follows one step commands consistently Safety/Judgment: Impairments noted Cognition Comments: Patient currently resides in memory care. Balance Static Sitting-Balance: Good (Maintains balance without support), Fair (Maintains balance with handheld/contact guard assistance) Dynamic Sitting-Balance: Good (Maintains balance without support), Fair (Maintains balance with handheld/contact guard assistance) Static Standing-Balance: Fair (Maintains balance with handheld/contact guard assistance) Dynamic Standing-Balance: Fair (Maintains balance with handheld/contact guard assistance) Balance Comments: Initially upon sitting on the edge of the bed, patient was somewhat unsteady and required upper extremity support to maintain balance, as he continued to sit this improved. Patient does require upper extremity support when standing. Supervision with static balance while standing at sink. Bed Mobility - Supine to Sit # of Assistants: 1 Level of Assistance: Supervision/Set-up Device: Bed rail, Head of bed elevated Sit to Stand Transfers # of Assistants: 1 Transfer Surface: Bed, Toilet/Commode Transfer Equipment: Front wheeled walker, Gait belt Level of Assistance: Contact guard assistance Assessment/Delivery: Assessed, Instructed Comments: Cues for proper hand placement. Patient demonstrated impulsivity. Stand to Sit Transfers # of Assistants: 1 Transfer Surface: Chair, Toilet/Commode Transfer Equipment: Front wheeled walker, Gait belt Level of Assistance: Contact guard assistance, Supervision/set-up Assessment/Delivery: Assessed, Instructed Comments: Cues for proper hand positioning Strength - Lower Extremity Screen: Addressed, no concerns noted Strength - Lower Extremity Screen Comments: Within functional limits bilaterally with activity. ROM - Lower Extremity Screen: Addressed, no concerns noted Team Communication: Discussed patient's care with OT, Patient's nurse was contacted and patient's status was discussed Co-treatment with: Occupational Therapy Upon arrival in room patient was found semi-herring's position in bed, needs including call savage/light in reach, alarm on. Following treatment patient was left seated in the chair, needs including call savage/light in reach, alarm on, nursing notified. Assessment Discharge Considerations: Barriers to Discharge Home: None Discharge Therapy Needs - PT: Ongoing skilled physical therapy Level of Care Needed - PT: Assistance with transfers (Comment), Assistance with walking and moving around the home, Assistance with bed mobility, Physical assistance needed, Cognitive assistance needed Clinical Impression: Patient is a 84 y.o. who has been hospitalized 1 day(s) with an admitting diagnosis of: Failure Renal Acute (Acute Kidney Injury) [N17.9]. Prior to hospitalization patient living at its a memory care unit. Unsure of his baseline functioning. He did appear to be familiar with use of the front wheeled walker. Currently, patient presents with impairments including decreased balance and mobility/strength resulting in the following functional deficits: Requiring assistance for transfers and gait. Rehab potential: Patient has Good potential to achieve established physical therapy goals within the time frame outlined below. Therapy findings and recommendations were discussed with nursing and occupational therapist. Due to patient's decreased cognition, unsure if patient is completing activities at baseline. Will have Physical therapy check with patient tomorrow, may need to contact family in regard to patient'sprevious status. Patient is from memory care and if patient is completing activities at baseline, patient can return to memory care. Nursing Recommendations: Ambulate within room with front wheeled walker and assist of 1 From a physical therapy perspective, the level of care below has been recommended for Adi Greco after hospital discharge. This level of care is based on their functional abilities during today's session. This may change throughout the hospital course and will be updated as appropriate. INTERDISCIPLINARY PATIENT EDUCATION RECORD Education provided to: Patient Assessment of learning challenges of patient/family:Barriers Including dementia Learning preferences: Verbal, Written, Demonstration, and Handout Topic of education: Gait and transfers Current knowledge assessment:Some Understanding Teaching method: Verbal Outcomes and reinforcement: Verbalizes understanding and Demonstrates understanding Comorbid Conditions: Cognitive/memory disorder, Other (Comment), Cancer (Parkinson's, multiple myeloma, dementia) Personal Factors: Cognition, Needs assistive device, Age Clinical Presentation: Evolving Examination elements: 3 Clinical Decision Making: Moderate complexity clinical decision making Functional Goals and Timeframes: PT Goal #1: Patient will demonstrate pivot transfer with supervision with use of front wheeled walker to decrease caregivers load in 4-5 sessions PT Goal #2: Patient will ambulate with supervision 30 m with front wheeled walker to decrease caregivers load in 4-5 sessions Plan Therapy Attestation: Physical Therapy Attestation Statement: Patient unable to verbalize agreement to the plan of care and goals due to mental status or level of consciousness, no family present to consult. When/if appropriate, therapy will reassess patient's agreement. Plan: Plan of care initiated PT Frequency: PT Frequency: 6 times per week PT Duration: Until goals are met or hospital discharge Inpatient PT Received On Date: 09/21/24 Requires Inpatient Follow-Up: Yes Next Inpatient Appointment: 09/22/24 Plan for next session: Gait with front wheeled walker, possibly balance exercises, transfers. 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 - 09/21/2024 8:20 AM CDT Occupational Therapy Inpatient Evaluation/Treatment SUBJECTIVE Patient's Name: Adi Greco Referring/Attending Provider: Iris Pizano P.A.-C. 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 Prior Function/Occupational Profile: Prior Mobility/Functional Transfers Level of [place]: Modified independent Gait Devices/Wheelchair Used: Front wheeled walker Prior Function/Occupational Profile Dominant Hand: Right Lives With: Alone Receives Help From: Facility staff ADL Assistance: Independent IADL/Homemaking Assistance: Required assistance Driving: Does not drive Occupational Role: Retired Home Living Type of Home: Assisted living facility (memory care) Home Layout: One level Home Access: Level entry Home Living Comments: Pt is quesrtionable historian and PLOF will need to be confirmed with famiy or facility. Family/Caregiver Present: No Patient Comments: 0/10 pain Activity Orders (From admission, onward) Start Ordered 09/20/242121 Activity/Position: Up to Chair, Up with Assistance; Other (comment); Ambulate as muchas possible considering previous activity level and physical functioning. Resume activity level following recovery from procedure and/or tests unless otherwise ... Until discontinued Question Answer Comment Activity Level: Up to Chair Activity Level: Up with Assistance Ambulation Goals: Other (comment) Ambulation goals comment: Ambulate as much as possible considering previous activity level and physical functioning. Resume activity level following recovery from procedure and/or tests unless otherwise directed. Up to chair goals: With meals Restrictions/Precautions: None Brace/Device: None 09/20/24212009/20/242121 Fall precautions Continuous 09/20/242120 Precautions Other Precautions: Fall risk, cognition deficits, aphasic Parkinson's Fall Risk (65 and older) Fall in the last 12 months: No Are you fearful of falling?: No OBJECTIVE Pain Rating: no pain reported [facility] Inpatient Short Form: Putting on and taking off regular lower body clothing?: A Little Putting on and taking off regular upper body clothing?: None Taking care of personal grooming such as brushing teeth?: None Bathing (including washing, rinsing, drying)?: A Little Toileting, which includes using toilet, bedpan, or urinal?: A Little Eating meals?: None Daily Activities Raw Score (max 24): 21 Daily Activities Standardized Score: 44.27 Interpretation: Based on scoring guidelines using the raw score value: Those going to home had an average score at or above 18 Those going to facility had an average score at or below 17 Clinicians answer the [facility] Inpatient Short Form based on observed patient activity and/or clinical judgement (ie. patient can be scored without physically performing each activity) Cognition Cognitive assessment method: Therapist observations Arousal/Alertness: Appropriate responses to stimuli Initiation: No difficulty with initiation Orientation: Disoriented to place, Disoriented to situation Following Commands: One Step Commands One Step Commands: Follows one step commands consistently Safety/Judgment: Impairments noted Impulsivity: Moderate Cognition Comments: Patient currently resides in memory care. Activity Tolerance Endurance: Tolerates 10-20 minutes of activity Standing Tolerance: 2 min Balance Static Sitting-Balance: Good (Maintains balance without support) Dynamic Sitting-Balance: Good (Maintains balance without support) Static Standing-Balance: Fair (Maintains balance with handheld/contact guard assistance) Dynamic Standing-Balance: Fair (Maintains balance with handheld/contact guard assistance) Balance Comments: 2ww Strength - Upper Extremity Screen: Addressed, no concerns noted ROM - Upper Extremity Screen: Addressed, no concerns noted LE Dressing LE Dressing Location: Other (Comment) (Seated on toilet) LE Dressing Delivery: Assessed, Instructed, Therapist Assisted LE Dressing Items Included: Underwear/Adult incontinence briefs LE Dressing Level of Assistance: Moderate assistance LE Dressing Comments: Assisted catheter bag through brief and assisted pulling up over hips. Toileting Toileting Location: Toilet Toileting Delivery: Assessed, Instructed, Therapist Assisted Toileting Adaptive Equipment: Grab bars Toileting Level of Assistance: Maximal assistance Toileting Comments: Patient had bowel incontinent episode and required assist for hygiene. Bed Mobility - Supine to Sit Level of Assistance: Supervision/Set-up Device: Bed rail, Head of bed elevated Cuing: Verbal Sit to Stand Transfers # of Assistants: 1 Transfer Surface: Bed, Toilet/Commode Transfer Equipment: Front wheeled walker, Gait belt Level of Assistance: Supervision/set-up, Contact guard assistance Assessment/Delivery: Assessed, Instructed Comments: Patient cued for hand placement. Patient demonstrated impulsivity. Pt was SBA for hand hygiene at sink. Stand to Sit Transfers # of Assistants: 1 Transfer Surface: Chair, Toilet/Commode Transfer Equipment: Front wheeled walker, Gait belt Level of Assistance: Supervision/set-up Assessment/Delivery: Assessed INTERDISCIPLINARY PATIENT EDUCATION RECORD Education provided to: Patient Assessment of learning challenges of patient/family:Barriers Including cognitive deficits Learning preferences: Verbal Topic of education: -Fall prevention -Safe transfer techniques , OT role in acute setting Current knowledge assessment:Some Understanding Teaching method: Verbal and Demonstration Outcomes and reinforcement: Verbalizes understanding and requires further training Team Communication: Patient's nurse was contacted and patient's status was discussed, Discussed patient's care with PT Upon arrival in room patient was found semi-herring's position in bed, needs including call savage/light in reach, alarm on. Following treatment patient was left seated in the chair, needs including call savage/light in reach, alarm on. Assessment Discharge Considerations: Barriers to Discharge Home: None Discharge Therapy Needs - OT: No further skilled therapy Level of Care Needed - OT: Assistance with meal preparation, Assistance with financial administration officer, Assistance with medication set up/administration, Assistance with housekeeping, Assistance with shopping, Assistance with showering/bathing, Assistance with toileting, Assistance with dressing Clinical Impression: Patient is a 84 y.o. who was admitted to the hospital with a diagnosis of: Failure Renal Acute (Acute Kidney Injury) [N17.9]. Prior to hospitalization patient was completing daily activities at [facility]. PLOF is unknown due to family not available and patient poor historian due to dementia. Further clarification for PLOFbelow be made prior to discharge.. Currently, patient presents with limitations including decreasedbalance, generalized weakness, reduced activity tolerance. Functional deficits: Assist of 1 to complete self cares safely. From an occupational therapy perspective, patient is performing self cares close to baseline level likely. PLOF as unknown and will need clarification. At current functional status, patient is an assist of 1 and 1 capable caregiver would be able to provide his needs. It is likely patient will be able to return to memory care at current functional status. Rehab potential: Patient has good potential to achieve established occupational therapy goals within the time frame outlined below. Education was provided regarding evaluative findings, diagnosis, prognosis, potential risks and benefits of rehabilitation interventions. Therapy findings and recommendations were discussed with pt and nurse. The treatment plan and discharge recommendations may be modified based upon pt response to treatment. Comorbid Conditions: Cognitive/memory disorder, Other (Comment) (Parkinson's) Personal Factors: Cognition, Needs assistive device Occupational Profile and History review: Expanded Performance Deficits: 3 - 5 performance deficits Evaluation Complexity: Moderate Functional Goals and Timeframes: OT Goal #1: Patient will complete all aspects of toileting with modified independence using 2 WW. OT Goal #1 Status: Progressing OT Goal #2: Patient will increase stand tolerance to 5 minutes in order to better complete standingself cares. OT Goal #2 Status: Progressing OT Goal #3: Patient will complete all aspects lower body dressing using AE as necessary with modified independence using 2 WW. OT Goal #3 Status: Progressing Plan Therapy Attestation: Patient agrees with the plan of care and goals. OT Frequency: OT Amount: 1 visit per day OT Frequency: 5 times per week OT Duration: Until goals are met or hospital discharge Inpatient OT Received On Date: 09/21/24 Requires Inpatient Follow-Up: Yes Next Inpatient Appointment: 09/22/24 Plan for next session: ADLs, increase stand duration Plan: Plan of care initiated Treatment interventions may include: Treatment Interventions: Therapeutic exercise, Therapeutic functional activity, Self-care/home management Time Spent with Patient Evaluations OT Eval - Mod Complexity: 15 min Therapeutic Interventions Home Management Training (min): 10 min Time Tracking Total Timed Units (min): 10 min Total Treatment Time (min): 25 min [1] Patient Active Problem List Diagnosis Multiple Myeloma Not Having Achieved Remission (HCC) Other Assisted Current Drug Therapy Anemia 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) Goal: Risk for Compromised Skin Integrity-Other Apprentice Plumber(s) Outcome: Adequate for Discharge Problem: PAIN - ADULT Goal: PT VERBALIZES/DEMONSTRATES ADEQUATE COMFORT LEVEL OR BASELINE Outcome: Adequate for Discharge Problem: KNOWLEDGE DEFICIT Goal: Patient/family/caregiver demonstrates understanding of disease process, treatment plan, medications, and discharge instructions Outcome: Adequate for Discharge Problem: INFECTION - ADULT Goal: Absence of infection during hospitalization Outcome: Adequate for Discharge Problem: SKIN/TISSUE INTEGRITY Goal: Skin/Tissue integrity maintained or improved Outcome: Adequate for Discharge Goal: Oral and Nasal mucous membranes remain intact Outcome: Adequate for Discharge Problem: SAFETY ADULT Goal: Maintain a safe environment Outcome: Adequate for Discharge Problem: DISCHARGE PLANNING Goal: Patient discharge needs identified Outcome: Adequate for Discharge Problem: Risk for Compromised Skin Integrity-Ceasar Nutrition Score 1 or 2 Goal: Improve nutritional status to maintain or improve skin integrity. Outcome: Adequate for Discharge Problem: Risk for Compromised Skin Integrity-Ceasar Mobility Score 1 or 2 Goal: Achieve optimal mobility to maintain or improve skin integrity. Outcome: Adequate for Discharge Problem: Risk for Compromised Skin Integrity-Ceasar Sensory Perception Score 1, 2, or 3 Goal: Manage sensory perception deficits to maintain and/or improve skin integrity. Outcome: Adequate for Discharge Problem: Risk for Compromised Skin Integrity-Ceasar Friction and Shear Score 1 or 2 Goal: Minimize friction and/or shear to maintain or improve skin integrity. Outcome: Adequate for Discharge Problem: Risk for Compromised Skin Integrity-Ceasar Activity Score 1 or 2 Goal: Achieve optimal activity to maintain or improve skin integrity. Outcome: Adequate for Discharge Problem: SAFETY ADULT - RISK FOR FALL AND OR FALL INJURY Goal: Patient remains free from fall/fall injury Outcome: Adequate for Discharge Problem: Risk for Compromised Skin Integrity-Ceasar Activity Score 3 Goal: Achieve optimal activity to maintain or improve skin integrity. Outcome: Adequate for Discharge Problem: GENITOURINARY - ADULT Goal: Optimize urinary function Outcome: Adequate for Discharge Problem: MUSCULOSKELETAL - ADULT Goal: Return mobility to safest level of function Outcome: Adequate for Discharge Goal: Optimize ADL status Outcome: Adequate for Discharge Shift Goals: Discharge Identify possible barriers to meeting goals/advancing plan of care: none End of Shift Summary: Pt is alert to self only. VSS on room air - denies pain. Pt is up with one assist. Discharge paperwork sent along with Pablo (Son) who is transporting patient. Called facility 2 times for N2N report - left a voicemail with a call back number. * Em He R.N. - 09/24/2024 4:59 AM CDT Shift Goals: Clinical Goals for the Shift: pt remains VSS/maintains safety Identify possible barriers to meeting goals/advancing plan of care: NONE End of Shift Summary: Pt oriented to self, disoriented to time and place. Pt maintains O2 saturations on room air. Pt is up assist of one with GBW. Pt riley catheter remains in place with yellow/straw clear output. Pt to d/c with riley in place, f/u with urology as outpatient. Pt's son expected to transport back to [facility] at noon today. AVS to be sent along with son. They would also like provider notes from this hospital stay and any pertinent labs or results be faxed to [phone]. Pt denies c/o pain or unmet needs at this time. Problem: Risk for Compromised Skin Integrity-Other Apprentice Plumber(s) Goal: Risk for Compromised Skin Integrity-Other Apprentice Plumber(s) Outcome: Progressing Problem: PAIN - ADULT Goal: PT VERBALIZES/DEMONSTRATES ADEQUATE COMFORT LEVEL OR BASELINE Outcome: Progressing Problem: KNOWLEDGE DEFICIT Goal: Patient/family/caregiver demonstrates understanding of disease process, treatment plan, medications, and discharge instructions Outcome: Progressing Problem: INFECTION - ADULT Goal: Absence of infection during hospitalization Outcome: Progressing Problem: SKIN/TISSUE INTEGRITY Goal: Skin/Tissue integrity maintained or improved Outcome: Progressing Goal: Oral and Nasal mucous membranes remain intact Outcome: Progressing Problem: SAFETY ADULT Goal: Maintain a safe environment Outcome: Progressing Problem: DISCHARGE PLANNING Goal: Patient discharge needs identified Outcome: Progressing Problem: Risk for Compromised Skin Integrity-Ceasar Nutrition Score 1 or 2 Goal: Improve nutritional status to maintain or improve skin integrity. Outcome: Progressing Problem: Risk for Compromised Skin Integrity-Ceasar Mobility Score 1 or 2 Goal: Achieve optimal mobility to maintain or improve skin integrity. Outcome: Progressing Problem: Risk for Compromised Skin Integrity-Ceasar Sensory Perception Score 1, 2, or 3 Goal: Manage sensory perception deficits to maintain and/or improve skin integrity. Outcome: Progressing Problem: Risk for Compromised Skin Integrity-Ceasar Friction and Shear Score 1 or 2 Goal: Minimize friction and/or shear to maintain or improve skin integrity. Outcome: Progressing Problem: Risk for Compromised Skin Integrity-Ceasar Activity Score 1 or 2 Goal: Achieve optimal activity to maintain or improve skin integrity. Outcome: Progressing Problem: Risk for Compromised Skin Integrity-Ceasar Activity Score 3 Goal: Achieve optimal activity to maintain or improve skin integrity. Outcome: Progressing Problem: SAFETY ADULT - RISK FOR FALL AND OR FALL INJURY Goal: Patient remains free from fall/fall injury Outcome: Progressing Problem: GENITOURINARY - ADULT Goal: Optimize urinary function Outcome: Progressing Problem: MUSCULOSKELETAL - ADULT Goal: Return mobility to safest level of function Outcome: Progressing Goal: Optimize ADL status Outcome: Progressing * Lien Torres R.N. - 09/23/2024 5:01 PM CDT Shift Goals: Clinical Goals for the Shift: VSS, pain management, maintain safety Identify possible barriers to meeting goals/advancing plan of care: medical End of Shift Summary: VSS on RA, denied pain, up with 1 A GBW, riley maintained with adequate output, incontinent of bowel movements, 1:1 sitter discontinued at 1120, safety maintained with frequent rounding and bed alarm, bed in low and locked position and call light within reach Problem: Risk for Compromised Skin Integrity-Other Apprentice Plumber(s) Goal: Risk for Compromised Skin Integrity-Other Apprentice Plumber(s) Outcome: Progressing Problem: PAIN - ADULT Goal: PT VERBALIZES/DEMONSTRATES ADEQUATE COMFORT LEVEL OR BASELINE Outcome: Progressing Problem: KNOWLEDGE DEFICIT Goal: Patient/family/caregiver demonstrates understanding of disease process, treatment plan, medications, and discharge instructions Outcome: Progressing Problem: INFECTION - ADULT Goal: Absence of infection during hospitalization Outcome: Progressing Problem: SKIN/TISSUE INTEGRITY Goal: Skin/Tissue integrity maintained or improved Outcome: Progressing Goal: Oral and Nasal mucous membranes remain intact Outcome: Progressing Problem: SAFETY ADULT Goal: Maintain a safe environment Outcome: Progressing Problem: DISCHARGE PLANNING Goal: Patient discharge needs identified Outcome: Progressing Problem: Risk for Compromised Skin Integrity-Ceasar Nutrition Score 1 or 2 Goal: Improve nutritional status to maintain or improve skin integrity. Outcome: Progressing Problem: Risk for Compromised Skin Integrity-Ceasar Mobility Score 1 or 2 Goal: Achieve optimal mobility to maintain or improve skin integrity. Outcome: Progressing Problem: Risk for Compromised Skin Integrity-Ceasar Sensory Perception Score 1, 2, or 3 Goal: Manage sensory perception deficits to maintain and/or improve skin integrity. Outcome: Progressing Problem: Risk for Compromised Skin Integrity-Ceasar Friction and Shear Score 1 or 2 Goal: Minimize friction and/or shear to maintain or improve skin integrity. Outcome: Progressing Problem: Risk for Compromised Skin Integrity-Ceasar Activity Score 1 or 2 Goal: Achieve optimal activity to maintain or improve skin integrity. Outcome: Progressing Problem: SAFETY ADULT - RISK FOR FALL AND OR FALL INJURY Goal: Patient remains free from fall/fall injury Outcome: Progressing Problem: Risk for Compromised Skin Integrity-Ceasar Activity Score 3 Goal: Achieve optimal activity to maintain or improve skin integrity. Outcome: Progressing Problem: GENITOURINARY - ADULT Goal: Optimize urinary function Outcome: Progressing Problem: MUSCULOSKELETAL - ADULT Goal: Return mobility to safest level of function Outcome: Progressing Goal: Optimize ADL status Outcome: Progressing * Carolyn Limon R.N. - 09/23/2024 5:21 AM CDT Problem: GENITOURINARY - ADULT Goal: Optimize urinary function Outcome: Progressing Problem: MUSCULOSKELETAL - ADULT Goal: Return mobility to safest level of function Outcome: Progressing Goal: Optimize ADL status Outcome: Progressing Shift Goals: No removal of lines/tubes, adequate urinary output Identify possible barriers to meeting goals/advancing plan of care: Confusion, comorbidities End of Shift Summary: Patient vitals WNL. No complaints of pain. Patient had multiple loose stools overnight. Adequate urinary output. Ambulating stand by assist. Remains 1:1 for safety and to keep riley in place. * Karolina Gold R.N. - 09/22/2024 6:23 PM CDT Problem: Risk for Compromised Skin Integrity-Other Apprentice Plumber(s) Goal: Risk for Compromised Skin Integrity-Other Apprentice Plumber(s) Outcome: Progressing Problem: PAIN - ADULT Goal: PT VERBALIZES/DEMONSTRATES ADEQUATE COMFORT LEVEL OR BASELINE Outcome: Progressing Problem: KNOWLEDGE DEFICIT Goal: Patient/family/caregiver demonstrates understanding of disease process, treatment plan, medications, and discharge instructions Outcome: Progressing Problem: INFECTION - ADULT Goal: Absence of infection during hospitalization Outcome: Progressing Problem: SKIN/TISSUE INTEGRITY Goal: Skin/Tissue integrity maintained or improved Outcome: Progressing Goal: Oral and Nasal mucous membranes remain intact Outcome: Progressing Problem: SAFETY ADULT Goal: Maintain a safe environment Outcome: Progressing Problem: DISCHARGE PLANNING Goal: Patient discharge needs identified Outcome: Progressing Problem: Risk for Compromised Skin Integrity-Ceasar Nutrition Score 1 or 2 Goal: Improve nutritional status to maintain or improve skin integrity. Outcome: Progressing Problem: Risk for Compromised Skin Integrity-Ceasar Mobility Score 1 or 2 Goal: Achieve optimal mobility to maintain or improve skin integrity. Outcome: Progressing Problem: Risk for Compromised Skin Integrity-Ceasar Sensory Perception Score 1, 2, or 3 Goal: Manage sensory perception deficits to maintain and/or improve skin integrity. Outcome: Progressing Problem: Risk for Compromised Skin Integrity-Ceasar Friction and Shear Score 1 or 2 Goal: Minimize friction and/or shear to maintain or improve skin integrity. Outcome: Progressing Problem: Risk for Compromised Skin Integrity-Ceasar Activity Score 1 or 2 Goal: Achieve optimal activity to maintain or improve skin integrity. Outcome: Progressing Problem: SAFETY ADULT - RISK FOR FALL AND OR FALL INJURY Goal: Patient remains free from fall/fall injury Outcome: Progressing Problem: Risk for Compromised Skin Integrity-Ceasar Activity Score 3 Goal: Achieve optimal activity to maintain or improve skin integrity. Outcome: Progressing Shift Goals: Safety, Riley placement, mobility Identify possible barriers to meeting goals/advancing plan of care: acuity of illness End of Shift Summary: Took over care at 1500. Pt is alert to self only. VSS on room air - denies pain when asked. Pt is up with one assist, gait belt, and walker. Pt experiencing urinary retention - riley catheter placed and draining freely. 1:1 Observation used to keep PIV and riley in place. * Brandon Hawkins RCeferinoNCeferino - 09/22/2024 6:48 AM CDT Problem: Risk for Compromised Skin Integrity-Other Apprentice Plumber(s) Goal: Risk for Compromised Skin Integrity-Other Apprentice Plumber(s) Outcome: Progressing Problem: INFECTION - ADULT Goal: Absence of infection during hospitalization Outcome: Progressing Problem: SKIN/TISSUE INTEGRITY Goal: Skin/Tissue integrity maintained or improved Outcome: Progressing Problem: SAFETY ADULT Goal: Maintain a safe environment Outcome: Progressing Problem: Risk for Compromised Skin Integrity-Ceasar Nutrition Score 1 or 2 Goal: Improve nutritional status to maintain or improve skin integrity. Outcome: Progressing Problem: Risk for Compromised Skin Integrity-Ceaasr Mobility Score 1 or 2 Goal: Achieve optimal mobility to maintain or improve skin integrity. Outcome: Progressing Problem: Risk for Compromised Skin Integrity-Ceasar Sensory Perception Score 1, 2, or 3 Goal: Manage sensory perception deficits to maintain and/or improve skin integrity. Outcome: Progressing Problem: Risk for Compromised Skin Integrity-Ceasar Friction and Shear Score 1 or 2 Goal: Minimize friction and/or shear to maintain or improve skin integrity. Outcome: Progressing Problem: Risk for Compromised Skin Integrity-Ceasar Activity Score 1 or 2 Goal: Achieve optimal activity to maintain or improve skin integrity. Outcome: Progressing Problem: Risk for Compromised Skin Integrity-Ceasar Activity Score 3 Goal: Achieve optimal activity to maintain or improve skin integrity. Outcome: Progressing Shift Goals: Monitor VS, pain/discomfort, and maintain safety Identify possible barriers to meeting goals/advancing plan of care: Acuity of Illness End of Shift Summary: Patient has been A&O to person and pleasantly confused/disoriented to place and time over the court of the shift. VS has been WNLs over the course of the night. Patient has been assist of 1 for cares and transfer over the course of the night. Patient has been on 1:1 continuous observation with non-RN. Patient has been sleeping for majority of the shift. Patient has been on room air and has been able to maintain oxygen sat above 90% over the course of the shift. Patientdoesn't use call light for the shift. Safety managed with bed/chair alarm with intentional roundingand will continue to monitor. * Julieth Johnson R.N. - 09/21/2024 5:18 PM CDT Shift Goals: Problem: Risk for Compromised Skin Integrity-Other Apprentice Plumber(s) Goal: Risk for Compromised Skin Integrity-Other Apprentice Plumber(s) Outcome: Progressing Problem: KNOWLEDGE DEFICIT Goal: Patient/family/caregiver demonstrates understanding of disease process, treatment plan, medications, and discharge instructions Outcome: Progressing Identify possible barriers to meeting goals/advancing plan of care: End of Shift Summary: Patient resting comfortably at this time. 1:1 care due to patient continuously setting off alarms and pulling out IV's. * Brandon Hawkins R.N. - 09/21/2024 6:25 AM CDT Problem: Risk for Compromised Skin Integrity-Other Apprentice Plumber(s) Goal: Risk for Compromised Skin Integrity-Other Apprentice Plumber(s) Outcome: Progressing Problem: PAIN - ADULT Goal: PT VERBALIZES/DEMONSTRATES ADEQUATE COMFORT LEVEL OR BASELINE Outcome: Progressing Problem: INFECTION - ADULT Goal: Absence of infection during hospitalization Outcome: Progressing Problem: SKIN/TISSUE INTEGRITY Goal: Skin/Tissue integrity maintained or improved Outcome: Progressing Goal: Oral and Nasal mucous membranes remain intact Outcome: Progressing Problem: SAFETY ADULT Goal: Maintain a safe environment Outcome: Progressing Problem: Risk for Compromised Skin Integrity-Ceasar Nutrition Score 1 or 2 Goal: Improve nutritional status to maintain or improve skin integrity. Outcome: Progressing Problem: Risk for Compromised Skin Integrity-Ceasar Mobility Score 1 or 2 Goal: Achieve optimal mobility to maintain or improve skin integrity. Outcome: Progressing Problem: Risk for Compromised Skin Integrity-Ceasar Sensory Perception Score 1, 2, or 3 Goal: Manage sensory perception deficits to maintain and/or improve skin integrity. Outcome: Progressing Problem: Risk for Compromised Skin Integrity-Ceasar Friction and Shear Score 1 or 2 Goal: Minimize friction and/or shear to maintain or improve skin integrity. Outcome: Progressing Problem: Risk for Compromised Skin Integrity-Ceasar Activity Score 1 or 2 Goal: Achieve optimal activity to maintain or improve skin integrity. Outcome: Progressing Problem: SAFETY ADULT - RISK FOR FALL AND OR FALL INJURY Goal: Patient remains free from fall/fall injury Outcome: Progressing Shift Goals: Monitor VS, pain/discomfort, and maintain safety Identify possible barriers to meeting goals/advancing plan of care: Acuity of Illness End of Shift Summary: Patient has been A&O to person and pleasantly confused/disoriented to place and time over the court of the shift. VS has been WNLs over the course of the night. Riley catheter has been intact over the course of the shift. Patient has been assist of 1 for cares and assist of 2 for transfer over the course of the night. Patient has been sleeping for majority of the shift. Patient has been on room air and has been able to maintain oxygen sat above 90% over the course of the shift. Patient doesn't use call light for the shift. Safety managed with bed/chair alarm with intentional rounding and will continue to monitor. documented in this encounter Plan of Treatment Upcoming Encounters Date Type Department Care Team (Latest Contact Info) Description 10/20/2024 11:00 AM CDT Comprehensive Visit Department of Urology in [address] [phone] Kimberly Sheldon, ИРИНАS, P.A.-C., P.A. [address] [phone] Discharge Disposition: Home or Self Care 10/21/2024 7:45 AM CDT Clinical Communication Virtual Review in [address] [phone] 10/27/2024 11:00 AM CDT Appointment Department of Laboratory Medicine and Pathology, [facility], in [address] [phone] Mira Valencia APRN, C.N.P., D.N.P. [address] [place] [phone] 10/27/2024 1:00 PM CDT Comprehensive Visit Department of Palliative Care in [address] [phone] Faith Mahmood M.D., M.S. [address] [place] [phone] 10/27/2024 3:00 PM CDT Appointment Department of Radiology, [facility], in [place], [place] [address] [place] [phone] Mira Valencia APRN, C.N.P., D.N.P. [address] [place] [phone] 10/29/2024 2:00 PM CDT Telemedicine Department of Medical Genetics in [place], [place] [address] [place] [phone] Óscar Gallegos M.D. [address] [place] [phone] Dora Hernandez M.S., [facility] [address] [place] [phone] 11/11/2024 11:00 AM CDT Office Visit Division of Hematology in [place], [place] [address] [place] [phone] Kirill Grayson M.D. [address] [place] [phone] Scheduled Orders Name Type Priority Associated Diagnoses Orde r Schedule URO Uroflow Procedure Routine Retention Urinary 1 Occurrences starting 09/24/2024 until 12/25/2025 Bacterial Culture, Aerobic + Susceptibility, Urine Microbiology Routine Retention Urinary 1 Occurrences starting 09/24/2024 until 12/25/2025 PSA (Prostate-Specific Antigen), Diagnostic Lab Routine Retention Urinary 1 Occurrences starting 09/24/2024 until 12/25/2025 Urinalysis, with Microscopic: Urine, Indwelling Catheter Lab Routine Retention Urinary 1 Occurrences starting 09/24/2024 until 12/25/2025 Scheduled Referrals Name Type Priority Associated Diagnoses Orde r Schedule Urology - General - urinary retention consult (clinic) Outpatient Referral Routine Retention Urinary Expected: 09/24/2024, Expires: 12/25/2025 documented as of this encounter Procedures Procedure Name Priority Date/Time Associated Diagnosis Comments CBC WITH DIFFERENTIAL, B Routine 09/24/2024 5:13 AM CDT BASIC METABOLIC PANEL, S/P Routine 09/24/2024 5:13 AM CDT CBC WITH DIFFERENTIAL, B Routine 09/23/2024 8:26 AM CDT BASIC METABOLIC PANEL, S/P Routine 09/23/2024 8:26 AM CDT CBC WITH DIFFERENTIAL, B Routine 09/22/2024 5:12 AM CDT BASIC METABOLIC PANEL, S/P Routine 09/22/2024 5:12 AM CDT CBC WITH DIFFERENTIAL, B Routine 09/21/2024 5:12 AM CDT BASIC METABOLIC PANEL, S/P Routine 09/21/2024 5:12 AM CDT documented in this encounter Results * (ABNORMAL) Basic Metabolic Panel (09/24/2024 5:13 AM CDT) Potassium, P 4.1 3.6 - 5.2 mmol/L 09/24/2024 6:17 AM CDT [facility] Sodium, P 141 135 - 145 mmol/L 09/24/2024 6:17 AM CDT [facility] Chloride, P 106 98 - 107 mmol/L 09/24/2024 6:17 AM CDT [facility] Bicarbonate, P 25 22 - 29 mmol/L 09/24/2024 6:17 AM CDT [facility] Anion Gap, P 10 7 - 15 09/24/2024 6:17 AM CDT [facility] BUN (Blood Urea Nitrogen), P 26(H) 8 - 24 mg/dL 09/24/2024 6:17 AM CDT [facility] Creatinine 1.14 0.74 - 1.35 mg/dL 09/24/2024 6:17 AM CDT [facility] Estimated GFR (eGFR) 63 >=60 mL/min/BSA 09/24/2024 6:17 AM CDT [facility] Comment: Estimated GFR calculated using the 2020 CKD_EPI creatinine equation. Calcium, Total, P 8.5(L) 8.8 - 10.2 mg/dL 09/24/2024 6:17 AM CDT [facility] Glucose, P 112 70 - 140 mg/dL 09/24/2024 6:17 AM CDT [facility] Blood (Blood, Venous) 09/24/2024 5:13 AM CDT 09/24/2024 5:36 AM CDT Julieth Cramer APRN C.N.P. LAB BLOOD ADD-ON Fi nal Result [facility] [address] [place] [address], [facility] - [facility] [address] [place] [address] * (ABNORMAL) CBC with Differential, Blood (09/24/2024 5:13 AM CDT) Hemoglobin 12.1(L) 13.2 - 16.6 g/dL 09/24/2024 5:45 AM CDT [facility] Hematocrit 35.4(L) 38.3 - 48.6 % 09/24/2024 5:45 AM CDT [facility] Erythrocytes 3.70(L) 4.35 - 5.65 x10(12)/L 09/24/2024 5:45 AM CDT [facility] MCV 95.7 78.2 - 97.9 fL 09/24/2024 5:45 AM CDT [facility] RBC Distrib Width 11.9 11.8 - 14.5 % 09/24/2024 5:45 AM CDT [facility] Platelet Count 206 135 - 317 x10(9)/L 09/24/2024 5:45 AM CDT [facility] Leukocytes 7.2 3.4 - 9.6 x10(9)/L 09/24/2024 5:45 AM CDT [facility] Neutrophils 4.74 1.56 - 6.45 x10(9)/L 09/24/2024 5:45 AM CDT [facility] Lymphocytes 1.34 0.95 - 3.07 x10(9)/L 09/24/2024 5:45 AM CDT [facility] Monocytes 0.68 0.26 - 0.81 x10(9)/L 09/24/2024 5:45 AM CDT [facility] Eosinophils 0.37 0.03 - 0.48 x10(9)/L 09/24/2024 5:45 AM CDT [facility] Basophils 0.03 0.01 - 0.08 x10(9)/L 09/24/2024 5:45 AM CDT [facility] Blood (Blood, Venous) 09/24/2024 5:13 AM CDT 09/24/2024 5:36 AM CDT us Julieth Cramer APRN, C.N.P. LAB BLOOD ADD-ON Fi nal Result [facility] [address] [place] [address], [facility] - [facility] [address] [place] [address] * (ABNORMAL) Basic Metabolic Panel (09/23/2024 8:26 AM CDT) Potassium, P 4.0 3.6 - 5.2 mmol/L 09/23/2024 9:30 AM CDT [facility] Sodium, P 141 135 - 145 mmol/L 09/23/2024 9:30 AM CDT [facility] Chloride, P 106 98 - 107 mmol/L 09/23/2024 9:30 AM CDT [facility] Bicarbonate, P 25 22 - 29 mmol/L 09/23/2024 9:30 AM CDT [facility] Anion Gap, P 10 7 - 15 09/23/2024 9:30 AM CDT [facility] BUN (Blood Urea Nitrogen), P 26(H) 8 - 24 mg/dL 09/23/2024 9:30 AM CDT [facility] Creatinine 1.13 0.74 - 1.35 mg/dL 09/23/2024 9:30 AM CDT [facility] Estimated GFR (eGFR) 64 >=60 mL/min/BSA 09/23/2024 9:30 AM CDT [facility] Comment: Estimated GFR calculated using the 2020 CKD_EPI creatinine equation. Calcium, Total, P 8.5(L) 8.8 - 10.2 mg/dL 09/23/2024 9:30 AM CDT [facility] Glucose, P 102 70 - 140 mg/dL 09/23/2024 9:30 AM CDT [facility] Blood (Blood, Venous) 09/23/2024 8:26 AM CDT 09/23/2024 9:05 AM CDT Julieth Cramer APRN C.N.P. LAB BLOOD ADD-ON Fi nal Result [facility] [address] [place] [address], [facility] - [facility] [address] [place] [address] * (ABNORMAL) CBC with Differential, Blood (09/23/2024 8:26 AM CDT) Hemoglobin 12.0(L) 13.2 - 16.6 g/dL 09/23/2024 9:13 AM CDT [facility] Hematocrit 35.1(L) 38.3 - 48.6 % 09/23/2024 9:13 AM CDT [facility] Erythrocytes 3.65(L) 4.35 - 5.65 x10(12)/L 09/23/2024 9:13 AM CDT [facility] MCV 96.2 78.2 - 97.9 fL 09/23/2024 9:13 AM CDT [facility] RBC Distrib Width 12.0 11.8 - 14.5 % 09/23/2024 9:13 AM CDT [facility] Platelet Count 190 135 - 317 x10(9)/L 09/23/2024 9:13 AM CDT [facility] Leukocytes 7.3 3.4 - 9.6 x10(9)/L 09/23/2024 9:13 AM CDT [facility] Neutrophils 4.86 1.56 - 6.45 x10(9)/L 09/23/2024 9:12 AM CDT [facility] Lymphocytes 1.22 0.95 - 3.07 x10(9)/L 09/23/2024 9:13 AM CDT [facility] Monocytes 0.87(H) 0.26 - 0.81 x10(9)/L 09/23/2024 9:13 AM CDT [facility] Eosinophils 0.29 0.03 - 0.48 x10(9)/L 09/23/2024 9:13 AM CDT [facility] Basophils 0.03 0.01 - 0.08 x10(9)/L 09/23/2024 9:13 AM CDT [facility] Blood (Blood, Venous) 09/23/2024 8:26 AM CDT 09/23/2024 9:04 AM CDT Julieth Cramer APRN, C.N.P. LAB BLOOD ADD-ON Fi nal Result [facility] [address] [place] [address], [facility] - [facility] [address] [place] [address] * (ABNORMAL) Basic Metabolic Panel (09/22/2024 5:12 AM CDT) Potassium, P 3.7 3.6 - 5.2 mmol/L 09/22/2024 6:16 AM CDT [facility] Sodium, P 141 135 - 145 mmol/L 09/22/2024 6:16 AM CDT [facility] Chloride, P 108(H) 98 - 107 mmol/L 09/22/2024 6:16 AM CDT [facility] Bicarbonate, P 24 22 - 29 mmol/L 09/22/2024 6:16 AM CDT [facility] Anion Gap, P 9 7 - 15 09/22/2024 6:16 AM CDT [facility] BUN (Blood Urea Nitrogen), P 38(H) 8 - 24 mg/dL 09/22/2024 6:16 AM CDT [facility] Creatinine 1.23 0.74 - 1.35 mg/dL 09/22/2024 6:16 AM CDT [facility] Estimated GFR (eGFR) 58(L) >=60 mL/min/BSA 09/22/2024 6:16 AM CDT [facility] Comment: Estimated GFR calculated using the 2020 CKD_EPI creatinine equation. Calcium, Total, P 8.5(L) 8.8 - 10.2 mg/dL 09/22/2024 6:16 AM CDT [facility] Glucose, P 101 70 - 140 mg/dL 09/22/2024 6:16 AM CDT [facility] Blood (Blood, Venous) 09/22/2024 5:12 AM CDT 09/22/2024 5:53 AM CDT us Iris Pizano P.A.-C., P.A. LAB BLOOD ADD- ON Final Result [facility] [address] [place] [address], [facility] - [facility] [address] [place] [address] * (ABNORMAL) CBC with Differential, Blood (09/22/2024 5:12 AM CDT) Hemoglobin 11.1(L) 13.2 - 16.6 g/dL 09/22/2024 6:04 AM CDT [facility] Hematocrit 33.6(L) 38.3 - 48.6 % 09/22/2024 6:04 AM CDT [facility] Erythrocytes 3.46(L) 4.35 - 5.65 x10(12)/L 09/22/2024 6:04 AM CDT [facility] MCV 97.1 78.2 - 97.9 fL 09/22/2024 6:04 AM CDT [facility] RBC Distrib Width 12.4 11.8 - 14.5 % 09/22/2024 6:04 AM CDT [facility] Platelet Count 178 135 - 317 x10(9)/L 09/22/2024 6:04 AM CDT [facility] Leukocytes 6.3 3.4 - 9.6 x10(9)/L 09/22/2024 6:04 AM CDT [facility] Neutrophils 4.21 1.56 - 6.45 x10(9)/L 09/22/2024 6:04 AM CDT [facility] Lymphocytes 1.02 0.95 - 3.07 x10(9)/L 09/22/2024 6:04 AM CDT [facility] Monocytes 0.76 0.26 - 0.81 x10(9)/L 09/22/2024 6:04 AM CDT [facility] Eosinophils 0.24 0.03 - 0.48 x10(9)/L 09/22/2024 6:04 AM CDT [facility] Basophils <0.03 0.01 - 0.08 x10(9)/L 09/22/2024 6:04 AM CDT [facility] Blood (Blood, Venous) 09/22/2024 5:12 AM CDT 09/22/2024 5:53 AM CDT us Iris Pizano P.A.-C., P.A. LAB BLOOD ADD- ON Final Result [facility] [address] [place] [address], [facility] - [facility] [address] [place] [address] * (ABNORMAL) CBC with Differential, Blood (09/21/2024 5:12 AM CDT) Hemoglobin 11.6(L) 13.2 - 16.6 g/dL 09/21/2024 6:27 AM CDT [facility] Hematocrit 35.0(L) 38.3 - 48.6 % 09/21/2024 6:27 AM CDT [facility] Erythrocytes 3.55(L) 4.35 - 5.65 x10(12)/L 09/21/2024 6:27 AM CDT [facility] MCV 98.6(H) 78.2 - 97.9 fL 09/21/2024 6:27 AM CDT [facility] RBC Distrib Width 12.4 11.8 - 14.5 % 09/21/2024 6:27 AM CDT [facility] Platelet Count 200 135 - 317 x10(9)/L 09/21/2024 6:27 AM CDT [facility] Leukocytes 11.5(H) 3.4 - 9.6 x10(9)/L 09/21/2024 6:27 AM CDT [facility] Neutrophils 8.83(H) 1.56 - 6.45 x10(9)/L 09/21/2024 6:27 AM CDT [facility] Lymphocytes 1.11 0.95 - 3.07 x10(9)/L 09/21/2024 6:27 AM CDT [facility] Monocytes 1.29(H) 0.26 - 0.81 x10(9)/L 09/21/2024 6:27 AM CDT [facility] Eosinophils 0.20 0.03 - 0.48 x10(9)/L 09/21/2024 6:27 AM CDT [facility] Basophils 0.03 0.01 - 0.08 x10(9)/L 09/21/2024 6:27 AM CDT [facility] Blood (Blood, Venous) 09/21/2024 5:12 AM CDT 09/21/2024 6:06 AM CDT us Sofía Banks M.D. LAB BLOOD ADD-ON Final Resul t [facility] [address] [place] [address], [facility] - [facility] [address] [place] [address] * (ABNORMAL) Basic Metabolic Panel (09/21/2024 5:12 AM CDT) Potassium, P 3.3(L) 3.6 - 5.2 mmol/L 09/21/2024 6:33 AM CDT [facility] Sodium, P 143 135 - 145 mmol/L 09/21/2024 6:33 AM CDT [facility] Chloride, P 107 98 - 107 mmol/L 09/21/2024 6:33 AM CDT [facility] Bicarbonate, P 22 22 - 29 mmol/L 09/21/2024 6:33 AM CDT [facility] Anion Gap, P 14 7 - 15 09/21/2024 6:33 AM CDT [facility] BUN (Blood Urea Nitrogen), P 44(H) 8 - 24 mg/dL 09/21/2024 6:33 AM CDT [facility] Creatinine 1.30 0.74 - 1.35 mg/dL 09/21/2024 6:33 AM CDT [facility] Estimated GFR (eGFR) 54(L) >=60 mL/min/BSA 09/21/2024 6:33 AM CDT [facility] Comment: Estimated GFR calculated using the 2020 CKD_EPI creatinine equation. Calcium, Total, P 8.7(L) 8.8 - 10.2 mg/dL 09/21/2024 6:33 AM CDT [facility] Glucose, P 87 70 - 140 mg/dL 09/21/2024 6:33 AM CDT [facility] Blood (Blood, Venous) 09/21/2024 5:12 AM CDT 09/21/2024 6:05 AM CDT us Sofía Banks M.D. 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) Dehydration Hypernatremia Hypovolemia Acidosis Metabolic Anion Gap Nephropathy Obstructive documented in this encounter Admitting Diagnoses Diagnosis Failure Renal Acute (Acute Kidney Injury) documented in this encounter Administered Medications Inactive Administered Medications - up to 3 most recent administrations Medication Order MAR Action Action Date Dose Rate Site amLODIPine tablet 5 mg (Norvasc) 5 mg, oral, Daily, First dose on 09/22/24 at 0900, Hold for SBP <130 Given 09/24/2024 9:38 AM CDT 5 mg Given 09/23/2024 9:05 AM CDT 5 mg Given 09/22/2024 9:12 AM CDT 5 mg cefTRIAXone injection 1 g (Rocephin) 1 g, intravenous, Every 24 hours, First dose on Sun09/21/24 at 2245, For 2 doses, If needed, reconstitute vial per package insert instructions. See IVAG for administration guidelines., Drug Monitoring Program: Pharmacist to adjust medication dosing based on indication and drug clearance factors., Indications: Lower UTI, catheterIndications:Lower UTI, catheter Given 09/22/2024 10:38 PM CDT 1 g Given 09/21/2024 10:26 PM CDT 1 g cefTRIAXone injection 2 g (Rocephin) 2 g, intravenous, Every 24 hours, First dose on 09/20/24 at 2145, For 3 doses, If needed, reconstitute vial per package insert instructions. See IVAG for administration guidelines., Drug Monitoring Program: Pharmacist to adjust medication dosing based on indication and drug clearance factors., Indications: Sepsis syndrome, unknown source, community acquiredIndications:Sepsis syndrome, unknown source, community acquired Given 09/20/2024 10:00 PM CD T 2 g escitalopram tablet 10 mg (Lexapro) 10 mg, oral, Daily, First dose on 09/22/24 at 0900 Given 09/24/2024 9:38 AM CDT 10 mg Given 09/23/2024 9:05 AM CDT 10 mg Given 09/22/2024 10:09 AM CDT 10 mg heparin (porcine) injection 5,000 Units 5,000 Units, subcutaneous, Every 8 hours scheduled, First dose on 09/20/24 at 2200 Given 09/24/2024 5:20 AM CDT 5,000 Units Right Lower Abdomen Given 09/23/2024 10:00 PM CDT 5,000 Units Left Lower Abdomen Given 09/23/2024 1:41 PM CDT 5,000 Units L eft Upper Arm (Back) Lactated Ringer's 75 mL/hr, intravenous, Continuous, Starting on 09/20/24 at 2145 New Bag 09/20/2024 10:00 PM CDT 75 mL/hr 75 mL/hr pantoprazole DR tablet 40 mg (Protonix) 40 mg, oral, Daily before morning meal, First dose on 09/22/24 at 0700, Swallow whole. Do NOT crush, chew, or split tablet. Given 09/24/2024 5:20 AM CDT 40 mg Given 09/22/2024 6:12 AM CDT 40 mg potassium chloride ER tablet 40 mEq 40 mEq, oral, Once, On 09/21/24 at 0715, For 1 dose, Swallow whole. Do NOT crush, chew, or split tablet. Given 09/21/2024 6:59 AM CDT 40 mEq sennosides-docusate sodium 8.6-50 mg per tablet 1 tablet (Senokot-S) 1 tablet, oral, 2 times daily, First dose on 09/21/24 at 0900, Do not give if patient has diarrhea. Given 09/22/2024 9:13 AM CDT 1 tablet Given 09/21/2024 9:55 PM CDT 1 tablet Given 09/21/2024 9:03 AM CDT 1 tablet sennosides-docusate sodium 8.6-50 mg per tablet 1 tablet (Senokot-S) 1 tablet, oral, 2 times daily PRN, constipation, Starting on Sun09/23/24 at 0930, Do not give if patient has diarrhea. documented in this encounter Active and Recently Administered Medications Times are shown in CDT. Scheduled Medication Order 09/22/2024 09/23/2024 09/24/2024 amLODIPine tablet 5 mg (Norvasc) 5 mg, oral, Daily, First dose on Sun09/22/24 at 0900, Hold for SBP <130 0912 (Given - Provider: Petra Smith R.N.) 0905 (Given - Provider: Lien Torres R.N.) 0938 (Given - Provider: Karolina Gold R.N.) cefTRIAXone injection 1 g (Rocephin) (COMPLETED) 1 g, intravenous, Every 24 hours, First dose on Sun09/21/24 at 2245, For 2 doses, If needed, reconstitute vial per package insert instructions. See IVAG for administration guidelines., Drug Monitoring Program: Pharmacist to adjust medication dosing based on indication and drug clearance factors., Indications: Lower UTI, catheter 2237 (Given - Provider: Carolyn Limon R.N.) escitalopram tablet 10 mg (Lexapro) 10 mg, oral, Daily, First dose on Sun09/22/24 at 0900 1009 (Given - Provider: Petra Smith R.N.) 0905 (Given - Provider: Lien Torres R.N.) 0938 (Given - Provider: Karolina Gold R.N.) heparin (porcine) injection 5,000 Units 5,000 Units, subcutaneous, Every 8 hours scheduled, First dose on Sun09/20/24 at 2200 0612 (Given - Provider: Brandon Hawkins R.N.)1500 (Not Given - Provider: Petra Smith R.N. - Reason: Other)2238 (Given - Provider: Carolyn Limon R.N.) 0609 (Not Given - Provider: Carolyn Limon R.N. - Reason: Patient/family refused)1341 (Given - Provider: Lien Torres R.N.)2200 (Given - Provider: Em He R.N.) 0520 (Given - Provider: Em He R.N.) pantoprazole DR tablet 40 mg (Protonix) 40 mg, oral, Daily before morning meal, First dose on 09/22/24 at 0700, Swallow whole. Do NOT crush, chew, or split tablet. 0612 (Given - Provider: Brandon Hawkins R.N.) 0643 (Not Given - Provider: Carolyn Limon R.N. - Reason: Patient/family refused) 0520 (Given - Provider: Em He R.N.) sennosides-docusate sodium 8.6-50 mg per tablet 1 tablet (Senokot-S) (CANCELED) 1 tablet, oral, 2 times daily, First dose on Sun09/21/24 at 0900, Do not give if patient has diarrhea. 912 (Given - Provider: Petra Smith R.N.)2037 (Not Given - Provider: Carolyn Limon R.N. - Reason: Order parameters not met) 800 (Not Given - Provider: Lien Torres R.N. - Reason: Order parameters not met - Comment: patient having diarrhea) PRN Medication Order 09/22/2024 09/23/2024 09/24/2024 acetaminophen tablet 1,000 mg (TylenoL) 1,000 mg, oral, Every 6 hours PRN, mild pain or score 1-3 of 10, headaches, fever, Starting on 09/20/24 at 2120, Not to exceed 4 grams of acetaminophen in 24 hours all sources albuterol nebulizer solution 2.5 mg 2.5 mg, nebulization, Every 6 hours PRN, wheezing, shortness of breath, Starting on 09/20/24 at 2120 calcium carbonate chewable tablet 400 mg of calcium (Tums) 400 mg of calcium, oral, Every 2 hour PRN, heartburn, indigestion, Starting on 09/20/24 at 2120, Doses listed are in mg of elemental calcium. Take with food. 500 mg calcium carbonate contains 200 mg of elemental calcium. melatonin tablet 3 mg 3 mg, oral, Bedtime PRN, sleep, Starting on 09/20/24 at 2120 ondansetron (PF) injection 4 mg (Zofran) 4 mg, intravenous, Every 6 hours PRN, nausea, vomiting, Starting on 09/20/24 at 2120 polyethylene glycol powder packet 17 g (Miralax) 17 g, oral, Daily PRN, constipation, Starting on Sun09/20/24 at 2120, Ordered sequence of administration: polyethylene glycol, then bisacodyl until BM achieved. Avoid mixing with starch-based thickened liquids. sennosides-docusate sodium 8.6-50 mg per tablet 1 tablet (Senokot-S) 1 tablet, oral, 2 times daily PRN, constipation, Starting on Sun09/23/24 at 0930, Do not give if patient has diarrhea. 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
--- OUTSIDE RECORDS SUMMARY | 2024-10-01 19:03 | XMS_ITS | Encounter Summary ---
Author Organization [facility] [place] [facility] Address [address] [place] [address] Care Team Providers Care Appointment Coordinator Name Role Phone None Reported, Pcp Primary Care Provider Unavail able Reason for Visit * Reason Comments Urinary Catheter Change Patient's previo us catheter got toilet water in it and was pulled by the facility, patient has not urinated since Encounter Details Date Type Department Care Team (Late st Contact Info) Description 10/01/2024 7:03 PM CDT - 10/01/2024 7:56 PM CDT Emergency [facility] [address] [place] [phone] Yousuf Shaffer, P.A.-C. [address] [place] [phone] Retention Urinary (Primary Dx); Displacement Of Other Urinary Catheter Initial Discharge Disposition: Home or Self Care Social History Tobacco Use Types Packs/Day Years Used Date Smoking Tobacco: Never Passive Smoke Exposure: Never Smokeless Tobacco: Never Alcohol Use Standard Drinks/Week Comments Not Currently 14 (1 standard drink = 0.6 oz pure alcohol) Drank beer regularly until 2024. Not drinking much alcohol now. [facility] Utilities Answer Date Recorded In the past 12 months has [employer], gas, oil, or water [employer] threatened to shut off services in your [...] your living situation today? 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 - 10/01/2024 7:30 PM CDT We have successfully replaced her catheter in the emergency department. I have attached instructions for caring for the catheter. Please return to the ER immediately if new symptoms develop, symptomsfail to improve, symptoms worsen, or you becomes concerned * Attachments The following attachments cannot be sent through Care Everywhere. * Indwelling Urinary Catheter Insertion (Guatemalan) * Indwelling Urinary Catheter Insertion Care After (Guatemalan) documented in this encounter Medications at Time [...] daily. 03/02/2023 documented as of this encounter ED Notes * Yousuf Shaffer P.A.-C. - 10/01/2024 7:56 PM CDT SUBJECTIVE CHIEF COMPLAINT/REASON FOR VISIT Urinary Catheter Change (Patient's previous catheter got toilet water in it and was pulled by the facility, patient has not urinated since) HISTORY OF PRESENT ILLNESS 84-year-old male presents ER after urinary catheter was displaced this evening. Patient has not been able to urinate since that time. He notes abdominal pressure. Denies fever, chills, or flank pain. History provided by: Patient and relative REVIEW OF SYSTEMS All pertinent systems reviewed and are negative except as discussed in HPI OBJECTIVE Initial Vitals Temperature 10/01/241909 37.1 ??C Pulse Rate 10/01/241909 80 Heart Rate -- Resp Rate 10/01/241909 16 Blood Pressure 10/01/24 1900 132/82 SpO2 10/01/241909 96 % Pain Score -- PHYSICAL EXAMINATION Constitutional: Nursing note and vitals reviewed. HENT: Head: Normocephalic and atraumatic. Right Ear: Tympanic membrane normal. Left Ear: Tympanic membrane normal. Nose: No nasal discharge. Mouth/Throat: Oropharynx is clear and moist. Mucous membranes are moist. Eyes: Pupils are equal, round, and reactive to light. Neck: Neck supple. Cardiovascular: Normal rate, regular rhythm, S1 normal, S2 normal and normal heart sounds. Pulses are palpable. Pulmonary/Chest: Effort normal and breath sounds normal. There is normal air entry. Abdominal: Soft. Bowel sounds are normal. There is no hepatosplenomegaly. There is no abdominal tenderness. There is no rigidity, no rebound, no guarding, no CVA tenderness, no tenderness at McBurney's point, negative Samaniego's sign, no Psoas sign and no Rovsing's sign. Genitourinary: Testes normal and penis normal. Musculoskeletal: Cervical back: Normal range of motion and neck supple. Neurological: Alert and oriented to person, place, and time. Skin: Skin is warm. No rash noted. ASSESSMENT/PLAN Assessment and Plan Patient appears well. Based on history, physical exam, and all information gathered in the ER today; I do not suspect UTI, pyelonephritis, trauma. Stephen catheter was placed by RN without complication. Patient was able to void into leg bag. . Patient's symptoms appear consistent with displacement ofFoley catheter.. Considered additional testing including laboratory testing , but this does not appear to be indicated at this time given observable information at todays visit. I have reviewed patients previous clinic notes, ER visits, and laboratory testing. Admission does not appear to be indicate at this time, however pt's condition may change requiring repeat examination in the ER. Patient appears stable for continued care and work-up as inidicated as an outpatient. Patient will return to the ER if new symptoms develop, current symptoms worsen, symptoms fail to improve, patient becomes concerned. Patient discharged in good condition. . I reviewed the following external records: primary care records and office records. Final Diagnoses: as of 10/02/24 0003 Retention Urinary Displacement Of Other Urinary Catheter Initial Yousuf Shaffer, P.Margarette.-C. 10/02/24 0006 documented in this encounter Plan of Treatment Upcoming Encounters Date Type Department Care Team (Latest Contact Info) Description 10/20/2024 11:00 AM CDT Comprehensive Visit Department of Urology in [address] [phone] Kimberly Sheldon MPAS, P.A.-C., P.A. [address] [phone] Discharge Disposition: Home or Self Care 10/21/2024 7:45 AM CDT Clinical Communication Virtual Review in [place], [place] [address] [place] [phone] 10/27/2024 11:00 AM CDT Appointment Department of Laboratory Medicine and Pathology, [facility], in [place], [place] [address] [place] [phone] Mira Valencia APRN, C.NRichy, D.N.P. [address] [place] [phone] 10/27/2024 1:00 PM CDT Comprehensive Visit Department of Palliative Care in [place], [place] [address] [place] [phone] Faith Mahmood M.D., M.S. [address] [place] [phone] 10/27/2024 3:00 PM CDT Appointment Department of Radiology, [facility], in [place], [place] [address] [place] [phone] Mira Valencia APRN, C.NFranky., D.N.P. [address] [place] [phone] 10/29/2024 2:00 PM CDT Telemedicine Department of Medical Genetics in [place], [place] [address] [place] [phone] Óscar Gallegos M.D. [address] [place] [phone] Dora Hernandez M.SCeferino, [facility] [address] [place] [phone] 11/11/2024 11:00 AM CDT Office Visit Division of Hematology in [address] [phone] Kiirll Grayson M.D. [address] [place] [phone] documented as of this encounter Visit Diagnoses Diagnosis Retention Urinary- Primary Displacement Of Other Urinary Catheter Initial documented in this encounter Care Teams Appointment Coordinator Relationship Specialty Start Date End Date None Reported, Pcp PCP - General Family Medicine 7/5/25 documented as of this encounter
--- OUTSIDE RECORDS SUMMARY | 2024-10-16 19:04 | XMS_ITS ---
Author Name Auto Generated, Auto Generated Organization [employer] Functional Status No Results Mental Status No Results Allergies and Intolerances No Known Allergies Problems Active Concerns * Frailty syndrome in geriatric patient* Code: [id number] * Start Date: SunAug 26 17:10:00 EDT 2024 * End Date: * Text: * Other frontotemporal neurocognitive disorder* Code: [id number] * Start Date: SunOct 13 18:55:00 EDT 2024 * End Date: * Text: * Health care maintenance* Code: [id number] * Start Date: SunOct 13 15:52:00 EDT 2024 * End Date: * Text: * Acute renal failure, unspecified acute renal failure type* Code: [id number] * Start Date: SunOct 13 18:48:00 EDT 2024 * End Date: * Text: * Urinary retention* Code: [id number] * Start Date: SunOct 13 18:53:00 EDT 2024 * End Date: * Text: * Hydronephrosis, unspecified hydronephrosis type* Code: [id number] * Start Date: SunOct 13 18:54:00 EDT 2024 * End Date: * Text: Reason for Referral
--- OUTSIDE RECORDS SUMMARY | 2024-10-16 19:05 | XMS_ITS | Clinical Summary ---
Author Organization [facility] Address [address] [place] [address] Care Team Providers Care Sales Record Clerk Name Role Phone None Reported, Pcp Primary Care Provider Unavail able Source Comments Patient records contain information from all sites at [facility]. For routine questions regarding patient records, call [phone] during business hours, M-F 8:00 AM - 5:00 PM Central Time. Record requests for emergency care only can be directed to [phone] at any time.[facility] Allergies Active Allergy Reactions Criticality Noted Date [...] Disturbance 08/14/2024 Anemia Iron Deficiency 06/08/2023 Other Group Home Current Drug Therapy 04/17/2023 Multiple Myeloma Not Having Achieved Remission 0 06/29/2021 Encounters * This document contains information received from the source organization and may not represent a complete record from that organization. Date Type Department Care Team Description 10/01/2024 7:03 PM CDT - 10/01/2024 7:56 PM CDT Emergency [place] [facility] [address] [place] [phone] Yousuf Shaffer, P.A.-C. Retention Urinary (Primary Dx); Displacement Of Other Urinary Catheter Initial Discharge Disposition: Home or Self Care 09/30/2024 Clinical Communication Department of Family Medicine, [facility], in [place], [place] [address] [phone] None Reported, Pcp 09/20/2024 9:14 PM CDT - 09/24/2024 12:00 PM CDT Hospital Encounter [facility], [facility], Second Floor [address] [place] [phone] Iris Pizano P.A.-C., Julieth Kinsey APRN, C.N.P. Failure Renal Acute (Acute Kidney Injury) [N17.9] (Primary Dx); History Of Falling; Retention Urinary Discharge Disposition: Home or Self Care 09/20/2024 10:32 AM CDT - 09/20/2024 7:22 PM CDT Emergency [place] [facility] [address] [place] [phone] Noel Barragan APRN, C.N.P., D.N.P. Dehydration (Primary Dx); Hypernatremia; Failure Renal Acute (Acute Kidney Injury); Acidosis Metabolic Anion Gap; Obstruction Bladder Neck Discharge Disposition: [facility] 08/14/2024 2:00 PM CDT Office Visit Division of Hematology in [place], [place] [address] [place] [phone] Mira Valencia APRN, C.N.P., D.N.P. 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 Multiple Myeloma Not Having Achieved Remission (HCC); Parkinsonism Unspecified (HCC); Change Mental Status; Aphasia Discharge Disposition: Home or Self Care 07/17/2024 10:53 AM CDT - 07/17/2024 11:19 AM CDT Hospital Encounter Department of Laboratory Medicine and Pathology, [place], [place] [address] [place] [address] Jelly Roche APRN, C.N.P., M.S.N. Multiple Myeloma [...] until 2024. Not drinking much alcohol now. [facility] Utilities Answer Date Recorded In the past 12 months has [employer], [employer], or water [employer] threatened to shut off services in your [...] your living situation today? I have a [facility] place to live 09/20/2024 Sex and Gender Information Value Date Recorded Sex Assigned at Male 04/16/2023 6:35 PM SCHOOL GUARD Legal Sex Male 5:48 PM SCHOOL GUARD Gender Identity Male 04/16/2023 6:35 PM SCHOOL GUARD Sexual Orientation Straight 04/16/2023 6: 35 PM SCHOOL GUARD Occupation Industry Job Start Date Job End [...] CDT Comprehensive Visit Department of Urology in [place], [place] [address] [place] [phone] Kimberly Sheldon, MPAS, P.A.-C., P.A. [address] [phone] Discharge Disposition: Home or Self Care 10/21/2024 7:45 AM CDT Clinical Communication Virtual Review in [place], [place] [address] [place] [address] 10/27/2024 11:00 AM CDT Appointment Department of Laboratory Medicine and Pathology, [facility] in [place], [place] [address] [place] [phone] Mira Valencia APRN, C.N.P., D.N.P. [address] [place] [phone] 10/27/2024 1:00 PM CDT Comprehensive Visit Department of Palliative Care in [place], [place] [address] [place] [phone] Faith Mahmood M.D., M.S. [address] [place] [phone] 10/27/2024 3:00 PM CDT Appointment Department of Radiology, [facility] in [place], [place] [address] [place] [phone] Mira Valencia APRN, C.N.P., D.N.P. [address] [place] [phone] 10/29/2024 2:00 PM CDT Telemedicine Department of Medical Genetics in [place], [place] [address] [place] [phone] Óscar Gallegos M.D. [address] [place] [phone] Dora Hernandez M.S., [facility] [address] [place] [phone] 11/11/2024 11:00 AM CDT Office Visit Division of Hematology in [place], [place] [address] [place] [phone] Kirill Grayson M.D. [address] [place] [phone] Health Maintenance Due Date Last Done Comments [...] C.N.P. LAB BLOOD ADD-ON Fi nal Result [facility] [address] [place] [address], [facility] Oz Lab - [facility] [address] [place] [address] * (ABNORMAL) Basic Metabolic Panel (09/24/2024 5:13 [...] C.N.P. LAB BLOOD ADD-ON Fi nal Result [facility] [address] [place] [address], [facility] [place] [facility] - [facility] [address] [place] [address] * CT Abdomen Pelvis without IV Contrast [...] LAB MICROBIOLOGY - GENERAL ORDERABLES Final Result [address] [place] [address] * Bacteria / Josey Culture, Blood #2 (09/20/2024 11:54 AM CDT) Only the most recent of2 resultswithin the time period is included. Bacteria/Hilaria da Culture, Blood No growth after 5 day/s of incubation. 09/25/2024 12:02 PM CDT [facility] Blood (Blood, Peripheral Draw) 09/20/2024 11:54 AM CDT 09/20/2024 11:56 AM CDT Comment:Specimen Source Site : Blood us Jyothi Rice APRN.N.P., D.N.P. LAB MICROBIOLOGY - GENERAL ORDERABLES Final Result Performing Organization Address [facility] Co de Phone Number [address] [place] [address] * Glucose, POCT (09/20/2024 11:37 AM CDT) Glucose, POCT, B 127 70 - 140 mg/dL 09/20/2024 11:37 AM CDT [facility] Blood 09/20/2024 11:3 7 AM CDT 09/20/2024 11:47 AM CDT us Generic Rals LAB POCT ORDERABLES-MANUAL Final Result Performing Organization Address City/[facility]/[place]IP [place] [address], [place] CNFL [facility] in [address] [address] * (ABNORMAL) CRP (C-Reactive Protein) (09/20/2024 11:35 AM CDT) Pathologist [facility] C-Reactive Protein (CRP), P 18.8(H) <5.0 mg/L 09/20/2024 11:47 AM CDT CNFL Blood (Blood, Venous) 09/20/2024 11:35 AM CDT 09/20/2024 11:35 AM CDT us Noel Barragan APRN, C.N.P., D.N.P. LAB BLOOD AD D-ON Final Result [facility] [address] [address], [facility] in [address] [address] * (ABNORMAL) Urinalysis with Microscopic if Indicated: Urine, Midstream (09/20/2024 11:11 AM CDT) [facility] Source Urine, Urine, Midstream 09/20/2024 12:01 PM [...] 8.0 09/20/2024 12:03 PM CDT CNFL Specific [place] 1.025 1.001 - 1.035 09/20/2024 12:03 PM CDT CNFL Urobilinogen 0.2 0.2 - 1.0 mg/dL 09/20/2024 12:03 PM CDT CNFL Urine (Urine, Midstream) 09/20/2024 11:11 AM CDT 09/20/2024 12:01 PM CDT us Noel Barragan APRN, C.N.P., D.N.P. LAB URINE OR DERABLES Final Result Performing Organization Address [facility] [place] [address], [facility] CNFL [facility] [place] [address] * (ABNORMAL) Microscopic Manual (09/20/2024 11:11 AM [...] OR DERABLES Final Result Performing Organization Address City/[facility]/ZIP Co de Phone Number [address] [place] [address], [facility] CNFL [facility] in [address] [address] * Blood Gas, Venous, POCT, Blood (09/20/2024 [...] CDT Noel Barragan APRN, C.N.P., D.N.P. LAB POCT ORD ERABLES - DEVICE Final Result [facility] [address] [place] [address], [facility] CNFL [facility] in [address] [address] * (ABNORMAL) Magnesium (09/20/2024 11:10 AM CDT) Magnesium, P 2.7(H) 1.7 - 2.3 mg/dL 09/20/2024 11:41 AM CDT CNFL Blood (Blood, Venous) 09/20/2024 11:10 AM CDT 09/20/2024 11:18 AM CDT us Noel Barragan APRN, Jyothi.N.P., D.N.P. LAB BLOOD [place] [address], [place] [address] * Lipase (09/20/2024 11:10 AM CDT) Lipase, P 38 13 - 60 U/L 09/20/2024 11:41 AM CDT CNFL Blood (Blood, Venous) 09/20/2024 11:10 AM CDT 09/20/2024 11:18 AM CDT us Noel Barragan APRN, Jyothi.N.P., D.N.P. LAB BLOOD AD D-ON Final Result Performing Organization Address [facility]/[place] [address], [address] [address] * Lactate (09/20/2024 11:10 AM CDT) Lactate, P 1.2 0.5 - 2.2 mmol/L 09/20/2024 11:37 AM CDT CNFL Blood (Blood, Venous) 09/20/2024 11:10 AM CDT 09/20/2024 11:18 AM CDT us Noel Barragan APRN, Jyothi.N.P., D.N.P. LAB BLOOD NO N ADD-ON Final Result Performing Organization Address City/[facility]/[place] [address], [place] [address] [place] [address] * (ABNORMAL) Comprehensive Metabolic Panel (09/20/2024 11:10 [...] AD D-ON Final Result Performing Organization Address [facility] [place] [address], [place] [address] * S-TSH (Thyroid-Stimulating Hormone - Sensitive) (09/20/2024 11:09 AM CDT) TSH, Sensitive 0.7 0.3 - 4.2 mIU/L 09/20/2024 11:51 AM CDT [facility] Blood (Blood, Venous) 09/20/2024 11:09 AM CDT 09/20/2024 11:18 AM CDT us Noel Barragan APRN, C.N.P., D.N.P. LAB BLOOD AD D-ON Final Result Performing Organization Address [facility] de Phone Number [address] [address], [place] [address] * ECG 12 Lead (09/20/2024 11:05 AM CDT) Ventricular Rate ECG/Min 93 BPM MUSE CO Interval 138 ms MUSE QRSD Interval 78 ms MUSE QT Interval 356 ms MUSE QTC Interval 442 ms MUSE P Ogden 64 degrees MUSE R [place] 61 degrees MUSE T Wave [place] 46 degrees MUSE 09/20/2024 11:0 5 AM [...] assessment was performed on an independent computer locomotive observer using CANDDi software. The clinical indication for performing the post-processing was worsening aphasia. Review of the senior supplier quality engineer images demonstrates appropriate segmentation of the hippocampi. [...] andassessment was performed on an independent computer locomotive observer usingCANDDi software. The clinical indication for performing thepost-processing was worsening aphasia. Review of the senior supplier quality engineer images demonstrates appropriate segmentation of thehippocampi. Left [...] worse on the left. us Jelly Roche APRN, C.N.P., M.S.N. IMG MRI P ROCEDURES Final [...] developed and its performance characteristics determined by [facility] in a manner consistent with CLIA requirements. This test has not been cleared or approved by the U.S. Food and Drug Administration. Blood (Blood, Venous) 07/17/2024 11:11 AM CDT 07/17/2024 2:01 PM CDT Narrative [facility] - 07/18/2024 11:00 AM CDT Specimen Information: Specimen ID: [id number] Specimen Type: Blood Specimen Collection Start Date: 07/17/2024 11:11 AM Specimen Received Date: 07/17/2024 2:01 PM Specimen ID: [id number] Specimen Type: Blood Specimen Collection Start Date: 07/17/2024 11:11 AM Specimen Received Date: 07/17/2024 2:44 PM Xu Evasn APRNNFranky., M.S.N. LAB BLOOD ADD-ON Final Result [facility] [address] [place], [place] [phone] [place] [address] [place], [place] [phone] [place] [address] [address] [place] [address] [place] [address] * (ABNORMAL) CBC no call back, reflex T/S HGB <8 (07/17/2024 11:11 AM CDT) [facility] Hemoglobin 14.2 13.2 - 16.6 g/dL [...] 11:11 AM CDT 07/17/2024 11:26 AM CDT Jelly Roche APRN, C.N.P., M.S.N. LAB BLOOD NON ADD-ON Final Result [facility] [address] [place] [address], [facility] DTL [facility] [address] [place] [address] [facility] [address] [place] [address] * Thyroid Function [place] (07/17/2024 11:11 AM CDT) [facility] TSH, Sensitive 0.8 0.3 - 4.2 mIU/L 07/17/2024 12:13 PM CDT DTL Blood (Blood, Venous) 07/17/2024 11:11 AM CDT 07/17/2024 11:45 AM CDT Jyothi Evans APRN.N.P., M.S.N. LAB BLOOD ADD-ON Final Result [facility] [address] [place] [address], [facility] DTL [facility] [address] [place] [address] * Immunoglobulin Free Light Chains (07/17/2024 11:11 AM CDT) Captiva Free Light Chain, S 1.31 0.3300 - 1.94 mg/dL 07/17/2024 3:37 PM CDT SDSC Lambda Free Light Chain, S 2.01 0.5700 - 2.63 mg/dL 07/17/2024 2:48 PM CDT SDSC Captiva/Lambda FLC Ratio 0.6517 0.2600 - 1.65 07/17/2024 3:37 PM CDT SDS Blood (Blood, Venous) 07/17/2024 11:11 AM CDT 07/17/2024 2:01 PM CDT Jyothi Evans APRN.N.P., M.S.N. LAB BLOOD ADD-ON Final Result [facility] [address] [place] [address] [facility] [address] [place] [address] * AST (Aspartate Aminotransferase) (07/17/2024 11:11 AM CDT) Aspartate Aminotransferase (AST), S 17 8 - 48 U/L 07/17/2024 12:13 PM CDT DTL Blood (Blood, Venous) 07/17/2024 11:11 AM CDT 07/17/2024 11:45 AM CDT Jyothi Evans APRN.N.P., M.S.N. LAB BLOOD ADD-ON Final Result [facility] [address] [place] [address], [facility] [address] [place] [address] * Sodium (07/17/2024 11:11 AM CDT) Sodium, S 143 135 - 145 mmol/L 07/17/2024 12:13 PM CDT DTL Blood (Blood, Venous) 07/17/2024 11:11 AM CDT 07/17/2024 11:45 AM CDT Jyothi Evans APRN.N.Kaitlin., M.S.N. LAB BLOOD ADD-ON Final Result Performing Organization Address City/[facility]/ZIP Co de Phone Number [facility] [address] [place] [address], [facility] [address] [place] [address] * Potassium (07/17/2024 11:11 AM CDT) Potassium, S 3.6 3.6 - 5.2 mmol/L 07/17/2024 12:13 PM CDT DTL Blood (Blood, Venous) 07/17/2024 11:11 AM CDT 07/17/2024 11:45 AM CDT Joythi Evans APRN.N.P., M.S.N. LAB BLOOD ADD-ON Final Result [facility] [address] [place] [address], [facility] [address] [place] [address] * Alkaline Phosphatase (07/17/2024 11:11 AM CDT) Alkaline Phosphatase, S 70 40 - 129 U/L 07/17/2024 12:13 PM CDT DTL Blood (Blood, Venous) 07/17/2024 11:11 AM CDT 07/17/2024 11:45 AM CDT Jelly Roche APRN, C.N.P., M.S.N. LAB BLOOD ADD-ON Final Result Performing Organization Address [facility] Co de Phone Number [facility] [address] [place] [address] * Folate (07/17/2024 11:11 AM CDT) Folate, S 15.2 >=4.0 mcg/L 07/17/2024 12:27 PM CDT DT Blood (Blood, Venous) 07/17/2024 11:11 AM CDT 07/17/2024 11:45 AM CDT Result [facility] Jelly Roche APRN, C.N.P., M.S.N. LAB BLOOD ADD-ON Final Result Performing Organization Address [facility] Co de Phone Number [facility] [address] [place] [address] * Vitamin B12 Assay (07/17/2024 11:11 AM CDT) Vitamin B12 Assay, S 428 180 - 914 ng/L 07/17/2024 12:30 PM CDT DT Comment: ----ADDITIONAL INFORMATION---- In patients being evaluated [...] 11:11 AM CDT 07/17/2024 11:45 AM CDT Result [facility] Jyothi Evans APRN.N.P., M.S.N. LAB BLOOD ADD-ON Final Result [facility] [address] [place] [address], [facility] [address] [place] [address] * (ABNORMAL) Creatinine with Estimated GFR (07/17/2024 11:11 AM CDT) Creatinine 1.40(H) 0.74 - 1.35 mg/dL 07/17/2024 12:13 PM CDT DTL Estimated GFR (eGFR) 50(L) >=60 mL/min/BSA 07/17/2024 12:13 PM CDT DTL Comment: Estimated GFR calculated using the 2020 CKD_EPI creatinine equation. Blood (Blood, Venous) 07/17/2024 11:11 AM CDT 07/17/2024 11:45 AM CDT Jyothi Evans APRN.N.P., M.S.N. LAB BLOOD ADD-ON Final Result Performing Organization Address City/[facility]/ZIP Co de Phone Number [facility] [address] [place] [address], [facility] [address] [place] [address] * Calcium, Total (07/17/2024 11:11 AM CDT) Calcium, Total, S 9.5 8.8 - 10.2 mg/dL 07/17/2024 12:13 PM CDT DTL Blood (Blood, Venous) 07/17/2024 11:11 AM CDT 07/17/2024 11:45 AM CDT Jyothi Evans APRN.N.P., M.S.N. LAB BLOOD ADD-ON Final Result [facility] [address] [place] [address], [facility] [address] [place] [address] * Albumin (07/17/2024 11:11 AM CDT) Albumin, S 4.9 3.5 - 5.0 g/dL 07/17/2024 12:13 PM CDT DTL Blood (Blood, Venous) 07/17/2024 11:11 AM CDT 07/17/2024 11:45 AM CDT Jelly Roche APRN, C.N.P., M.S.N. LAB BLOOD ADD-ON Final Result [facility] [address] [place] [address], [facility] [address] [place] [address] from Last 3 Months Insurance MEDICARE HUMAN Advance Directives For more information, please contact: [phone] * DNR/DNI (Latest Code Status on File) Date Activated Date Inactivated Comments 09/21/2024 7:13 AM 09/24/2024 2:10 PM Question Answer Comments DNR/DNI (Do Not Resuscitate/ Do Not Intubate): Discussed- Alternative/surrogate decision maker Care Teams Sales Record Clerk Relationship Specialty Start Date End Date None Reported, Pcp PCP - General Family Medicine 09/20/24
--- OUTSIDE RECORDS SUMMARY | 2024-10-16 19:05 | XMS_ITS ---
Author Organization [facility] Address [address] [place] [address] Care Team Providers Care Dog Behaviorist Name Role Phone None Reported, Pcp Primary Care Provider Unavail able Genomics Program Status:Identified (Enrolling) Start date:09/22/2024 Continued Care and Services Coordination
--- OUTSIDE RECORDS SUMMARY | 2024-10-16 19:05 | XMS_ITS ---
Author Organization [facility] Address [address] [place] [address] Care Team Providers Care Cnc Lathe Programmer Name Role Phone None Reported, Pcp [...] Disturbance 08/14/2024 Anemia Iron Deficiency 06/08/2023 Other [facility] Current Drug Therapy 04/17/2023 Multiple Myeloma Not [...]
--- OUTSIDE RECORDS SUMMARY | 2024-10-16 19:05 | XMS_ITS | Encounter Summary ---
Author Organization [facility] Address [address] [place] [address] Care Team Providers Care Pot Fisher Name Role Phone None Reported, Pcp Primary Care Provider Unavail able Encounter Details Date Type Department Care Team (Late st Contact Info) Description 09/30/2024 Clinical Communication Department of Family Medicine, [facility], in [place], [place] [address] [place] [phone] None Reported, Pcp Social History Tobacco Use Types Packs/Day Years Used Date Smoking Tobacco: Never Passive Smoke Exposure: Never Smokeless Tobacco: Never Alcohol Use Standard Drinks/Week Comments Not Currently 14 (1 standard drink = 0.6 oz pure alcohol) Drank beer regularly until 2024. Not drinking much alcohol now. [facility] Utilities Answer Date Recorded In the past 12 months has [employer], gas, oil, or water [employer] threatened to shut off services in your [...] your living situation today? 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 [address] [phone] Discharge Disposition: Home or Self Care 10/21/2024 7:45 AM CDT Clinical Communication Virtual Review in [place], [place] [address] [place] [phone] 10/27/2024 11:00 AM CDT Appointment Department of Laboratory Medicine and Pathology, [facility], in [place], [place] [address] [place] [phone] Mira Valencia APRN, C.NRichy, D.N.P. [address] [place] [phone] 10/27/2024 1:00 PM CDT Comprehensive Visit Department of Palliative Care in [place], [place] [address] [place] [phone] Faith Mahmood M.D., M.S. [address] [place] [phone] 10/27/2024 3:00 PM CDT Appointment Department of Radiology, [facility], in [place], [place] [address] [place] [phone] Mira Valencia APRN, C.NRichy, D.N.P. [address] [place] [phone] 10/29/2024 2:00 PM CDT Telemedicine Department of Medical Genetics in [place], [place] [address] [place] [phone] Óscar Gallegos M.D. [address] [place] [phone] Dora Hernandez M.S., [facility] [address] [place] [phone] 11/11/2024 11:00 AM CDT Office Visit Division of Hematology in [place], [place] [address] [place] [phone] Kirill Grayson M.D. [address] [place] [phone] documented as of this encounter Visit Diagnoses Not on filedocumented in this encounter Care Teams Pot Fisher Relationship Specialty Start Date End Date None Reported, Pcp PCP - General Family Medicine 7/5/25 documented as of this encounter
[2024-10-16 19:11] VITALS: BP 153/77; PULSE 88; RESP 18; TEMP 36.9; O2SAT 97
--- NOTE | 2024-10-16 19:39 | ED_ITS ---
HPI - General Adult General Chief complaint: Urogenital Problems, Male Stated complaint: catheter issue Time Seen by Provider: 10/16/24 19:15 Source: patient, EMS and RN notes reviewed Mode of arrival: EMS Limitations: other (Chronic dementia) History of Present Illness HPI narrative: 84-year-old male presents to the emergency department unable to void urine, personally unbothered. Patient has significant dementia and is unfortunately unable to give me much history regarding the status of his urological problems. The thankfully does, some records that indicates that he had a urinary catheter placed on 09/22 due to kidney failure and urinary retention. He does not typically get his care through our facility. From what I can tell from the nursing notes from his memory care facility, he has tolerated this catheter very poorly. They actually did a urinalysis on the and he is currently on ciprofloxacin. There was some low-grade infection both E coli and Pseudomonas for grown. There were some resistant organisms but sensitive to fluoroquinolones, treated with 250 b.i.d. of Cipro for 7 days and is still currently on treatment according to his [facility] records. Patient has not voided since the catheter was removed this morning. I am not sure what time. It does not sound as though he has seen urology. It sounds like this was a home care nurse that removed the catheter. It looks like he was started on Flomax a few weeks ago. He does not verbalize any concern with feeling like his bladder is full. Reports that he has been eating and drinking normally. He denies fever, denies abdominal pain. His insight into any of these things is extremely limited though. We do check is brief and see that it is dry. I have the nurse bladder scan him and it shows 250-270 consistently. He is very comfortable in letting us bladder scan showing no discomfort with pressure. Remainder of his history is taken from written records accompanying him today. ROS is unreliable but he does deny times 12 systems. He becomes quite animated with refusal of a catheter when I mentioned that we may have to put 1 back in if he is unable to void. Past medical history seems most notable for fronto temporal dementia, Parkinson's disease. Medications notable for Cipro Flomax and p.r.n. lorazepam. He verbalizes that he is very willing to drink fluids to try to fill his bladder more thoroughly Related Data Home Medications ?Medication ?Instructions ?Recorded ?Confirmed ciprofloxacin HCl 250 mg tablet 250 mg PO BID 10/16/24 10/16/24 lorazepam 0.5 mg tablet 0.5 mg PO BID PRN 10/16/24 0 10/16/24 tamsulosin 0.4 mg capsule 0.4 mg PO QPM 10/16/2410/16 Allergies Allergy/AdvReac Type Severity Reaction Status Date / Time itraconazole Allergy Intermediate Verified 03/25/24 13:13 rivaroxaban Allergy Intermediate Verified 03/25/24 13:13 Sulfa (Sulfonamide Allergy Intermediate Verified 03/25/24 13:13 Antibiotics) [facility] Social History Smoking Status: Never smoker Do you use any of these nicotine containing products: None How often do you have a drink containing alcohol: never AUDIT-C Alcohol total score: 0 Non-prescribed substance use: denies use Exam Const: Vital Signs, click to edit/add: Vital Signs - 24 hr 10/16/24 19:11 Temperature 98.4 F Pulse Rate [Right Pulse Oximeter] 88 Respiratory Rate 18 Blood Pressure [Ri ght Upper Arm] 153/77 H Pulse Oximetry 97 Oxygen Delivery Me thod Room Air Documenting provider has reviewed patient's vital signs: yes Other: Friendly and calm but becomes animated an irritable when we mention replacement of the catheter. Appears well-nourished, well-hydrated, clean and nontoxic. HENMT: Common normals: normocephalic, moist oral mucous membranes and oropharynx normal Head and scalp: normocephalic Face and sinus: normal facial exam Mouth: oral and palatal mucosa normal Eye: Common normals: conjunctivae normal Conjunctiva: conjunctiva(e) normal Neck & C-Spine: General: normal visual inspection Resp: Common normals: normal respiratory effort, no use of accessory muscles and clear to auscultation bilaterally Effort & inspection: able to speak in complete sentences Auscultation: clear to auscultation bilaterally Cardio: Common normals: regular rate, regular rhythm, S1 normal heart sound, S2 normal heart sound and no murmurs Rate: regular rate Rhythm: regular rhythm Heart sounds: S1 normal and S2 normal GI: Common normals: Normal to inspection, nondistended, normoactive bowel sounds present, soft to palpation, non-tender and no hepatosplenomegaly Palpation: soft and no hepatosplenomegaly : Other: Normal appearing external genitalia. Neuro: Other: Limited awareness. Poor historian. Shuffling gait, moves extremities symmetrically. Psych: Activity/motor behavior: appropriate eye contact Insight: fair Judgement: limited Skin: Common normals: no rashes or lesions noted General skin exam: no rashes or lesions noted Course Course ED Course: 84-year-old male with recent urinary retention, presenting with lack of urinary void and 270 on bladder scan. We did voiding trial and patient was unable to void. At this point though, I am not convinced that he necessarily needs a catheter replaced and I would like to see him drink at least 12 peripheral about 16 oz of fluid over the next hour and repeat the bladder scan to see if we can hit a higher threshold. He does have significant dementia but his accompanying paperwork indicates selective treatment and he is quite adamant that he would not want a catheter replaced. I would like to try to talk to his family and see what their thoughts are on this. He is certainly at risk for worsening renal failure if he is unable to empty his bladder but this may be within his goals of treatment, will need input from his family. Update: I was able to speak with Cesar, patient's son. Hep this time, he is leaning towards allowing the catheter to be left out. I have encouraged him to let us perform this trial of lots of fluids, repeat bladder scans and seeing how things go. We will encourage about 16 oz of fluid, multiple voiding attempts and if we are successful also do a postvoid residual bladder scan to gather information. He is already on Flomax I do not think starting that were increasing the dose will make any difference. Son informed me that he also has urology follow-up scheduled for Sunday. Patient continues to refuse catheter placement. Reevaluation(s) Time of Reevaluation #1: 21:11 Reevaluation #1: Patient did very good job of drinking fluids for us. He took in about 16 oz of liquid and we did do another trial of voiding, he was unable to void. He does have some overflow incontinence we are measuring at least 100 mL in his brief. But his bladder scan is reflecting retention of around 500 mL. Patient is not the least bit bothered by this, it does not show discomfort with pressing on the bladder, with the bladder scans or distress that he feels like he cannot void. I had another conversation with Cesar regarding the patient's situation. We discussed that even though the overflow is a fairly good sign, it is likely not enough to keep the bladder safe. Risk of urinary bladder rupture, kidney damage, infection and other complications is very real. Patient is adamant that he does not want a catheter. He gets very agitated if we bring it up but then quickly calms back down when the let it go. I think that he would need to be heavily sedated to put a catheter and I think the chance of him attempting to remove it, pull it out or cause other complications is extremely high. Will respect the patient and family's decision to leave the catheter out and keep therefore planned follow-up with urology for Sunday. Written instructions provided to the group home facility to consider bladder scan, empiric straight catheterization and return to the ED if he has significant agitation that they are not able to redirect and we would reconsider placement of the catheter at that time. Patient and family are comfortable with this plan. Vital Signs Vital signs: Initial Vital Signs Temperature 98.4 F 10/16/24 19:11 Temperature Source Temporal Artery Scan 10/16/24 19:11 Pulse Rate 88 10/16/24 19:11 Respiratory Rate 18 10/16/24 19:11 Blood Pressure 153/77 H 10/16/24 19:11 Blood Pressure Mean 102 10/16/24 19:11 Blood Pressure Position Sitting 10/16/24 19:11 Pulse Oximetry 97 10/16/24 19:11 Oxygen Delivery Method Room Air 10/16/24 19:11 Vital Signs Temperature 98.4 F 10/16/24 19:11 Pulse Rate 88 10/16/24 19:11 Respiratory Rate 18 10/16/24 19:11 Blood Pressure 153/77 H 10/16/24 19:11 Pulse Oximetry 97 10/16/24 19:11 Oxygen Delivery Method Room Air 10/16/24 19:11 Temperature 98.4 F 10/16/24 19:11 Pulse Rate 88 10/16/24 19:11 Respiratory Rate 18 10/16/24 19:11 Blood Pressure 153/77 H 10/16/24 19:11 Pulse Oximetry 97 10/16/24 19:11 Oxygen Delivery Method Room Air 10/16/24 19:11 Discharge Plan Discharge Clinical Impression: Acute on chronic urinary retention Patient Disposition: Home w/ Parent or Adult Condition: Stable Instructions: Urinary Retention in Men (ED) Additional Instructions: As we discussed, your bladder is not emptying urine properly. It does sound as though this is been an ongoing problem. Because you did not tolerate having the catheter very well for the last 4 weeks, and because of your memory problems, we did contact your son Cesar to discuss the situation further. At this time, Cesar is comfortable with leaving the catheter out. He is aware that this could lead to overflow incontinence as a best case scenario, the may lead to bladder rupture or further damage to the kidneys. You were adamant that you do not want the catheter replaced and since you tolerated it so poorly for the last month, I will respect your and your son's decision. To the memory care staff, if he becomes increasingly agitated, I would recommend bladder scan or impairing straight catheterization if he would allow this. Cesar is planning to come back in to town tomorrow and may be more readily available for further questions and patient is to keep his pending urology appointment for Sunday. Please keep giving him the Flomax on his medication list to hopefully help his bladder empty. Activity Level: Activity as Tolerated Discharge Diet: Regular Prescriptions: No Action ciprofloxacin HCl 250 mg tablet 250 mg PO BID lorazepam 0.5 mg tablet 0.5 mg PO BID PRN tamsulosin 0.4 mg capsule 0.4 mg PO QPM Follow Up/Referrals: Kirill Grayson MD [Primary Care Provider, Nephrology] Stand Alone Forms: [employer] Info Instructions
--- OUTSIDE RECORDS SUMMARY | 2024-10-16 20:00 | XMS_ITS ---
Author Name Auto Generated, Auto Generated Organization [employer] Functional Status No Results Mental Status No Results Allergies and Intolerances No Known Allergies Problems Active Concerns * Frailty syndrome in geriatric patient* Code: [id number] * Start Date: SunAug 26 17:10:00 EDT 2024 * End Date: * Text: * Other frontotemporal neurocognitive disorder* Code: [id number] * Start Date: SunOct 13 18:55:00 EDT 2024 * End Date: * Text: * Health care maintenance* Code: [id number] * Start Date: SunOct 13 15:52:00 EDT 2024 * End Date: * Text: * Acute renal failure, unspecified acute renal failure type* Code: [id number] * Start Date: SunOct 13 18:48:00 EDT 2024 * End Date: * Text: * Urinary retention* Code: [id number] * Start Date: SunOct 13 18:53:00 EDT 2024 * End Date: * Text: * Hydronephrosis, unspecified hydronephrosis type* Code: [id number] * Start Date: SunOct 13 18:54:00 EDT 2024 * End Date: * Text: Reason for Referral
--- OUTSIDE RECORDS SUMMARY | 2024-10-16 20:00 | XMS_ITS ---
Author Name Auto Generated, Auto Generated Organization [facility] Functional Status No Results Mental Status No Results Allergies and Intolerances No Known Allergies Problems Active Concerns * Frailty syndrome in geriatric patient* Code: [id number] * Start Date: SunAug 26 17:10:00 EDT 2024 * End Date: * Text: * Other frontotemporal neurocognitive disorder* Code: [id number] * Start Date: SunOct 13 18:55:00 EDT 2024 * End Date: * Text: * Health care maintenance* Code: [id number] * Start Date: SunOct 13 15:52:00 EDT 2024 * End Date: * Text: * Acute renal failure, unspecified acute renal failure type* Code: [id number] * Start Date: SunOct 13 18:48:00 EDT 2024 * End Date: * Text: * Urinary retention* Code: [id number] * Start Date: SunOct 13 18:53:00 EDT 2024 * End Date: * Text: * Hydronephrosis, unspecified hydronephrosis type* Code: [id number] * Start Date: SunOct 13 18:54:00 EDT 2024 * End Date: * Text: Reason for Referral
--- NOTE | 2024-10-16 20:53 | PC.NURSE ---
pt walked with walker to bathroom, has random unprovoked shouting intermittently, no void, brief changed as there was some incontinent urine in it, bladder scan reveals 497ml
--- NOTE | 2024-10-16 21:19 | PC.NURSE ---
spoke with RN at [facility], aware pt is returning without catheter, pt Son aware and agrees with plan and ambulance transport back to [facility]
== END 2024-10-16 21:55 | disposition home or self-care (01) ==
PROVIDERS: Emergency Provider Family Medicine; PCP Internal Medicine Nephrology
DX: R33.9 Retention of urine, unspecified (principal)
CPT/HCPCS: 51798; 81003; 99283

== ENCOUNTER 2024-10-16 21:55 | Outpatient (CLI) | payer MEDICARE, OTHER, SELFPAY | END 2024-10-16 21:56 | disposition home or self-care (01) | PROVIDERS: PCP Internal Medicine Nephrology; Visit Provider Family Medicine | DX: R33.9 Retention of urine, unspecified (principal) | CPT/HCPCS: A0425; A0428 ==